=== PATIENT | female | born 1955 | race Caucasian/White ===

== ENCOUNTER 2023-06-11 12:08 | Inpatient (IN) | payer MEDICARE, OTHER, SELFPAY ==
[2023-05-16 10:59] VITALS: BMI 28.3
[2023-06-11] VITALS (18 sets, daily range): BP systolic 81–185; BP diastolic 50–98; PULSE 73–101; RESP 12–22; TEMP 35.6–36.8; O2SAT 5–100; BMI 28.3
[2023-06-11] MEDS: LACTATED RINGERS 1,000 ML 120 ML IV ×2 (13:57→16:02)
--- NOTE | 2023-06-11 13:59 | PM.PREOP ---
Pre-operative Note COVID-19 Criteria for continued procedure: Expected advancement of disease process, Possibility delay results in more complex future surgery or treatment, Increased loss of function, Continuing or worsening of significant or severe pain, Deterioration of the patient's condition or overall health and Delay expected to result in less-positive ultimate med/surg outcome Interval Note History & Physical reviewed/Exam performed by Physician: Yes Changes to H&P: No
[2023-06-11] MEDS: CEFAZOLIN 2 GM/100 ML PREMIX 100 ML IV ×2 (15:00→23:06)
--- NOTE | 2023-06-11 15:10 | SUR.OPER ---
Prone on spine table, head in foam head support, padded chest and pelvic supports, gel pad at knees, lower legs supported by pillows; nipples, genitalia and toes free of pressure, arms secured on foam padded arm boards at <90 degrees abduction. Tape over blanket at thigh secured to table.
[2023-06-11] MEDS: BUPIVACAINE LIPOSOME 266 MG/20 ML VIAL INJ (15:17)
[2023-06-11] MEDS: BUPIVACAINE 0.25% (PF) 30 ML, EPINEPHrine 0.15 MG INJ (15:17)
--- NOTE | 2023-06-11 17:00 | DI.RAD.S_ITS ---
PROCEDURE: XR LUMBAR SPINE 2-3V INDICATIONS: L3-4 TLIF TECHNIQUE: 2 spot fluoroscopic images of the lumbar spine were acquired. COMPARISON: None. FINDINGS: Spot fluoroscopic images demonstrate postsurgical changes from posterior fixation at L3-4 with bilateral pedicle screws, interbody rods, and a disc spacer. IMPRESSION: Status post posterior fusion at L3-4 with expected postoperative appearance. Approved by: Mathew Mann M.D. on 06/11/2023 at 17:08
--- NOTE | 2023-06-11 17:24 | P.OP_ITS ---
Operative Date/Time/Diagnoses Date of procedure: 06/11/23 Time of procedure: 17:25 Pre-op diagnosis: 1. L3-4 spinal stenosis with neurogenic claudication 2. Post laminectomy syndrome Post-op diagnosis: same Procedure & Clinicians Procedure: 1. L3-4 Postero-lateral and posterior interbody fusion 2. L3-4 interbody cage placement. 3. L3-4 decompressive laminectomy with bilateral facetecomies 4. L3-4 Posterior non-segmental instrumentation 5. [place] of bone marrow from iliac crest 6. Utilization of microsurgical technique and operating microscope Same procedure as scheduled: Yes Indications: Patient has been having chronic back pain and worsening lumbar radiculopathy and symptoms of neurogenic claudication. Patient failed multiple conservative management with worsening pain weakness and numbness in her lower extremity. Patient has been having difficulty performing activity of daily living. After discussing risks benefits of treatment options, patient elected proceed with surgery. Surgeon: Javed Vallecillo Entrepreneurial Finance Professor: Roseanne James Click Yes if Unassisted: No Anesthesia Type: General Operative Notes Closure Type: primary Specimen(s): none sent Prosthetic devices, grafts, tissues, transplants, or devices: Globus revolve screws, Rise cage Estimated Blood Loss (mL): 50 Blood products transfused: none Procedure in detail: Patient was seen in the preoperative area. Risks and benefits of the surgery was discussed with the patient. Informed consent was obtained from the patient and placed in the chart. Surgical site was marked. Patient was taken to the operative room. General anesthesia was administered. Prophylactic antibiotic was given to the patient less than 30 min before the incision was made. Patient was placed into a prone position on the Omar table. Patient's back was then prepped and draped in the sterile fashion. Time-out was performed at this time. Using AP and lateral C-arm imaging the interval between L3-4 was identified and marked on patient's back. A 2 inch incision 2 in from midline was made on the right side first. The fascia was incised in line with skin incision. Globus MARS retractors was placed inside the incision and docked onto the L3 lamina. Using microsurgical technique and operating microscope, a L3 laminectomy and L3- 4 facetectomy was performed using a Kerrison rongeur. The laminectomy and facetectomy was performed in order to decompress patient's cauda equina as well as the nerve roots exiting at the L3-4 level. The disc space at L3-4 was identified. And a total diskectomy was performed at L3-4 level. The endplates were decorticated using a rasp and shaver. The total diskectomy and decortication was performed at L3-4 level in order to to accomplish a L3-4 fusion. The local bone from the laminectomy and facetectomy was saved for local bone grafting. After the total diskectomy and decortication was completed, Globus DBM bone graft material was combined with local bone that was harvested earlier. At this time, a separate skin is incision was made over the iliac crest. A Jamshidi needle was inserted into the iliac crest through a separate skin incision. 5 cc of bone marrow aspiration was obtained through the separate skin incision using a Jamshidi needle from the iliac crest. The bone marrow aspiration was combined with local bone and DBM bone grafting material. The bone grafting material was placed into the L3-4 interbody space along with a expandable cage. The cage was expanded to its maximum height using the torque limiting screwdriver. At this time a mirror image incision was made on the left side. The fascia was incised in line with the skin incision. Globus MARS retractor was inserted and docked onto the L3-4 posterolateral gutter. Using the power drill, posterior- lateral decortication was performed at L3-4 level until bleeding cortical bone was identified. The remaining bone grafting material was placed into the L3-4 posterior lateral gutter he order to accomplish posterolateral fusion at the L3- 4 level. Using the double C-arm technique, pedicle screws were placed into the L3-4 pedicles bilaterally. This was done by placing the Jamshidi needle into the pedicles, then placing the guidewires over the Jamshidi needle, and finally placing the cannulated screws over the guidewires bilaterally. After the pedicle screws were placed, 2 titanium rods was locked into the heads of the pedicle screws using locking caps and torque limiting screwdriver. After all the hardware was placed, and confirmed with AP and lateral C-arm imaging, the wound was then irrigated with sterile normal saline and packed with Ray-Navya gauze for 3 min to accomplish hemostasis. After the gauze was removed the deep fascia was closed with #1 Vicryl suture. The subcutaneous layer was closed with 2-0 Vicryl. The skin was closed with skin alnana. Patient tolerated the procedure well. There were no complications. Complications: none Post-operative Condition: stable Disposition: PACU Plan for aftercare: Admit to inpatient hospital
[2023-06-11] MEDS: fentaNYL 100 MCG/2 ML INJ IV (17:40)
[2023-06-11] MEDS: hydrOXYzine 50 MG/ML INJ 25 MG IM (17:55)
[2023-06-11] MEDS: ALBUTEROL/IPRATROPIUM 3 ML AMPUL INH (18:20)
--- NOTE | 2023-06-11 19:05 | PC.NURSE ---
Assess- Patient is alert and oriented x2/3. Just up from pacu. Patient had a TLIF. Dressing is cdi to lower back. Patient was moving restlessly down in pacu and making jerking movements and sticking her tongue out. Given Vistaril and other pain medications down in PACU. She has a hx of smoking a pack a day and has a dx of copd. Patient is satting around 90%. Her blood pressure is wnl and her is at her bedside.
[2023-06-11] MEDS: LACTATED RINGERS 1,000 ML 125 ML IV (19:49)
[2023-06-11] MEDS: GABAPENTIN 400 MG CAPSULE 800 MG PO (20:58)
[2023-06-11] MEDS: ACETAMINOPHEN 325 MG TABLET 650 MG PO (20:58)
[2023-06-11] MEDS: SENNOSIDES 8.6 MG TABLET 17.2 MG PO (20:58)
[2023-06-11] MEDS: DOCUSATE 100 MG CAPSULE PO (20:58)
[2023-06-11] MEDS: HYDROMORPHONE 0.5 MG INJ IV (20:59)
[2023-06-12] VITALS (8 sets, daily range): BP systolic 142–153; BP diastolic 54–117; PULSE 79–92; RESP 16–20; TEMP 35.8–36.9; O2SAT 86–94
[2023-06-12] MEDS: OXYCODONE IR 10 MG TABLET PO ×4 (04:30→20:21)
[2023-06-12] MEDS: ACETAMINOPHEN 325 MG TABLET 650 MG PO ×3 (04:30→22:13)
[2023-06-12] MEDS: LACTATED RINGERS 1,000 ML 125 ML IV (04:30)
[2023-06-12] MEDS: CEFAZOLIN 2 GM/100 ML PREMIX 100 ML IV (06:22)
--- NOTE | 2023-06-12 07:50 | PM.PNPO.1 ---
Subjective Subjective Date Patient Seen: 06/12/23 Time Patient Seen: 07:50 Interval history: Patient's pain is [id number]. Denies fever or chills. No nausea or vomiting. Patient's is home to assist her. Exam Vital Signs (past 8 hours): - 06/12/23 06:24 Pulse Rate 79 Respiratory Rate 16 Pulse Oximetry 94 Oxygen Flow Rate 5 Oxygen Delivery Method Nasal Cannula Oxygen Flow Rate 5 Narrative Exam Narrative: Pleasant 68-year-old female resting comfortably in bed in no apparent distress. Motor functions intact bilateral lower extremities. Sensation grossly intact to light touch bilateral lower extremities. Const General: cooperative and comfortable Nutritional Appearance: average body habitus Orientation: alert Resp Effort & Inspection: normal respiratory effort and able to speak in complete sentences PFSH Medical History Brain aneurysm Chronic kidney disease COPD (chronic obstructive pulmonary disease) Duodenal ulcer perforation Erythrocytosis History of common carotid artery stent placement Hyperlipidemia Hypertension Primary hyperparathyroidism Smoker Surgical History History of appendectomy History of surgical procedure History of surgical procedure Hx of tonsillectomy Social History household members: spouse Smoking Status: Current every day smoker alcohol intake: current Assessment & Plan Post-op Postoperative Procedures: Procedures Operation Date: 06/11/23 14:45 Actual Procedure Side Surgeon p L3-4 BRENNA Vallecillo MD Postoperative day: 1 Postoperative status: doing well Postoperative plan: routine post-op care Postoperative plan narrative: Disposition today or tomorrow pending physical therapy Quality VTE Deep Vein Thrombosis/Pulmonary Embolism Present on Admission: No
[2023-06-12] MEDS: METOPROLOL ER 50 MG TABLET PO (08:57)
[2023-06-12] MEDS: PRAMIPEXOLE 0.25 MG TABLET PO ×2 (08:57→20:20)
[2023-06-12] MEDS: ATORVASTATIN 20 MG TABLET 80 MG PO (08:58)
[2023-06-12] MEDS: GABAPENTIN 400 MG CAPSULE 800 MG PO ×2 (08:58→20:21)
[2023-06-12] MEDS: AMLODIPINE 5 MG TABLET 10 MG PO (08:58)
[2023-06-12] MEDS: PANTOPRAZOLE DR 40 MG TABLET PO (08:58)
[2023-06-12] MEDS: DOCUSATE 100 MG CAPSULE PO ×2 (08:58→20:19)
[2023-06-12] MEDS: LOSARTAN 25 MG TABLET PO (08:58)
--- NOTE | 2023-06-12 10:44 | CM.DANOTE ---
Addendum entered by DARWIN Izaguirre 06/12/23 14:08: Daniella at [facility] reports they can accept patient pending 3 midnight stay. Transport arrangements to follow if needed. DM Program Planner Basilia faxed PT/OT notes to Daniella when available. SL Addendum entered by DARWIN Izaguirre 06/12/23 12:13: PT/OT rec SNF at this time. GROUT MACHINE OPERATOR spoke with patient and spouse at bedside. Patient adamantly does not want SNF and wants to go home,. Patient agreed to let this GROUT MACHINE OPERATOR put a ref to [facility] for now but reports not wanting it. GROUT MACHINE OPERATOR informed patient of 3 midnight requirement for SNF and patient wants to d/c home today. GROUT MACHINE OPERATOR encouraged patient to have that conversation with [facility]. Spouse agrees that he can assist with her d/c needs. GROUT MACHINE OPERATOR updated nursing staff. CM Program Planner Basilia faxed initial ref to [facility]. GROUT MACHINE OPERATOR spoke with Daniella at [facility]. Agreed to review case. Filling up on beds now and reports a few days would be ideal. Plan: patient likely to d/c home due to preference. Daniella at [facility] reviewing ref. CM team will continue to follow closely. Original Note: DCP Assessment Note: Patient is a 68yo f here following planned TLIF with Dr. Vallecillo on 06/11/23, additional PMH of restless leg syndrome? [facility] note reports d/c today or tomorrow pending how patient does with PT/OT. PCP Dr. Karri Powers [facility]. Per RN, able to get up with nursing but nurse had to brace her due to baseline muscle spasms causing difficulty with mobility. GROUT MACHINE OPERATOR entered room and introduced self and role. Patient resting in chair and accompanied by spouse Neo ([phone]) at bedside. Patient reports being indep at baseline but struggled with being active recently due to pain in back. Uses 02 at home. Has a cane/walker, no steps into house. Does not drive due to involuntary muscle spasms and drives her and can assist her at home. PT/OT eval pending at this time. Plan: pending PT/OT eval, likely home when medically stable. Transport with in POV. CM team will continue to follow as needed. DARWIN Izaguirre Discharge Planning/Care Management CM Discharge Assessment Start: 06/12/23 10:43 Freq: Status: Active Protocol: Document 06/12/23 10:43 SL (Rec: 06/12/23 10:44 SL [id number]) Discharge Planning Assessment Assigned Train Caller DARWIN Malloy DPOA/Assigned Designee Name Neo Esposito (spouse) Contact Information [phone] Advance Directives? No History Provided By Patient,Medical Record Prior Living Arrangements House Household Members spouse Type of transporation used prior to Relies on Others admit Comment has been driving her for two years Independent with ADL's Yes Is patient alert and oriented? Yes Needs Assistance With Home Chores / Shopping DME Already Rented / Owned FWW / Walker,Cane,Oxygen Discharge Plan Home Transportation Arrangement spouse in POV Whiteboard Updated in Patient Room with Yes name and ext. # of Train Caller Review Status In Process Next Review Type Continued Stay Review Pre-Anesthesia Assessment Start: 05/16/23 10:59 Freq: Status: Complete Protocol: Document 05/16/23 10:59 AK (Rec: 05/16/23 11:39 AK [id number]) Pre-Anesthesia Assessment Patient Information Reviewed Via Phone Assessment Assessment Completed With Patient Diagnostic Results BMP/CMP,CBC Primary Care Provider Karri Powers Medical Clearance Received Yes Specialist Seen Inspector Eyeglass,Orthopedist, Carpet Measurer Comment Cardiology and pulmonology clearance recevied. Preferred Language Comoran Height 157.48 cm Weight 70.307 kg Body Mass Index (BMI) 28.3 Hearing Ability Normal Visual Impairment Partially Limited Visual Assist Glasses Dentition Type Full- Upper Barriers to Learning None Hx Anesthesia Reactions No Hx Family Anesthesia Reaction No Hx Malignant Hyperthermia No Hx Blood Transfusions No Anesthesia Review Requested No Night Worker No alcohol intake current alcohol intake frequency holidays/special occasions only Smoking Status Current every day smoker Tobacco type cigarettes Smoking cigarettes per day 15 Substance Use Type does not use Pain Present Pain Reported Comment back, right leg pain Musculoskeletal Symptoms Back Pain,Difficulty Walking, Radiating Pain into Limb History of Falling (Recent or History of Yes ) Comment Last fall 6-8 mo ago Patient is completely paralyzed or No completely immobile Ambulatory Aid Crutches/cane/walker Prosthesis or Orthotic Device Cane,Front Wheel Walker Gait/Transferring Weak Mental Status Oriented to own ability Is patient on oxygen? Yes: Bedtime 2L Does patient have CERON/SOB No Hx Sleep Apnea No Currently Taking a Beta Brown Yes: Metoprolol Can You Climb a Flight of Stairs Without No SOB Hx Chest Pain No Hx SOB No Hx Syncope or Dizziness No Anti-Coagulant Therapy Yes: Plavix and aspirin Has a Inspector Eyeglass Yes Inspector Eyeglass name Dr Mcwilliams at [facility] Cardiology Cardiac Testing Yes: EKG at [facility] Hx Pacemaker/ICD No Pacemaker Rep Required? No Cardiac Clearance Received Yes Comment Patient to stay on Asirin 81mg preop per cardio but needs to clarify plavix Diet Type At Home Regular Dysphagia No Urinary Catheter Present No Hx Urinary Self Catheterization No Diabetes Yes HgbA1C 6.9 Date 53 Patient No Lactating No Hx Drug Resistant Organism No Presence of External or Internal Medical Yes: 9 coils in brain; cardiac Devices stent Marital Status Lives With spouse Current Living Arrangements House Number of Floors (Floors) One Floor Number of Stairs To Enter/Railing? none Support System Spouse Does the Patient Have Assistance After Yes Surgery Patient Discharge Plan Description Return Home Feels Safe in Current Environment Yes Been Physically Hurt or Threatened By a No Person in Current Environment Do you have thoughts of harming yourself None or others? Are you currently considering suicide? No Do you have a plan to hurt yourself or No Plan others? Do You Have Any Spiritual Beliefs That No May Affect Your HC Choices? Do You Have Any Cultural Practices That No May Affect Your HC Choices? Who Can We Speak to About Patient's Care Neo Esposito Identifying Code for Release of Patient Declined Information Health Care Proxy/Next of Kin Neo Esposito Health Care Proxy Emergency Contact Name Neo Esposito Emergency Contact Advance Directives? No PAC Instructions Assistance for 24 hours post- op,Diabetes instructions,Do not shave/clip surgical site, Durable medical equipment, Medications to take/avoid, Nasal antibiotic,No ETOH/ petroleum product on skin DOS, NPO,Post-op transportation,Pre -surgical wash,Sensory aids, Sturdy shoes/comfortable clothes,Do not bring valuables and remove jewelry
--- NOTE | 2023-06-12 10:48 | PT.IIE ---
Current Diagnoses Spinal stenosis, lumbar region with neurogenic claudication (06/11/23) Postlaminectomy syndrome, not elsewhere classified (06/11/23) Surgery Performed Operation Date: 06/11/23 14:45 Actual Procedures p L3-4 TLIF - Javed Vallecillo MD Surgical History (Last Reviewed 06/12/23 @ 11:50 by Favio Decker DO) History of appendectomy History of surgical procedure History of surgical procedure Hx of tonsillectomy Medical History Brain aneurysm Chronic kidney disease COPD (chronic obstructive pulmonary disease) Duodenal ulcer perforation Erythrocytosis History of common carotid artery stent placement Hyperlipidemia Hypertension Primary hyperparathyroidism Smoker Physical Therapy Inpatient Evaluation/Re-Eval M1 PT/OT-IP Prior Functional Status Start: 06/12/23 13:00 Freq: NEEDED Status: Active Protocol: Document 06/12/23 13:00 AB (Rec: 06/12/23 13:28 AB [id number]) Medical Review Prior Functional Status Medical History Reviewed Yes Communication Pt is able to express all needs. Mobility and Gait Pt reports she ambulates with 4WW or SPC in her home at baseline. Activities of Daily Living and IADL's IND with all ADLs, performs all IADLs Prior Functional Level (Other details) Pt reports she uses 2L of supplemental O2 at night. She also reports having difficulty with her balance and fine motor control. Social History Household Members spouse Living Arrangements House Number of Floors (Floors) One Floor Number of Stairs To Enter/Railing? No YEHUDA, only a threshold. Home Environment Standard Height Toilet,Walk in Shower,Built-In Shower Seat Home Equipment Four Wheel Walker,Straight Cane,Shower Seat without Backrest,Hand Held Shower,Grab Bars Near Toilet,Grab Bars In Shower Additional Social History Comment Pt lives with her who is able to assist her 16/04 if needed. M2 PT-IP Current Condition Start: 06/12/23 13:00 Freq: NEEDED Status: Active Protocol: Document 06/12/23 13:00 AB (Rec: 06/12/23 13:28 AB [id number]) Physical Therapy Current Condition Current Condition Evaluation Date 06/12/23 Treatment Diagnosis s/p lumbar TLIF L3-L4 Onset Date 06/11/23 M3 PT-IP Subjective Start: 06/12/23 13:00 Freq: NEEDED Status: Active Protocol: Document 06/12/23 13:00 AB (Rec: 06/12/23 13:28 AB [id number]) Subjective Physical Therapy Visit Type Type Initial Evaluation Visit Start Time 10:48 Visit Stop Time 11:24 Total Visit Minutes 32 Notes Pt presents in recliner with in the room. Physical Therapy Visit Comments Patient Comments Pt reports her current pain level is 1-2/10 and is agreeable to PT and OT eval this morning. Therapy Pain Assessment Pain When Pain Assessed At Rest Pain Present Pain Present Pain Reported Location Back Intensity 2 M4 PT-IP Mobility and Gait Start: 06/12/23 13:00 Freq: NEEDED Status: Active Protocol: Document 06/12/23 13:00 AB (Rec: 06/12/23 13:28 AB [id number]) PT-Bed Mobility Assessment Rolling Type of Rolling Log Rolling Level of Assist Standby Assistance Sit to Supine Sit to Supine Moderate Assistance,1 Person Assistance Scooting Scooting to Edge of Bed Standby Assistance Scooting Up and Down in Bed Standby Assistance PT-Transfer Assessment Sit to and From Stand Sit to and from Stand Moderate Assistance,2 Person Assistance,Use of Upper Extremities Equipment Transfer Assistive Device Gait Belt,Front Wheeled Walker Transfers Transfer Destination Bed,Chair,Bedside Commode Transfer Technique Stand Step Pivot Transfer Ability Level of Assist Moderate Assistance,Maximum Assistance,2 Person Assistance Comments Mobility Comments Pt required assistance from PT and OT to block/guard knees to avoid buckling due to incoordination and strength deficits. Gait Assessment Factors Limiting Gait Function Factors Limiting Gait Function Incoordination,Poor Balance Comments Gait Comments Unable to assess gait due to poor balance and incoordination noted when performing transfer. Stair Climbing Assessment Comments Stair Climbing Comments Unable to assess gait due to poor balance and incoordination noted when performing transfer. PT-Balance Assessment Sitting Balance and Reactions Static Sitting Balance Ability Good Dynamic Sitting Balance Ability Fair Standing Balance and Reactions Static Standing Balance Ability Poor Dynamic Standing Balance Ability Poor Device Used FWW M5 PT-IP Objective Assessments Start: 06/12/23 13:00 Freq: NEEDED Status: Active Protocol: Document 06/12/23 13:00 AB (Rec: 06/12/23 13:28 AB [id number]) Orientation Orientation/Cognition Level of Alertness Alert Orientation Name,Age,Birthday,Month,Date, Year,Day of Week,Place, Situation Language Function Ability No Deficits Noted Safety Awareness Understands Safety Issues Memory Description No Deficits Noted Gross Range of Motion Upper Extremity ROM Assessment Within Functional Limits Lower Extremity ROM Assessment Within Functional Limits Strength Upper Extremity Strength Assessment Within Functional Limits Lower Extremity Strength Assessment Bilaterally Impaired M6 PT-IP Treatment Start: 06/12/23 13:00 Freq: NEEDED Status: Active Protocol: Document 06/12/23 13:00 AB (Rec: 06/12/23 13:28 AB [id number]) Physical Therapy Treatment Education Education Provided Precautions,Post-Op Packet, Safety Brace Education Patient,Caregiver Other Treatments Other Treatment Performed At beginning of session, the pt's BP is at 154/66, and denied symptoms of dizziness or lightheadedness throughout the session. Pt required use of bedside commode in order to change her soiled brief. She required maxA to don and doff brief due to spinal precautions and imbalance when standing. However, she was able to perform pericare with cues to remind pt of spinal precautions. At end of session , the pt returned to bed with all needs met, call light within reach and at bedside. M7 PT-IP Assessment and Plan Start: 06/12/23 13:00 Freq: NEEDED Status: Active Protocol: Document 06/12/23 13:00 AB (Rec: 06/12/23 13:28 AB [id number]) PT Summary Assessment and Plan Potential Rehabilitation Potential Fair Status of Condition at Evaluation Stable Summary Impairments Pain,ROM,Strength,Balance, Coordination,Bed Mobility, Transfers,Gait,Activity Tolerance Assessment Summary Celi Esposito is a 68 year old female patient who is s/p lumbar TLIF L4-L5 performed on 06/11/23. PT and OT presented to conduct respective evaluations. At baseline, the pt reports balance deficits and difficulty with fine motor control tasks, and relied on 4WW or SPC for ambulation. Today's PT evaluation revealed significant functional mobility deficits. She currently requires SBA to Irish to perform bed mobility, modA x2 for STS, mod-maxA x2 for transfers due to imbalance, LE weakness and coordination deficits. She required assistance from both PT and OT to prevent knees from buckling. Ambulation and stairs were not attempted this session due to the pt's deficits. Based on her current level of function, PT recommends the pt discharge to SNF in order to improve her deficits to increase her level of function. FWW is also recommended at this time due to her deficits. Goals Bed Mobility Goal Independent Transfer Goal Standby Assistance,Front Wheeled Walker Gait Goal Standby Assistance,Front Wheel Walker Gait Distance 50 Other Goals Pt to recall 3/3 lumbar spine surgical precautions in order to improve her post operative outcomes and improve her safety. Days to Meet Goals 5 Frequency of Treatment Frequency Of Treatment Twice a Day Treatment Plan Physical Therapy Treatment Plan Bed Mobility Training,Transfer Training,Gait Training, Therapeutic Exercise,Balance Retraining,Post Op Education, Discharge Planning,Hot or Cold Pack,Neuromuscular Re-ed, Coordination Retraining,Manual Therapy Precautions Lumbar Precautions Log Roll,No Twisting,Limit Bending,Lifting Restriction of 10 lbs,Gait Belt above Incisional Area Other Precautions Fall risk Weight Bearing Status Weight Bearing Status Weight Bear as Tolerated Recommendations To Nursing Amount of Assist Needed PT/OT Assist Only Discharge Recommendations PT Discharge Recommendations SNF Rehab Equipment Needed for Home Before FWW Discharge Transportation Needs at Discharge Private Vehicle,Wheelchair/ Cabulance
--- NOTE | 2023-06-12 11:24 | OT.IP.EVAL ---
Current Diagnoses Spinal stenosis, lumbar region with neurogenic claudication (06/11/23) Postlaminectomy syndrome, not elsewhere classified (06/11/23) Surgery Performed Operation Date: 06/11/23 14:45 Actual Procedures p L3-4 TLIF - Javed Vallecillo MD Past Medical History Brain aneurysm Chronic kidney disease COPD (chronic obstructive pulmonary disease) Duodenal ulcer perforation Erythrocytosis History of common carotid artery stent placement Hyperlipidemia Hypertension Primary hyperparathyroidism Smoker Surgical History (Last Reviewed 06/12/23 @ 11:50 by Favio Decker DO) History of appendectomy History of surgical procedure History of surgical procedure Hx of tonsillectomy Occupational Therapy Inpatient Evaluation/Re-Eval M1 PT/OT-IP Prior Functional Status Start: 06/12/23 13:21 Freq: NEEDED Status: Active Protocol: Document 06/12/23 11:25 [facility] (Rec: 06/12/23 13:55 [facility] [id number]) Medical Review Prior Functional Status Medical History Reviewed Yes Communication Independent Mobility and Gait Pt states uses a 4ww at home at all times. Activities of Daily Living and IADL's Pt wears slip on shoes and has had pain for ADL and needs and her does the IADL needs. Prior Functional Level (Other details) Pt has Social History Household Members spouse Living Arrangements House Number of Floors (Floors) One Floor Number of Stairs To Enter/Railing? Pt just has a threshold to get through the front door and one inch step to get into the shower. Home Environment Standard Height Toilet,Walk in Shower Home Equipment Four Wheel Walker,Shower Seat without Backrest,Hand Held Shower,Grab Bars Near Toilet, Grab Bars In Shower Additional Social History Comment Pt has a suction cup grab bar for the shower. M2 OT-IP Current Condition Start: 06/12/23 13:21 Freq: Status: Active Protocol: Document 06/12/23 11:25 [facility] (Rec: 06/12/23 13:55 [facility] [id number]) Occupational Therapy Current Condition Current Condition Evaluation Date 06/12/23 Treatment Diagnosis S/P L3-4 TLIF Diagnosis Onset Date 06/11/23 Post Operative Precautions Lumbar Precautions Log Roll,No Twisting,Limit Bending,Lifting Restriction of 10 lbs,Gait Belt above Incisional Area M3 OT- IP Subjective and Pain Start: 06/12/23 13:21 Freq: Status: Active Protocol: Document 06/12/23 11:25 [facility] (Rec: 06/12/23 13:55 [facility] [id number]) OT- Subjective Occupational Therapy Visit Type Type Initial Evaluation Visit Start Time 10:47 Visit Stop Time 11:24 Total Visit Minutes 37 Occupational Therapy Visit Comments Patient Comments Pt already in the recliner and agreed to get up. Pt's in the room. Patient/Caregiver Goals Pt wanting to go home but willing to go to skilled rehab if needed. OT Pain Assessment Pain When Pain Assessed During Mobility Pain Present Pain Present Pain Reported Location Back Intensity 5 Scale Used Numeric (0 - 10) M4 OT- IP ADL's Start: 06/12/23 13:21 Freq: Status: Active Protocol: Document 06/12/23 11:25 [facility] (Rec: 06/12/23 13:55 [facility] [id number]) OT [id number] Comments OT Self-Feeding Comments Not at meal time. OT ADL-Grooming Comments OT Grooming Comments Not performed. OT ADL-Oral Care Comments Oral Care Comments Pt refused. Educated pt best to spit into a cup for oral care needs. OT ADL-Dressing General Eval Lower Body Dressing Ability Maximum Assistance Areas Needing Assistance Socks Comments OT Dressing Comments Able to talk about LB dressing equipment for pt for LB dressing needs. OT ADL-Toileting General Evaluation Toileting Ability Moderate Assistance Areas Needing Assistance Manage Clothing,Perform Perineal Hygiene Comments OT Toileting Comments Pt able to wipe appropriately from the front. Pt needing assist for brief management needs and completeness for hygiene while standing with the FWW. Suggested pt get a BSC as pt gets up2-3 times at night and her bathroom is 15ft away at home. OT ADL-Bathing Comments OT Bathing Comments Not performed. M5 OT- IP IADL's Start: 06/12/23 13:21 Freq: Status: Active Protocol: Document 06/12/23 11:25 [facility] (Rec: 06/12/23 13:55 [facility] [id number]) OT-Instrumental Activities of Daily Living Deficits IADL Deficits Identified Deficits Home Safety Awareness Awareness of Need for Assistance at Home Decreased Awareness Home Safety Comments Pt is forgetful that she just had back surgery and assuming that she is able to do it on her own or that he is capable to assist. At this time would be best for her to assist with her needs as she is forgetful. Meal Preparation Meal Preparation Caregiver Provides Assist Feather Stitcher Feather Stitcher Caregiver Provides Assist M6 OT- IP Functional Cognition Start: 06/12/23 13:21 Freq: Status: Active Protocol: Document 06/12/23 11:25 [facility] (Rec: 06/12/23 13:55 [facility] [id number]) Cognitive Factors Limiting Selfcare Function Cognitive Ability Level of Alertness Alert Patient Orientation Name,Place,Situation Attention Span Ability Capable of Focused Attention, Capable of Sustained Attention Ability to Follow Commands Able to Follow One Step Commands with Increased Time, Able to Follow One Step Commands with Repetition Memory Description Short Term Impaired Safety Awareness Decreased Recall of Precautions,Decreased Ability to Apply Precautions, Underestimates Need for Assistance Cognitive Comments Cognitive Assessment Comments Pt needing vc to follow the back precautions, vc for hand placement to push up from the armrests , vc to straighten her legs out while standing. OT- Vision and Hearing OT- Hearing Assessment OT- Hearing Assessment WFL OT- Vision Assessment Visual Acuity Glasses All The Time Visual Attentiveness WFL Occular Pursuits WFL M7 OT- IP Mobility and Balance Start: 06/12/23 13:21 Freq: Status: Active Protocol: Document 06/12/23 11:25 [facility] (Rec: 06/12/23 13:55 [facility] [id number]) OT- Bed Mobility Assessment Sit to Supine Sit to Supine Assist Moderate Assistance OT-Transfer Assessment Sit to and From Stand Sit to and from Stand Moderate Assistance,2 Person Assistance Transfers Transfer Ability Moderate Assistance,Maximum Assistance,2 Person Assistance Technique Transfer Destination Bed,Bedside Commode,Chair Transfer Technique Stand Step Pivot Devices Transfer Assistive Devices Gait Belt,Front Wheeled Walker Comments Mobility Comments Pt MOD x2 to stand as pt's legs tend to buckle and after able to get her upright needing MOD/MAX Ax2 to transfer to the [facility] with FWW, assist for balance , to help keep upright and to help guide the FWW. Pt needing heavy use of her hands on the FWW for mobility. OT- Gait Assessment Comments Gait Ability Comments Jut transfer at this time. OT- Balance Assessment Sitting Balance and Reactions Static Sitting Balance Ability Good Dynamic Sitting Balance Ability Fair Standing Balance and Reactions Static Standing Balance Ability Poor Dynamic Standing Balance Ability Poor M8 OT- IP Objective Assessments Start: 06/12/23 13:21 Freq: Status: Active Protocol: Document 06/12/23 11:25 [facility] (Rec: 06/12/23 13:55 [facility] [id number]) OT Gross Range of Motion Upper Extremity Range of Motion Assessment Within Functional Limits OT Strength Upper Extremity Strength Assessment Within Functional Limits M9 OT- IP Assessment and Plan Start: 06/12/23 13:21 Freq: Status: Active Protocol: Document 06/12/23 11:25 [facility] (Rec: 06/12/23 13:55 [facility] [id number]) OT Summary Assessment and Plan Potential Rehabilitation Potential Good Analytic Complexity at Evaluation Low Summary OT Impairments Pain,Strength,Balance, Sensation,Functional Mobility, Grooming,Dressing,Toileting, Bathing,Toilet Transfers, Shower Transfers,Activity Tolerance Progress Towards Goals Slow Progress due to Pain,Slow Progress due to Medical Issues,Slow Progress due to Activity Tolerance Assessment Summary Pt low complexity and main barriers are pain, ataxic movement for her BLE, decreased balance, BLE buckling, and now needing extensive two person assist for ADL and mobility needs. At this time pt's care is too great for her to assist and pt is open to going to skilled rehab. Suggested pt will benefit from BSC, FWW, and LB dressing equipment at home to use. Goals Self-Feeding Goal Independent Grooming Goal Independent Dressing Goal Independent Toileting Goal Independent Bathing Goal Independent Toilet Transfer Goal Independent Shower Transfer Goal Independent Patient/Caregiver Education Goal Demonstrate Post-Op Precautions,Caregiver Independent Assisting Patient Days to Meet Goals 15 Frequency of Treatment Frequency Of Treatment Once a Day Treatment Plan OT Treatment Plan ADL Training,Functional Cognition Training,Functional Mobility,Patient/Family Education,Discharge Planning Other Treatment Recommendations and Next Pt to practice use of LB Treatment Focus dressng equipment. Discharge Recommendations OT Discharge Recommendations SNF Rehab Other Discharge Recommendations Hopefully if pt improve possibly home with 16/04 assist . Home Equipment Needs BSC, FWW, LB dressing equipment Transportation Needs at Discharge Wheelchair/Cabulance
--- NOTE | 2023-06-12 11:48 | PM.CN ---
History of Present Illness Consult details Date Patient Seen: 06/12/23 Time Patient Seen: 11:48 Chief complaint: TLIF Reason for consult: worsened respiratory status after surgery Requesting provider: Javed Vallecillo Narrative: This is a 68 year old female with PMH of prior brain aneurysm, CKD, COPD with chronic respiratory failure on 2L O2 at home, type 2 DM, previous duodenal ulcer perforation, carotid stent placement, HTN, active smoker at 0.5 ppd who underwent posterior lumbar fusion with Dr. Vallecillo yesterday. She was on 4-5L of O2 after surgery. By this morning she has returned to her usual 2L and is currently at 91%. She denies recent cough, fever, chills. She states she started on oxygen after an RSV infection last year and has not been able to come off since. She has no shortness of breath today, abdominal pain, nausea, vomiting and feels her usual self. Meds Home Medications and Allergies Home Medications Medication Instructions Recorded Confirmed Type acetaminophen 500 mg tablet 1,500 mg PO Q3H PRN Pain (Scale 05/16/23 06/11/23 History Score 1-3) albuterol sulfate 90 mcg/actuation 2 puff inhalation Q4-6H PRN Dyspnea 05/16/23 06/11/23 History aerosol inhaler amlodipine 10 mg tablet 10 mg PO DAILY 05/16/23 06/11/23 History aspirin 81 mg capsule 81 mg PO DAILY 05/16/23 06/11/23 History atorvastatin 80 mg tablet 80 mg PO DAILY 05/16/23 06/11/23 History clopidogrel 75 mg tablet 75 mg PO DAILY 05/16/23 06/11/23 History glipizide 2.5 mg tablet, extended 2.5 mg PO DAILY 05/16/23 06/11/23 History release 24 hr losartan 25 mg tablet 25 mg PO DAILY 05/16/23 06/11/23 History metoprolol succinate 50 mg 50 mg PO DAILY 05/16/23 06/11/23 History tablet,extended release 24 hr pantoprazole 40 mg tablet,delayed 40 mg PO DAILY 05/16/23 06/11/23 History release pramipexole 0.25 mg tablet 0.25 mg PO DAILY 05/16/23 06/11/23 History gabapentin 400 mg capsule 800 mg PO BID 06/11/23 06/11/23 History Allergies Allergy/AdvReac Type Severity Reaction Status Date / Time lisinopril AdvReac Unknown Cough Verified 06/11/23 13:17 NSAIDS (Non-Steroidal AdvReac Unknown stomach Verified 06/11/23 13:17 Anti-Inflamma ulcer Review of Systems Review of Systems Narrative: All other systems reviewed with the patient and are negative unless otherwise stated. Exam Vital Signs (past 8 hours): - 06/12/23 06:24 06/12/23 07:00 06/12/23 08:52 Temperature 96.4 F L Pulse Rate 79 92 H Respiratory Rate 16 18 Blood Pressure 153/117 H 142/57 H Pulse Oximetry 94 93 Oxygen Delivery Method Oxygen Flow Rate 5 4 06/12/23 08:57 06/12/23 08:58 06/12/23 10:23 Temperature Pulse Rate Respiratory Rate Blood Pressure 142/57 H 142/57 H Pulse Oximetry 92 Oxygen Delivery Method Nasal Cannula Oxygen Flow Rate 4 Oxygen Delivery Method Nasal Cannula Oxygen Flow Rate 4 Narrative Exam Narrative: General:? Patient is well developed and well nourished, in no distress at this time. HEENT:? Normocephalic, atraumatic, extraocular muscles intact, oral pharynx is clear and mucous membranes are moist. Neck: supple and symmetric, trachea is midline, no cervical adenopathy. Negative for JVD Chest:? Normal AP diameter and contour without kyphoscoliosis, no tachypnea, equal chest rise bilaterally. Lungs:? CTA b/l no wheezing rhonchi or rales. Cardio:?RRR no m/r/g. Musculoskeletal:? Muscle strength and tone are equal within normal limits, no deformity. Extremities: No edema or joint effusions. No cyanosis or clubbing. Skin:? Pale,? Warm to touch,dry and intact without rashes, ulcerations or petechiae.? Neuro:? Alert and orientated x3,? sensation to touch intact in all extremities, no gross deficits noted of cranial nerves. Psych:? Patient has a well-kept appearance, appropriate affect, mental status attitude thought context and judgment are appropriate for age. PFSH Medical History Brain aneurysm Chronic kidney disease COPD (chronic obstructive pulmonary disease) Duodenal ulcer perforation Erythrocytosis History of common carotid artery stent placement Hyperlipidemia Hypertension Primary hyperparathyroidism Smoker Surgical History History of appendectomy History of surgical procedure History of surgical procedure Hx of tonsillectomy Social History household members: spouse Tobacco & Substance Use Smoking Status: Current every day smoker alcohol intake: current substance use type: does not use Assessment & Plan Assessment & Plan narrative: 1. Acute on chronic respiratory failure (secondary to chronic COPD without exacerbation) with hypoxia secondary to medication, resolved. - Given improvement this morning, along with lack of symptomatology including chest pain, shortness of breath, or cough no further evaluation needed at this time. - highly likely respiratory depression in the setting of opiate use and anesthesia, try to limit opiates as much as possible moving forward. - No changes to her usual home medications are recommended, continue albuterol neb as needed. 2. HTN - continue home medications of amlodipine, losartan and metoprolol without change 3. DM type 2 - okay to continue home glipizide. 4. PUD with prior perforation - continue home pantoprazole 40 mg - no NSAID use. 5. s/p lumbar fusion - - continue pain management per primary service - dvt ppx per primary service 6. hx of carotid stent - continue asa and statin therapy. Code: Full, surrogate is patient's spouse I have utilized all available immediate resources to obtain, update, or review the patient's current medications. Given improvement to baseline, at this time and no further evaluation necessary, hospitalist service will sign off at this time. Do not hesitate to reach out to contact lens blocker and cutter hospitalist with additional questions if needed or if new problems arise.
[2023-06-12] MEDS: hydrOXYzine pamoate 25 MG CAPSULE PO ×2 (15:12→22:13)
--- NOTE | 2023-06-12 15:40 | PT.IPTN ---
Current Diagnoses Spinal stenosis, lumbar region with neurogenic claudication (06/11/23) Postlaminectomy syndrome, not elsewhere classified (06/11/23) Surgery Performed Operation Date: 06/11/23 14:45 Actual Procedures p L3-4 TLIF - Javed Vallecillo MD Physical Therapy Treatment Note M2 PT-IP Current Condition Start: 06/12/23 13:00 Freq: NEEDED Status: Active Protocol: Document 06/12/23 13:00 AB (Rec: 06/12/23 13:28 AB [id number]) Physical Therapy Current Condition Current Condition Evaluation Date 06/12/23 Treatment Diagnosis s/p lumbar TLIF L3-L4 Onset Date 06/11/23 M3 PT-IP Subjective Start: 06/12/23 13:00 Freq: NEEDED Status: Active Protocol: Document 06/12/23 16:41 TS (Rec: 06/12/23 17:11 TS [id number]) Subjective Physical Therapy Visit Type Type Treatment Note Visit Start Time 15:40 Visit Stop Time 16:15 Total Visit Minutes 35 Notes Spouse present Number of SKID STRAPPER Visits 1 Physical Therapy Visit Comments Patient Comments Pt found resting in bed, reports pain is 7/10, is agreeable to PT. Therapy Pain Assessment Pain When Pain Assessed At Rest Pain Present Pain Present Pain Reported Location Back Intensity 7 Scale Used Numeric (0 - 10) Description With Movement Pain Behaviors Facial Grimacing,Moaning, Restlessness,Wincing Pain Management Techniques Apply Cold,Modification of Treatment,Re-positioning, Timing of Activity with Medications M4 PT-IP Mobility and Gait Start: 06/12/23 13:00 Freq: NEEDED Status: Active Protocol: Document 06/12/23 16:41 TS (Rec: 06/12/23 17:11 TS [id number]) PT-Bed Mobility Assessment Rolling Type of Rolling Log Rolling Level of Assist Minimal Assistance,1 Person Assistance Supine to Sit Supine to Sit Moderate Assistance,1 Person Assistance Sit to Supine Sit to Supine Moderate Assistance,1 Person Assistance Scooting Scooting to Edge of Bed Moderate Assistance PT-Transfer Assessment Sit to and From Stand Sit to and from Stand Moderate Assistance,Maximum Assistance,1 Person Assistance ,Use of Upper Extremities Equipment Transfer Assistive Device Gait Belt,Front Wheeled Walker Transfers Transfer Destination Bed,Chair,Bedside Commode Transfer Technique Stand Step Pivot Transfer Ability Level of Assist Maximum Assistance,2 Person Assistance Comments Mobility Comments Pt was found resting in bed on 3L of o2, Spo2 87%, pt denied any SOB. Pt recalled 1/3 spinal precautions prior to mobility(twisting). Logroll to L side Deysi with cueing for sequencing. Supine to sit ModA for sitting upright on bed, pt required cues for UE support pushing from bed. Pt attempted to scoot CGA to EOB, could not lift hips, required ModA with use of transfer pad . Sh sat EOB with poor balance , at times requiring ModA to stay upright. She performed sit to stand x1 ModA x1 with second therapist prepared to block knees. Pt's LEs buckling with static standing, balance improves for brief moments when cued for knees straight. She performed stand pivot to chair MaxA x2 w/FWW, pt's LEs continue to buckle. Pt sat in chair for changing of brief due to incontinence. Sit to stand from chair MaxA x1, cues provided for pushing from arms of chair and extending knees to push up into standing . Stand pivot back to bed MaxA x2 for buckling of knees and FWW management. Sit to supine ModA x1 for LEs into bed, cues for provided for sequencing. Pt performed bilateral rolling Deysi for changing of brief again. Pt was left in bed with call light nearby, spouse in room, all needs met. Gait Assessment Factors Limiting Gait Function Factors Limiting Gait Function Decreased Activity Tolerance, Decreased Strength, Incoordination,Poor Balance, Poor Safety Awareness, Respiratory Distress Comments Gait Comments Stand pivot transfers. Stair Climbing Assessment Comments Stair Climbing Comments Unable to assess gait due to poor balance and incoordination noted when performing transfer. PT-Balance Assessment Sitting Balance and Reactions Static Sitting Balance Ability Fair Dynamic Sitting Balance Ability Fair Standing Balance and Reactions Static Standing Balance Ability Poor Dynamic Standing Balance Ability Poor Device Used FWW M5 PT-IP Objective Assessments Start: 06/12/23 13:00 Freq: NEEDED Status: Active Protocol: Document 06/12/23 13:00 AB (Rec: 06/12/23 13:28 AB [id number]) Orientation Orientation/Cognition Level of Alertness Alert Orientation Name,Age,Birthday,Month,Date, Year,Day of Week,Place, Situation Language Function Ability No Deficits Noted Safety Awareness Understands Safety Issues Memory Description No Deficits Noted Gross Range of Motion Upper Extremity ROM Assessment Within Functional Limits Lower Extremity ROM Assessment Within Functional Limits Strength Upper Extremity Strength Assessment Within Functional Limits Lower Extremity Strength Assessment Bilaterally Impaired M6 PT-IP Treatment Start: 06/12/23 13:00 Freq: NEEDED Status: Active Protocol: Document 06/12/23 16:41 TS (Rec: 06/12/23 17:11 TS [id number]) Physical Therapy Treatment Education Education Provided Precautions,Safety M7 PT-IP Assessment and Plan Start: 06/12/23 13:00 Freq: NEEDED Status: Active Protocol: Document 06/12/23 16:41 TS (Rec: 06/12/23 17:11 TS [id number]) PT Summary Assessment and Plan Potential Rehabilitation Potential Fair Summary Impairments Pain,ROM,Strength,Balance, Coordination,Bed Mobility, Transfers,Gait,Activity Tolerance Progress Towards Goals Slow Progress due to Pain,Slow Progress due to Activity Tolerance Assessment Summary Celi is making slow progress with her mobility due to poor strength, pain and activity tolerance. She requires max cueing for all mobility and has some impulsive movements. She recalled 1/3 spinal precautions(no twisting) at start of session and required cueing for her precautions throughout. Her LEs continue to buckle with static standing and when performing transfers requiring MaxA x2 people, one therapist blocking knees if needed. Pt is not safe for ambulation beyond tranfers. She continues to be on 3L of o2, she denied SOB with mobility. PT is recommending SNF rehab at this time. Goals Bed Mobility Goal Independent Transfer Goal Standby Assistance,Front Wheeled Walker Gait Goal Standby Assistance,Front Wheel Walker Gait Distance 50 Other Goals Pt to recall 3/3 lumbar spine surgical precautions in order to improve her post operative outcomes and improve her safety. Days to Meet Goals 5 Frequency of Treatment Frequency Of Treatment Twice a Day Treatment Plan Physical Therapy Treatment Plan Bed Mobility Training,Transfer Training,Gait Training, Therapeutic Exercise,Balance Retraining,Post Op Education, Discharge Planning,Hot or Cold Pack,Neuromuscular Re-ed, Coordination Retraining,Manual Therapy Precautions Lumbar Precautions Log Roll,No Twisting,Limit Bending,Lifting Restriction of 10 lbs,Gait Belt above Incisional Area Other Precautions Fall risk Weight Bearing Status Weight Bearing Status Weight Bear as Tolerated Recommendations To Nursing Amount of Assist Needed PT/OT Assist Only Discharge Recommendations PT Discharge Recommendations SNF Rehab Equipment Needed for Home Before FWW Discharge Transportation Needs at Discharge Private Vehicle,Wheelchair/ Cabulance
[2023-06-12] MEDS: SENNOSIDES 8.6 MG TABLET 17.2 MG PO (20:21)
[2023-06-13] VITALS (7 sets, daily range): BP systolic 142–143; BP diastolic 62–72; PULSE 86–89; RESP 20; TEMP 36.3–36.4; O2SAT 84–90
[2023-06-13] MEDS: hydrOXYzine pamoate 25 MG CAPSULE PO ×2 (05:34→17:31)
--- NOTE | 2023-06-13 06:13 | PC.NURSE ---
Pt had multiple episodes of hyperventilation tonight, O2 has dropped down to low 80s. Unable to calm down despite relaxing techniques, repositioning, and receiving safe pain medications. Pt eventually would settle down and O2 back to 88-90%.
[2023-06-13] MEDS: OXYCODONE IR 10 MG TABLET PO (08:32)
[2023-06-13] MEDS: PANTOPRAZOLE DR 40 MG TABLET PO (08:34)
[2023-06-13] MEDS: GABAPENTIN 400 MG CAPSULE 800 MG PO ×2 (08:34→21:47)
[2023-06-13] MEDS: DOCUSATE 100 MG CAPSULE PO ×2 (08:34→21:47)
[2023-06-13] MEDS: ACETAMINOPHEN 325 MG TABLET 650 MG PO ×2 (08:34→17:31)
[2023-06-13] MEDS: AMLODIPINE 5 MG TABLET 10 MG PO (08:48)
[2023-06-13] MEDS: METOPROLOL ER 50 MG TABLET PO (08:48)
[2023-06-13] MEDS: LOSARTAN 25 MG TABLET PO (08:48)
--- NOTE | 2023-06-13 09:20 | PT.IPTN ---
Current Diagnoses Spinal stenosis, lumbar region with neurogenic claudication (06/11/23) Postlaminectomy syndrome, not elsewhere classified (06/11/23) Surgery Performed Operation Date: 06/11/23 14:45 Actual Procedures p L3-4 TLIF - Javed Vallecillo MD Physical Therapy Treatment Note M2 PT-IP Current Condition Start: 06/12/23 13:00 Freq: NEEDED Status: Active Protocol: Document 06/12/23 13:00 AB (Rec: 06/12/23 13:28 AB [id number]) Physical Therapy Current Condition Current Condition Evaluation Date 06/12/23 Treatment Diagnosis s/p lumbar TLIF L3-L4 Onset Date 06/11/23 M3 PT-IP Subjective Start: 06/12/23 13:00 Freq: NEEDED Status: Active Protocol: Document 06/13/23 09:40 TS (Rec: 06/13/23 09:57 TS [id number]) Subjective Physical Therapy Visit Type Type Treatment Note Visit Start Time 09:20 Visit Stop Time 09:40 Total Visit Minutes 20 Notes Spouse present 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 She was agreeable to PT. M4 PT-IP Mobility and Gait Start: 06/12/23 13:00 Freq: NEEDED Status: Active Protocol: Document 06/13/23 09:40 TS (Rec: 06/13/23 09:57 TS [id number]) PT-Bed Mobility Assessment Rolling Level of Assist Maximal Assistance,1 Person Assistance Supine to Sit Supine to Sit Maximum Assistance,1 Person Assistance Sit to Supine Sit to Supine Moderate Assistance,2 Person Assistance Scooting Scooting to Edge of Bed Maximum Assistance PT-Transfer Assessment Comments Mobility Comments Pt found resting in bed on 5L of o2 at 92%. She recalled 1/3 spinal precautions(no bending ) prior to mobility. Logroll MaxA with max cues, pt having some difficulty following cues for handrail assist. Supine to sit MaxA x1, cues were provided for pushing through bed to upright trunk. Pt sat EOB maxA, cues were provided to support self with UEs, pt retroleans when not provided support. Sit to supine back to bed ModA x2 with help from spouse, cues were given for logroll. Pt was left back in bed with spouse in room call light nearby and RN was notified. Gait Assessment Comments Gait Comments Not this session Stair Climbing Assessment Comments Stair Climbing Comments not this session. PT-Balance Assessment Sitting Balance and Reactions Static Sitting Balance Ability Poor Dynamic Sitting Balance Ability Poor M5 PT-IP Objective Assessments Start: 06/12/23 13:00 Freq: NEEDED Status: Active Protocol: Document 06/12/23 13:00 AB (Rec: 06/12/23 13:28 AB [id number]) Orientation Orientation/Cognition Level of Alertness Alert Orientation Name,Age,Birthday,Month,Date, Year,Day of Week,Place, Situation Language Function Ability No Deficits Noted Safety Awareness Understands Safety Issues Memory Description No Deficits Noted Gross Range of Motion Upper Extremity ROM Assessment Within Functional Limits Lower Extremity ROM Assessment Within Functional Limits Strength Upper Extremity Strength Assessment Within Functional Limits Lower Extremity Strength Assessment Bilaterally Impaired M6 PT-IP Treatment Start: 06/12/23 13:00 Freq: NEEDED Status: Active Protocol: Document 06/13/23 09:40 TS (Rec: 06/13/23 09:57 TS [id number]) Physical Therapy Treatment Education Education Provided Precautions,Safety M7 PT-IP Assessment and Plan Start: 06/12/23 13:00 Freq: NEEDED Status: Active Protocol: Document 06/13/23 09:40 TS (Rec: 06/13/23 09:57 TS [id number]) PT Summary Assessment and Plan Potential Rehabilitation Potential Fair Summary Impairments Pain,ROM,Strength,Balance, Coordination,Bed Mobility, Transfers,Gait,Activity Tolerance Progress Towards Goals Slow Progress due to Pain,Slow Progress due to Activity Tolerance Assessment Summary Celi continues to make slow progress with her mobility. She is lethargic this morning and has difficulty staying awake during PT session, perhaps due to pain medication . She did agree to try and sit up EOB. She required MaxA for logroll and for supine to sit . She required MaxA to sit up EOB and had difficulty following instructions for use of handrails to support her. She required max cues through out session. She continues to recall 1/3 spinal precautions( no bending). PT is recommending SNF rehab to progress bed mobility, transfers and gait. Per RN pt is refusing to go to SNF and spouse wants to take care of her. Goals Bed Mobility Goal Independent Transfer Goal Standby Assistance,Front Wheeled Walker Gait Goal Standby Assistance,Front Wheel Walker Gait Distance 50 Other Goals Pt to recall 3/3 lumbar spine surgical precautions in order to improve her post operative outcomes and improve her safety. Days to Meet Goals 5 Frequency of Treatment Frequency Of Treatment Twice a Day Treatment Plan Physical Therapy Treatment Plan Bed Mobility Training,Transfer Training,Gait Training, Therapeutic Exercise,Balance Retraining,Post Op Education, Discharge Planning,Hot or Cold Pack,Neuromuscular Re-ed, Coordination Retraining,Manual Therapy Precautions Lumbar Precautions Log Roll,No Twisting,Limit Bending,Lifting Restriction of 10 lbs,Gait Belt above Incisional Area Other Precautions Fall risk Weight Bearing Status Weight Bearing Status Weight Bear as Tolerated Recommendations To Nursing Amount of Assist Needed PT/OT Assist Only Discharge Recommendations PT Discharge Recommendations SNF Rehab Equipment Needed for Home Before FWW Discharge Transportation Needs at Discharge Wheelchair/Cabulance,Stretcher /Ambulance
--- NOTE | 2023-06-13 11:49 | CM.DPC ---
Addendum entered by Julia Paige R.N. 06/13/23 14:43: Was informed by O.T. via message that patient may need BLS transport, was having difficulty working with P.T. Initiated BLS form, but will need to verify tomorrow, and update patient and or spouse of potential expense, if this is the only mode appropriate for transport. Updated PAC, Roseanne James, earlier that [facility] has accepted, but she is unsure if patient will be ready tomorrow, is currently on 5 liters. Will continue to update Mikki, and hold BLS form for now. Original Note: DCP Cont: Patient is weak, did have some pain medication. Called over at [facility] and spoke with Carine. Asked her if she could accept tomorrow. Stated, she most likely can't take until Sunday, since they had to push back one of their discharges. Let her know that this [facility] will have to look for another facility, most likely will be ready for discharge tomorrow. Met with patient's spouse, Neo, for patient is sleeping, had some pain medication. Has not yet been able to work with P.T. He confirmed that she will need to go to a skilled facility, can't care for her on his own now. Spoke to Mikki at [facility] , she did get referral, can accept for tomorrow. Will complete PASSR, and will see how she does with P.T, to ensure that she can do wheel-chair transfer. Do not yet have a time set up as of yet. P: DCP to continue to follow. Plan is [facility] tomorrow. Confirmed with spouse, did not want [facility] or [facility]. [facility] was updated, since they could not accept until Sunday. Julia Paige, RN/Insurance Assistant
--- NOTE | 2023-06-13 13:49 | PM.PNPO.1 ---
Subjective Subjective Date Patient Seen: 06/13/23 Interval history: Patient is very sleepy, resting in bed this morning with specimen bedside. Once awake, patient states that she feels better today than yesterday. She states her pain is better with medication. She reports that physical therapy has not gone very well and the pain is a barrier. She denies shortness of breath despite being on 5 L of oxygen, O2 sat in the upper 80s. Denies chest pain, nausea, vomiting. Exam Vital Signs (past 8 hours): - 06/13/23 06:00 06/13/23 08:47 06/13/23 08:48 Temperature 97.4 F L Pulse Rate 89 89 Respiratory Rate 20 Blood Pressure 143/62 H 143/72 H Pulse Oximetry 90 L 90 L Oxygen Delivery Method Nasal Cannula Oxygen Flow Rate 3 5 06/13/23 08:48 06/13/23 08:46 Temperature Pulse Rate 89 Respiratory Rate Blood Pressure 143/72 H Pulse Oximetry 88 L Oxygen Delivery Method Nasal Cannula Oxygen Flow Rate 3 Oxygen Delivery Method Nasal Cannula Oxygen Flow Rate 5 Narrative Exam Narrative: 68-year-old female. Slightly increased respiratory effort, O2 saturation high 80s to low 90s on 5 L. Somnolent, not easily arousable, groggy once awake. Able to flex and extend bilateral distal extremities. Sensation intact to bilateral lower extremities. Bilateral calves soft, compressible, nontender with no palpable cords or masses. PFSH Medical History Brain aneurysm Chronic kidney disease COPD (chronic obstructive pulmonary disease) Duodenal ulcer perforation Erythrocytosis History of common carotid artery stent placement Hyperlipidemia Hypertension Primary hyperparathyroidism Smoker Surgical History History of appendectomy History of surgical procedure History of surgical procedure Hx of tonsillectomy Social History household members: spouse Smoking Status: Current every day smoker alcohol intake: current substance use type: does not use Assessment & Plan Post-op Postoperative Procedures: Procedures Operation Date: 06/11/23 14:45 Actual Procedure Side Surgeon p L3-4 TLIF Javed Vallecillo MD Postoperative day: 2 Postoperative status narrative: Patient is progressing slowly following 1 level TLIF, postop day 2. Pain medications likely causing increased drowsiness. Postoperative plan narrative: Plan to work with physical therapy today. I have added the option of oxycodone 5 mg instead of 10 mg hoping this will both control pain and decreased drowsiness. Patient has COPD, baseline 2 L of oxygen. We will see if decreasing narcotic medication use improves patient's respiratory status. Plan for discharge to long-term facility tomorrow to continue rehabilitation, pending respiratory status. Quality VTE Deep Vein Thrombosis/Pulmonary Embolism Present on Admission: No
--- NOTE | 2023-06-13 14:14 | OT.IP.EVAL ---
Addendum entered and electronically signed by Eva Wood OT 06/13/23 14:40: edit Original Note: Current Diagnoses Spinal stenosis, lumbar region with neurogenic claudication (06/11/23) Postlaminectomy syndrome, not elsewhere classified (06/11/23) Surgery Performed Operation Date: 06/11/23 14:45 Actual Procedures p L3-4 TLIF - Javed Vallecillo MD Past Medical History Brain aneurysm Chronic kidney disease COPD (chronic obstructive pulmonary disease) Duodenal ulcer perforation Erythrocytosis History of common carotid artery stent placement Hyperlipidemia Hypertension Primary hyperparathyroidism Smoker Surgical History (Last Reviewed 06/13/23 @ 13:53 by Roseanne James PA-C) History of appendectomy History of surgical procedure History of surgical procedure Hx of tonsillectomy Occupational Therapy Inpatient Evaluation/Re-Eval M1 PT/OT-IP Prior Functional Status Start: 06/12/23 13:21 Freq: NEEDED Status: Active Protocol: Document 06/12/23 11:25 [facility] (Rec: 06/12/23 13:55 [facility] [id number]) Medical Review Prior Functional Status Medical History Reviewed Yes Communication Independent Mobility and Gait Pt states uses a 4ww at home at all times. Activities of Daily Living and IADL's Pt wears slip on shoes and has had pain for ADL and needs and her does the IADL needs. Prior Functional Level (Other details) Pt has Social History Household Members spouse Living Arrangements House Number of Floors (Floors) One Floor Number of Stairs To Enter/Railing? Pt just has a threshold to get through the front door and one inch step to get into the shower. Home Environment Standard Height Toilet,Walk in Shower Home Equipment Four Wheel Walker,Shower Seat without Backrest,Hand Held Shower,Grab Bars Near Toilet, Grab Bars In Shower Additional Social History Comment Pt has a suction cup grab bar for the shower. M2 OT-IP Current Condition Start: 06/12/23 13:21 Freq: Status: Active Protocol: Document 06/12/23 11:25 [facility] (Rec: 06/12/23 13:55 [facility] [id number]) Occupational Therapy Current Condition Current Condition Evaluation Date 06/12/23 Treatment Diagnosis S/P L3-4 TLIF Diagnosis Onset Date 06/11/23 Post Operative Precautions Lumbar Precautions Log Roll,No Twisting,Limit Bending,Lifting Restriction of 10 lbs,Gait Belt above Incisional Area M3 OT- IP Subjective and Pain Start: 06/12/23 13:21 Freq: Status: Active Protocol: Document 06/13/23 14:10 [facility] (Rec: 06/13/23 14:38 [facility] [id number]) OT- Subjective Occupational Therapy Visit Type Type Treatment Note Visit Start Time 14:10 Visit Stop Time 14:24 Total Visit Minutes 14 Occupational Therapy Visit Comments Patient Comments Pt very tired and groggy. Patient/Caregiver Goals Pt's agreeing pt to go to skilled rehab. OT Pain Assessment Pain When Pain Assessed At Rest Pain Present Pain Present Pain Reported Location Back Intensity 8 Scale Used Numeric (0 - 10) M6 OT- IP Functional Cognition Start: 06/12/23 13:21 Freq: Status: Active Protocol: Document 06/13/23 14:10 [facility] (Rec: 06/13/23 14:38 [facility] [id number]) Cognitive Factors Limiting Selfcare Function Cognitive Ability Level of Alertness Drowsy Patient Orientation Name,Place,Situation Attention Span Ability Capable of Focused Attention, Unable to Sustain Attention Cognitive Comments Cognitive Assessment Comments Pt very drowsy and in lots of pain. Pt not able to recall all of her back precautions even after multiple educations , as pt falling asleep in addition her O2 % on 5L at 85 %. Able to work with pt on spirometer to try to increased O2 numbers, pt having difficulty to follow directions at this time as too sleepy and groggy. M7 OT- IP Mobility and Balance Start: 06/12/23 13:21 Freq: Status: Active Protocol: Document 06/13/23 14:10 [facility] (Rec: 06/13/23 14:38 [facility] [id number]) OT- Bed Mobility Assessment Rolling Level of Assistance Maximum Assistance OT-Transfer Assessment Comments Mobility Comments Pt needing MAX AX 1 and use of green pad to assist to roll at this time. M8 OT- IP Objective Assessments Start: 06/12/23 13:21 Freq: Status: Active Protocol: Document 06/12/23 11:25 [facility] (Rec: 06/12/23 13:55 [facility] [id number]) OT Gross Range of Motion Upper Extremity Range of Motion Assessment Within Functional Limits OT Strength Upper Extremity Strength Assessment Within Functional Limits M9 OT- IP Assessment and Plan Start: 06/12/23 13:21 Freq: Status: Active Protocol: Document 06/13/23 14:10 [facility] (Rec: 06/13/23 14:38 [facility] [id number]) OT Summary Assessment and Plan Potential Rehabilitation Potential Good Analytic Complexity at Evaluation Low Summary OT Impairments Pain,Strength,Balance, Sensation,Functional Mobility, Grooming,Dressing,Toileting, Bathing,Toilet Transfers, Shower Transfers,Activity Tolerance Progress Towards Goals Slow Progress due to Pain,Slow Progress due to Medical Issues,Slow Progress due to Activity Tolerance Assessment Summary Pt very groggy and having lots of pain and difficulty to stay awake at this time, therefore just able to work on going over spirometer with the pt and back precautions. At this time if pt to be discharge would be best to go by stretcher. Goals Self-Feeding Goal Independent Grooming Goal Independent Dressing Goal Independent Toileting Goal Independent Bathing Goal Independent Toilet Transfer Goal Independent Shower Transfer Goal Independent Patient/Caregiver Education Goal Demonstrate Post-Op Precautions,Caregiver Independent Assisting Patient Days to Meet Goals 25 Frequency of Treatment Frequency Of Treatment Once a Day Treatment Plan OT Treatment Plan ADL Training,Functional Cognition Training,Functional Mobility,Patient/Family Education,Discharge Planning Discharge Recommendations OT Discharge Recommendations SNF Rehab Transportation Needs at Discharge Stretcher/Ambulance
--- NOTE | 2023-06-13 14:28 | PT-IP ANOTE ---
Pt is not appropriate for PT at this time. She is having high amounts of pain currently and is very tired. Will check back in with pt tomorrow.
[2023-06-13] MEDS: ALBUTEROL 2.5 MG/3 ML NEB (ADULT) INH ×2 (14:46→23:40)
[2023-06-13] MEDS: OXYCODONE IR 5 MG TABLET PO (17:31)
[2023-06-13] MEDS: ATORVASTATIN 20 MG TABLET 80 MG PO (21:46)
[2023-06-13] MEDS: SENNOSIDES 8.6 MG TABLET 17.2 MG PO (21:47)
[2023-06-13] MEDS: PRAMIPEXOLE 0.25 MG TABLET PO (21:47)
[2023-06-14] VITALS (12 sets, daily range): BP systolic 129–142; BP diastolic 62–65; PULSE 88–91; RESP 17–20; TEMP 36.3–36.6; O2SAT 80–92
[2023-06-14] MEDS: hydrOXYzine pamoate 25 MG CAPSULE PO (00:40)
[2023-06-14] MEDS: OXYCODONE IR 5 MG TABLET PO ×2 (00:40→15:18)
[2023-06-14] MEDS: OXYCODONE IR 10 MG TABLET PO (06:20)
[2023-06-14] MEDS: ACETAMINOPHEN 325 MG TABLET 650 MG PO (06:20)
[2023-06-14] MEDS: ALBUTEROL 2.5 MG/3 ML NEB (ADULT) INH ×2 (07:03→17:15)
[2023-06-14] MEDS: GABAPENTIN 400 MG CAPSULE 800 MG PO ×2 (08:55→20:30)
[2023-06-14] MEDS: PANTOPRAZOLE DR 40 MG TABLET PO (08:55)
[2023-06-14] MEDS: METOPROLOL ER 50 MG TABLET PO (08:55)
[2023-06-14] MEDS: AMLODIPINE 5 MG TABLET 10 MG PO (08:55)
[2023-06-14] MEDS: DOCUSATE 100 MG CAPSULE PO ×2 (08:55→20:31)
[2023-06-14] MEDS: LOSARTAN 25 MG TABLET PO (08:56)
--- NOTE | 2023-06-14 09:01 | CM.DPC ---
Addendum entered by DARWIN Patel 06/14/23 11:53: ADD: Per Ortho PA, pt's sats not stable for d/c to SNF yet today as she was requiring 12LO2 during ambulation with PT and will adjust her pain meds and try Tramadol today to see if pt tolerates this better and can be more alert with stable oxygen levels. Plan is likely d/c to SNF tomorrow Sun. CC Basilia updated [facility] and they cancelled transport for today and scheduled for 1030 tomorrow 06/15. BF Original Note: DCP SNF Planning: Per Ortho PA, wanting to confirm pt's oxygen levels are stable and will have RT and RN monitor pt this morning and if stable will plan on discharge to SNF later today. ORA met bedside with pt and RN and discussed above and pt remains in agreement with d/c to [facility] when stable and discussed option of BLS vs cabulance w/c van and pt states she was up sitting in the chair earlier and feels she can manage a w/c van at discharge. Pt appears more alert today with the adjustments of the pain meds. Spouse will be bedside this morning. ORA updated Mikki at [facility] and requested reservation of cabulance later this afternoon but she checked cabulance and they only have 1200 available. Plan: ORA to follow closely for oxygen sats this morning to confirm stable for d/c to [facility] around lunchtime. DARWIN Patel
--- NOTE | 2023-06-14 09:10 | OT.IP.TRT ---
Current Diagnoses Spinal stenosis, lumbar region with neurogenic claudication (06/11/23) Postlaminectomy syndrome, not elsewhere classified (06/11/23) Surgery Performed Operation Date: 06/11/23 14:45 Actual Procedures p L3-4 TLIF - Javed Vallecillo MD Occupational Therapy Treatment Note M2 OT-IP Current Condition Start: 06/12/23 13:21 Freq: Status: Active Protocol: Document 06/12/23 11:25 [facility] (Rec: 06/12/23 13:55 [facility] [id number]) Occupational Therapy Current Condition Current Condition Evaluation Date 06/12/23 Treatment Diagnosis S/P L3-4 TLIF Diagnosis Onset Date 06/11/23 Post Operative Precautions Lumbar Precautions Log Roll,No Twisting,Limit Bending,Lifting Restriction of 10 lbs,Gait Belt above Incisional Area M3 OT- IP Subjective and Pain Start: 06/12/23 13:21 Freq: Status: Active Protocol: Document 06/14/23 09:00 [facility] (Rec: 06/14/23 11:13 [facility] [id number]) OT- Subjective Occupational Therapy Visit Type Visit Start Time 09:00 Visit Stop Time 09:39 Total Visit Minutes 10 Notes Co-Txtt with 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 Occupational Therapy Visit Comments Patient Comments Pt admit that she has fallen and that her RLE buckled on the 7th of this month and not sure if she mentioned it to the surgeon prior to her back surgery. Patient/Caregiver Goals TO get better. OT Pain Assessment Pain When Pain Assessed At Rest Pain Present Pain Present Pain Reported Location Back Intensity 8 Scale Used Numeric (0 - 10) M4 OT- IP ADL's Start: 06/12/23 13:21 Freq: Status: Active Protocol: Document 06/14/23 09:00 [facility] (Rec: 06/14/23 11:13 [facility] [id number]) OT ZER-Vnlg-Dhrndlr General Evaluation Self-Feeding Ability Standby Assistance OT ADL-Grooming General Evaluation Grooming Ability Minimal Assistance Areas Needing Assistance Combing/Brushing Hair Comments OT Grooming Comments NINI to help get on the tangles of her hair while seated. OT ADL-Oral Care General Eval Oral Care Ability Independent OT ADL-Dressing General Eval Lower Body Dressing Ability Total Assistance Comments OT Dressing Comments MAX AX 2 to stand to FWW and having to block her right knee from buckling while nursing aid able to clean and change out her brief. OT ADL-Toileting General Evaluation Toileting Ability Total Assistance Areas Needing Assistance Perform Perineal Hygiene M5 OT- IP IADL's Start: 06/12/23 13:21 Freq: Status: Active Protocol: Document 06/12/23 11:25 [facility] (Rec: 06/12/23 13:55 [facility] [id number]) OT-Instrumental Activities of Daily Living Deficits IADL Deficits Identified Deficits Home Safety Awareness Awareness of Need for Assistance at Home Decreased Awareness Home Safety Comments Pt is forgetful that she just had back surgery and assuming that she is able to do it on her own or that he is capable to assist. At this time would be best for her to assist with her needs as she is forgetful. Meal Preparation Meal Preparation Caregiver Provides Assist Dumbwaiter Operator Dumbwaiter Operator Caregiver Provides Assist M6 OT- IP Functional Cognition Start: 06/12/23 13:21 Freq: Status: Active Protocol: Document 06/14/23 09:00 [facility] (Rec: 06/14/23 11:13 [facility] [id number]) Cognitive Factors Limiting Selfcare Function Cognitive Ability Level of Alertness Alert,Drowsy Patient Orientation Name,Place,Situation Attention Span Ability Capable of Focused Attention, Capable of Sustained Attention Cognitive Comments Cognitive Assessment Comments Pt more alert and able to follow commands better for ADL and mobility needs. M7 OT- IP Mobility and Balance Start: 06/12/23 13:21 Freq: Status: Active Protocol: Document 06/14/23 09:00 [facility] (Rec: 06/14/23 11:13 [facility] [id number]) OT- Bed Mobility Assessment Supine to Sit Supine to Sit Assist Maximum Assistance,2 Person Assistance OT-Transfer Assessment Sit to and From Stand Sit to and from Stand Maximum Assistance,2 Person Assistance Transfers Transfer Ability Maximum Assistance,2 Person Assistance Technique Transfer Destination Bed,Chair Transfer Technique Stand Step Pivot Devices Transfer Assistive Devices Gait Belt,Front Wheeled Walker Comments Mobility Comments MAXA X 2 to stand , pt tends to hyperextend her RLE and also needing therapist to block her knee when trying to use the FWW to transfer to the recliner. Pt also needing assist to guide the FWW. OT- Balance Assessment Sitting Balance and Reactions Static Sitting Balance Ability Fair Dynamic Sitting Balance Ability Poor Standing Balance and Reactions Static Standing Balance Ability Poor Dynamic Standing Balance Ability Poor M8 OT- IP Objective Assessments Start: 06/12/23 13:21 Freq: Status: Active Protocol: Document 06/12/23 11:25 [facility] (Rec: 06/12/23 13:55 [facility] [id number]) OT Gross Range of Motion Upper Extremity Range of Motion Assessment Within Functional Limits OT Strength Upper Extremity Strength Assessment Within Functional Limits M9 OT- IP Assessment and Plan Start: 06/12/23 13:21 Freq: Status: Active Protocol: Document 06/14/23 09:00 [facility] (Rec: 06/14/23 11:13 [facility] [id number]) OT Summary Assessment and Plan Potential Rehabilitation Potential Good Analytic Complexity at Evaluation Low Summary OT Impairments Pain,Strength,Balance, Sensation,Functional Mobility, Grooming,Dressing,Toileting, Bathing,Toilet Transfers, Shower Transfers,Activity Tolerance Progress Towards Goals Progressing Toward Goals,Slow Progress due to Pain,Slow Progress due to Medical Issues Assessment Summary Pt able to tolerate getting up to the chair today as more alert. Pt still having difficulty with weakness RLE> LLE and her legs buckle and needing assist to block her knees from buckling. Pt looking to go to skilled rehab . Pt will need to ihsan to and from the for safety otherwise will have skilled therapists to be able to assist her with the transfer to the . . Otherwise recommend use of a stretcher. Goals Self-Feeding Goal Independent Grooming Goal Independent Dressing Goal Minimal Assistance Toileting Goal Standby Assistance Bathing Goal Minimal Assistance Toilet Transfer Goal Independent Shower Transfer Goal Minimal Assistance Days to Meet Goals 25 Frequency of Treatment Frequency Of Treatment Once a Day Treatment Plan OT Treatment Plan ADL Training,Functional Cognition Training,Functional Mobility,Patient/Family Education,Discharge Planning Discharge Recommendations OT Discharge Recommendations SNF Rehab Transportation Needs at Discharge Wheelchair/Cabulance
--- NOTE | 2023-06-14 09:10 | PT.IPTN ---
Current Diagnoses Spinal stenosis, lumbar region with neurogenic claudication (06/11/23) Postlaminectomy syndrome, not elsewhere classified (06/11/23) Surgery Performed Operation Date: 06/11/23 14:45 Actual Procedures p L3-4 TLIF - Javed Vallecillo MD Physical Therapy Treatment Note M2 PT-IP Current Condition Start: 06/12/23 13:00 Freq: NEEDED Status: Active Protocol: Document 06/12/23 13:00 AB (Rec: 06/12/23 13:28 AB [id number]) Physical Therapy Current Condition Current Condition Evaluation Date 06/12/23 Treatment Diagnosis s/p lumbar TLIF L3-L4 Onset Date 06/11/23 M3 PT-IP Subjective Start: 06/12/23 13:00 Freq: NEEDED Status: Active Protocol: Document 06/14/23 09:41 TS (Rec: 06/14/23 10:00 TS [id number]) Subjective Physical Therapy Visit Type Type Treatment Note Visit Start Time 09:10 Visit Stop Time 09:39 Total Visit Minutes 29 Notes Split treat with OT Number of SYSTEMS CHECKOUT MECHANIC Visits 3 Physical Therapy Visit Comments Patient Comments Pt found resting in bed, is more alert this morning than yesterday, would like to mobilize OOB. She reports having incontinence after the surgery and she was not having this issue prior to surgery. Pt was agreeable to PT. Therapy Pain Assessment Pain When Pain Assessed At Rest Pain Present Pain Present Pain Reported M4 PT-IP Mobility and Gait Start: 06/12/23 13:00 Freq: NEEDED Status: Active Protocol: Document 06/14/23 09:41 TS (Rec: 06/14/23 10:00 TS [id number]) PT-Bed Mobility Assessment Rolling Type of Rolling Log Rolling Level of Assist Moderate Assistance,1 Person Assistance Supine to Sit Supine to Sit Maximum Assistance,2 Person Assistance Scooting Scooting to Edge of Bed Moderate Assistance PT-Transfer Assessment Sit to and From Stand Sit to and from Stand Maximum Assistance,2 Person Assistance,Use of Upper Extremities Equipment Transfer Assistive Device Gait Belt,Front Wheeled Walker Comments Mobility Comments Pt found resting on 12L of o2, difficult to get accurate Spo2 reading, was between mid 70's to high 80's. She performed logroll ModA with cues for shoulders and hip moving at same time. Supine to sit MaxA x2, pt tends to stop in the middle of sitting up due to pain, requires cues for handplacement on bed for sitting up. BP taken in sitting, was unremarkable, pt sat for dressing change from RN. She performed sit to stand x3 from bed MaxA x2, pt's knees buckle and tends to hyper extend R side>L. Pt is incontinent when she stands up , reports this is new after the surgery. She performed stand pivot to chair MaxA x2, one therapist blocking buckling of knees as she transfers. Pt stood from chair for changing of brief MaxA x2 w/FWW, pt requires cues for weight forward and pushing from arms of the chair. Pt was left in chair with HOSPITALITY RECRUITER tending to needs. Gait Assessment Comments Gait Comments Stand pivot. See mobility comments PT-Balance Assessment Sitting Balance and Reactions Static Sitting Balance Ability Fair Dynamic Sitting Balance Ability Poor Standing Balance and Reactions Static Standing Balance Ability Poor Dynamic Standing Balance Ability Poor Device Used FWW M5 PT-IP Objective Assessments Start: 06/12/23 13:00 Freq: NEEDED Status: Active Protocol: Document 06/12/23 13:00 AB (Rec: 06/12/23 13:28 AB [id number]) Orientation Orientation/Cognition Level of Alertness Alert Orientation Name,Age,Birthday,Month,Date, Year,Day of Week,Place, Situation Language Function Ability No Deficits Noted Safety Awareness Understands Safety Issues Memory Description No Deficits Noted Gross Range of Motion Upper Extremity ROM Assessment Within Functional Limits Lower Extremity ROM Assessment Within Functional Limits Strength Upper Extremity Strength Assessment Within Functional Limits Lower Extremity Strength Assessment Bilaterally Impaired M6 PT-IP Treatment Start: 06/12/23 13:00 Freq: NEEDED Status: Active Protocol: Document 06/14/23 09:41 TS (Rec: 06/14/23 10:00 [id number]) Physical Therapy Treatment Education Education Provided Precautions,Safety M7 PT-IP Assessment and Plan Start: 06/12/23 13:00 Freq: NEEDED Status: Active Protocol: Document 06/14/23 09:41 TS (Rec: 06/14/23 10:00 TS [id number]) PT Summary Assessment and Plan Potential Rehabilitation Potential Fair Summary Impairments Pain,ROM,Strength,Balance, Coordination,Bed Mobility, Transfers,Gait,Activity Tolerance Progress Towards Goals Slow Progress due to Pain,Slow Progress due to Medical Issues,Slow Progress due to Activity Tolerance Assessment Summary Celi continues to make slow progress with her mobility. She is now on ~12L of o2, it is difficult to get accurate reading. Spo2 ranges from mid 70's to high 80's. She continues to deny any SOB with mobility. She requires max cues for all mobility and dmeonstrates poor carryover of bed mobility techniques. She is requiring MaxA x2 for sitting up to EOB, can support herself in sitting at times SBA but can require Deysi. She performed sit to stand x4 MaxA x2 and stand pivot transfer MaxA x2. Her LEs continue to buckle and she tends to hyper extend on R side at times. She is very unsteady and has poor FWW management. PT continues to recommend SNF rehab at this time to progress bed mobility , transfers and gait. Goals Bed Mobility Goal Independent Transfer Goal Standby Assistance,Front Wheeled Walker Gait Goal Standby Assistance,Front Wheel Walker Gait Distance 50 Other Goals Pt to recall 3/3 lumbar spine surgical precautions in order to improve her post operative outcomes and improve her safety. Days to Meet Goals 5 Frequency of Treatment Frequency Of Treatment Twice a Day Treatment Plan Physical Therapy Treatment Plan Bed Mobility Training,Transfer Training,Gait Training, Therapeutic Exercise,Balance Retraining,Post Op Education, Discharge Planning,Hot or Cold Pack,Neuromuscular Re-ed, Coordination Retraining,Manual Therapy Precautions Lumbar Precautions Log Roll,No Twisting,Limit Bending,Lifting Restriction of 10 lbs,Gait Belt above Incisional Area Other Precautions Fall risk Weight Bearing Status Weight Bearing Status Weight Bear as Tolerated Recommendations To Nursing Amount of Assist Needed PT/OT Assist Only Discharge Recommendations PT Discharge Recommendations SNF Rehab Equipment Needed for Home Before FWW Discharge Transportation Needs at Discharge Wheelchair/Cabulance,Stretcher /Ambulance
--- NOTE | 2023-06-14 10:59 | PM.PNPO.1 ---
Subjective Subjective Date Patient Seen: 06/14/23 Time Patient Seen: 07:45 Interval history: Pain has been moderate to severe at times. Denies fever or chills. No shortness of breath or chest pain. Exam Vital Signs (past 8 hours): - 06/14/23 07:03 06/14/23 07:00 06/14/23 08:55 Temperature 97.8 F Pulse Rate 89 88 Respiratory Rate 18 17 Blood Pressure 133/62 142/65 H Pulse Oximetry 80 L 88 L Oxygen Delivery Method Oximask Oxygen Flow Rate 7 10 06/14/23 08:56 Temperature Pulse Rate Respiratory Rate Blood Pressure 142/65 H Pulse Oximetry Oxygen Delivery Method Oxygen Flow Rate Oxygen Delivery Method Oximask Oxygen Flow Rate 7 Narrative Exam Narrative: 68-year-old female resting comfortably in bed in no apparent distress. Motor functions intact bilateral lower extremities. Sensation grossly intact to light touch bilateral lower extremities. Const General: cooperative and comfortable Nutritional Appearance: well nourished Orientation: alert Resp Effort & Inspection: normal respiratory effort and able to speak in complete sentences PFSH Medical History Brain aneurysm Chronic kidney disease COPD (chronic obstructive pulmonary disease) Duodenal ulcer perforation Erythrocytosis History of common carotid artery stent placement Hyperlipidemia Hypertension Primary hyperparathyroidism Smoker Surgical History History of appendectomy History of surgical procedure History of surgical procedure Hx of tonsillectomy Social History household members: spouse Smoking Status: Current every day smoker alcohol intake: current substance use type: does not use Assessment & Plan Post-op Postoperative Procedures: Procedures Operation Date: 06/11/23 14:45 Actual Procedure Side Surgeon p L3-4 TLIF Javed Vallecillo MD Postoperative day: 3 Postoperative status: doing well Postoperative status narrative: Stable, hospitalist consult June 12, 2023 for acute on chronic respiratory failure, secondary to chronic COPD without exacerbation, with hypoxia secondary to medication, resolved. Recommend try to limit opiates as much as possible. Postoperative plan narrative: Mobilize with physical therapy, limit bending, twisting, lifting Multimodal pain management. Discontinue oxycodone 10 mg and Vistaril. We will add tramadol as needed for breakthrough pain. Patient was given 10 mg of oxycodone early this morning O2 sat has dropped to 80% and has required O2 per nasal cannula. Disposition we will continue to reduce the amount of narcotics and monitor her O2 saturation. Hopefully she will be stable to discharge to senior care facility tomorrow. Quality VTE Deep Vein Thrombosis/Pulmonary Embolism Present on Admission: No
[2023-06-14] MEDS: TRAMADOL 50 MG TABLET PO ×2 (12:35→20:31)
--- NOTE | 2023-06-14 15:15 | PT.IPTN ---
Current Diagnoses Spinal stenosis, lumbar region with neurogenic claudication (06/11/23) Postlaminectomy syndrome, not elsewhere classified (06/11/23) Surgery Performed Operation Date: 06/11/23 14:45 Actual Procedures p L3-4 TLIF - Javed Vallecillo MD Physical Therapy Treatment Note M2 PT-IP Current Condition Start: 06/12/23 13:00 Freq: NEEDED Status: Active Protocol: Document 06/12/23 13:00 AB (Rec: 06/12/23 13:28 AB [id number]) Physical Therapy Current Condition Current Condition Evaluation Date 06/12/23 Treatment Diagnosis s/p lumbar TLIF L3-L4 Onset Date 06/11/23 M3 PT-IP Subjective Start: 06/12/23 13:00 Freq: NEEDED Status: Active Protocol: Document 06/14/23 15:37 TS (Rec: 06/14/23 15:45 TS [id number]) Subjective Physical Therapy Visit Type Type Treatment Note Visit Start Time 15:15 Visit Stop Time 15:37 Total Visit Minutes 22 Number of MAIL DELIVERY SUPERVISOR Visits 4 Physical Therapy Visit Comments Patient Comments Pt found resting in chair, agreeable to transfer to bed. Therapy Pain Assessment Pain When Pain Assessed At Rest Pain Present Pain Present Pain Reported Location Back Intensity 9 Scale Used Numeric (0 - 10) Description Aching,Acute,Tender,With Movement Pain Behaviors Calling Out,Facial Grimacing, Moaning,Restlessness,Wincing Pain Management Techniques Apply Cold,Modification of Treatment,Re-positioning, Timing of Activity with Medications M4 PT-IP Mobility and Gait Start: 06/12/23 13:00 Freq: NEEDED Status: Active Protocol: Document 06/14/23 15:37 TS (Rec: 06/14/23 15:45 TS [id number]) PT-Bed Mobility Assessment Rolling Type of Rolling Roll to Left Level of Assist Minimal Assistance,1 Person Assistance PT-Transfer Assessment Sit to and From Stand Sit to and from Stand Maximum Assistance,2 Person Assistance,Use of Upper Extremities Equipment Transfer Assistive Device Gait Belt,Front Wheeled Walker Comments Mobility Comments Pt found resting in chair, remains on o2 of 12L at 87%, difficult to get accurate Spo2 on pt. Pt scooted in chair ModA with use of transfer pad, pt has difficulty following cues for scooting forward. Attempted sit to stand x2 MaxA , pt could not get lift from chair. She was hoyered into bed x2pa with MANAGER CLINICAL INFORMATICS. Pt was left in bed with MANAGER CLINICAL INFORMATICS attending to needs. Gait Assessment Comments Gait Comments unable at this time PT-Balance Assessment Sitting Balance and Reactions Static Sitting Balance Ability Fair Dynamic Sitting Balance Ability Poor M5 PT-IP Objective Assessments Start: 06/12/23 13:00 Freq: NEEDED Status: Active Protocol: Document 06/12/23 13:00 AB (Rec: 06/12/23 13:28 AB [id number]) Orientation Orientation/Cognition Level of Alertness Alert Orientation Name,Age,Birthday,Month,Date, Year,Day of Week,Place, Situation Language Function Ability No Deficits Noted Safety Awareness Understands Safety Issues Memory Description No Deficits Noted Gross Range of Motion Upper Extremity ROM Assessment Within Functional Limits Lower Extremity ROM Assessment Within Functional Limits Strength Upper Extremity Strength Assessment Within Functional Limits Lower Extremity Strength Assessment Bilaterally Impaired M6 PT-IP Treatment Start: 06/12/23 13:00 Freq: NEEDED Status: Active Protocol: Document 06/14/23 15:37 TS (Rec: 06/14/23 15:45 TS [id number]) Physical Therapy Treatment Education Education Provided Precautions,Safety M7 PT-IP Assessment and Plan Start: 06/12/23 13:00 Freq: NEEDED Status: Active Protocol: Document 06/14/23 15:37 TS (Rec: 06/14/23 15:45 TS [id number]) PT Summary Assessment and Plan Potential Rehabilitation Potential Fair Summary Impairments Pain,ROM,Strength,Balance, Coordination,Bed Mobility, Transfers,Gait,Activity Tolerance Progress Towards Goals Slow Progress due to Pain,Slow Progress due to Medical Issues,Slow Progress due to Activity Tolerance Assessment Summary Celi is making slow progress with her mobility. She could not progress into standing from chair this session with MaxA x2. She has difficulty following instructions for scooting up in chair and sit to stand technique most likely due to pain levels. She had to be hoyered back into bed this afternoon. PT continues to recommend SNF to progress bed mobility, transfers and gait. Goals Bed Mobility Goal Independent Transfer Goal Standby Assistance,Front Wheeled Walker Gait Goal Standby Assistance,Front Wheel Walker Gait Distance 50 Other Goals Pt to recall 3/3 lumbar spine surgical precautions in order to improve her post operative outcomes and improve her safety. Days to Meet Goals 5 Frequency of Treatment Frequency Of Treatment Twice a Day Treatment Plan Physical Therapy Treatment Plan Bed Mobility Training,Transfer Training,Gait Training, Therapeutic Exercise,Balance Retraining,Post Op Education, Discharge Planning,Hot or Cold Pack,Neuromuscular Re-ed, Coordination Retraining,Manual Therapy Precautions Lumbar Precautions Log Roll,No Twisting,Limit Bending,Lifting Restriction of 10 lbs,Gait Belt above Incisional Area Other Precautions Fall risk Weight Bearing Status Weight Bearing Status Weight Bear as Tolerated Recommendations To Nursing Amount of Assist Needed PT/OT Assist Only Discharge Recommendations PT Discharge Recommendations SNF Rehab Equipment Needed for Home Before FWW Discharge Transportation Needs at Discharge Wheelchair/Cabulance,Stretcher /Ambulance
[2023-06-14] MEDS: polyethylene glycoL 3350 17 GM POWD.PACK PO (18:49)
[2023-06-14] MEDS: MAGNESIUM HYDROXIDE 30 ML UDC PO (18:49)
[2023-06-14] MEDS: PRAMIPEXOLE 0.25 MG TABLET PO (20:30)
[2023-06-14] MEDS: ATORVASTATIN 20 MG TABLET 80 MG PO (20:31)
[2023-06-14] MEDS: SENNOSIDES 8.6 MG TABLET 17.2 MG PO (20:31)
--- NOTE | 2023-06-14 23:40 | RT ---
Perla CUNNINGHAM called me to check patient that was sat 72% on 12L High Flow she bumped in up to 15L was only getting about 86% reading. I informed Ivonne charge nurse what was going on and decided to start the patient on HHFNC hoping the pressure would help maintain her oxygen between 88% to 92%. Patient is on 50L 55% sating between 88% t0 92% Patient is stable at this time.
[2023-06-15] VITALS (43 sets, daily range): BP systolic 122–158; BP diastolic 57–86; PULSE 77–97; RESP 16–40; TEMP 30–36.8; O2SAT 74–96
--- NOTE | 2023-06-15 00:03 | PC.NURSE ---
O2 in 70s on 15L high flow. Called RT. Pt placed on airvo 50L 55% sating at 91-93%. notified, no new orders at this time.
--- NOTE | 2023-06-15 00:47 | DI.RAD.S_ITS ---
PROCEDURE: XR CHEST 1V INDICATIONS: sob TECHNIQUE: One view of the chest was acquired. COMPARISON: None. FINDINGS: Surgical changes and devices: None. Lungs and pleura: There are small bilateral pleural effusions with associated bibasilar opacities consistent with compressive atelectasis or consolidation. Mediastinum: Mediastinal contours appear normal. Heart size is normal. Bones and chest wall: No suspicious bony lesions. Overlying soft tissues appear unremarkable. IMPRESSION: 1. Small bilateral pleural effusions with associated bibasilar compressive atelectasis or consolidation. Dictated by: Mark Dawn M.D. on 06/15/2023 at 1:55 Approved by: Mark Dawn M.D. on 06/15/2023 at 1:56
[2023-06-15 01:15] LABS: HCO3 ABG 34 mmol/L (23-27); PCO2 ABG 52.4 mmHg (35-45); PO2 ABG 50 mmHg (80-100)
[2023-06-15 01:16] LABS: TCO2 ABG 36 mmol/L (23-27)
[2023-06-15 01:18] LABS: Oxygen Saturation ABG 85 % (95-100)
[2023-06-15 01:19] LABS: Fractionated Inspired Oxygen 55
--- NOTE | 2023-06-15 01:54 | PC.NURSE ---
ABGs order by Dr. Carreon. Ordered CXR, lasix 20mg IV x1, and ABG. Based on ABG results patient to transfer to ICU on continuous bipap. Labs ordered. Hospitalist consult placed.
[2023-06-15] MEDS: FUROSEMIDE 20 MG/2 ML VIAL IV ×2 (01:56→09:46)
--- NOTE | 2023-06-15 02:17 | PM.EVENT ---
Event Note Event Note (Rapid Response, Code, or fall): I was contacted b/c of pt's hypoxia chart reviewed pt is a 68 y/o F with multiple med problems who had recent surgery had some hypoxia that resolved, etiology unclear probably narcotics and copd. Pt on home O2. improvement of the pt hospitalist team subsequently signed off. pt yesterday developed hypoxia again not responding to initial therapy. charge nurse contacted ortho and med consult was again requested. abgs showed PaO2 of 50 on O2. viral signs otherwise stable. nebs ordered. pt transfered to icu, labs and cxr ordered. I contacted Ed doctor who said she would intervene if pt needs intubation and provided me with number for eICU. discussed with eICU who will take over including decision regarding intubation/bipap
[2023-06-15 02:19] LABS: Hematocrit 38.6 % (36-46); Hemoglobin 13.2 g/dL (12.0-16.0); Mean Corpuscular HGB Conc 34.3 % (30-36); Mean Corpuscular Hemoglobin 38.8 PG (26-34); Mean Corpuscular Volume 113.3 fL (80-100); Platelet Count 134 X10^3/uL (150-400); Red Cell Distribution Width 12.5 % (11.6-14.8); White Blood Cell Count 5.3 X10^3/uL (4.5-11.0)
[2023-06-15 02:27] LABS: BUN Creatinine Ratio 31.8 (6-22); Blood Urea Nitrogen 28 mg/dL (7-17); Calcium 9.3 mg/dL (8.4-10.2); Carbon Dioxide 34 mmol/L (22-32); Chloride 98 mmol/L (98-107); Estimated Glomerular Filt Rate > 60 mL/min (>60); Glucose 159 mg/dL (80-110); HEMOLYSIS 15 (0-50); Potassium 4.3 mmol/L (3.4-5.1); Sodium 138 mmol/L (137-145)
[2023-06-15 02:36] LABS: NT-proBNP (BNP-Adult 18+) 1020 pg/mL (<125)
[2023-06-15 02:40] LABS: Troponin I < 0.012 ng/mL (0.01-0.034)
--- NOTE | 2023-06-15 02:46 | DI.CT.S_ITS ---
PROCEDURE: CT ANGIO CHEST PE PROTOCOL INDICATIONS: Acute dyspnea TECHNIQUE: After the administration of intravenous contrast, 2 mm thick sections acquired from the pulmonary apices to the posterior costophrenic angles. 3-dimensional maximum intensity projection (MIP) coronal and sagittal reformats were then acquired through the thorax. For radiation dose reduction, the following was used: automated exposure control, adjustment of mA and/or kV according to patient size. COMPARISON: None. FINDINGS: Image quality: Excellent. Pulmonary arteries: Pulmonary arteries are normal in size, and demonstrate no intraluminal filling defects to suggest central pulmonary embolism. Lungs and pleura: Layering debris within the dependent lower lobe airways, with associated atelectasis and patchy interval vein consolidation. Moderate centrilobular emphysema and bronchial thickening. Mediastinum: Heart size is enlarged, without pericardial effusion. No mediastinal or hilar adenopathy. Thoracic aorta is normal in caliber and enhancement. Esophagus is normal in caliber, without hiatal hernia. Moderate coronary artery calcifications for age. Bones and chest wall: No suspicious bony lesions. Ribs and thoracic spine appear intact throughout. Thyroid gland is unremarkable. No axillary or supraclavicular adenopathy. Abdomen: Visualized upper abdominal solid organs appear normal in the early arterial phase of enhancement. IMPRESSION: No pulmonary embolus. Dependent debris within the lower lobar bronchi, with associated moderate atelectasis with interspersed patchy consolidation. Findings are concerning for aspiration pneumonia. Recommend follow-up in 2-3 months with low-dose chest CT to ensure resolution following treatment. Agree with preliminary report. Dictated by: Brett Kim M.D. on 06/15/2023 at 8:43 Approved by: Brett Kim M.D. on 06/15/2023 at 8:56
--- NOTE | 2023-06-15 02:49 | P.TELICUCN_ITS ---
History of Present Illness Consult details IF CAMERA ACTIVATED, patient seen via real-time interactive audiovisual communication: Camera activated Date Patient Seen: 06/15/23 Chief complaint: TLIF Requesting provider: Zcakary Carreon Consent obtained for tele-director of professional services care: Yes Patient Location: ICU Provider location (State): [place] Other participants/roles: RT/RN Narrative: 68 y.o. female who had L3-4 surgery for spinal stenosis w/ neurogenic claudication on 06/11/23 who became hypoxic on floor. Called by Dr. Carreon (tele-streetcar repairer) and advised of ICU transfer. He ordered Lasix 40 mg IVP and pCXR. Patient reportedly had paO2 of 50 on 50% HFNC. However, patient w/ RR in low 20s and O2 saturation 92-94% upon initial camera evaluation on 25% Oxymask. Mental status normal. Mildly hypertensive w/ SBP in 140s. 00:53 pCXR w/ clear lungs. No fever on vital sign curve. Pt had been on mechanical VTE prophylaxis. PMHx notable for CKD, COPD/chronic hypoxic respiratory failure on 2L, T2DM, duodenal ulcer, HTN, 0.5 ppd tobacco habit. PFSH Medical History Brain aneurysm Chronic kidney disease COPD (chronic obstructive pulmonary disease) Duodenal ulcer perforation Erythrocytosis History of common carotid artery stent placement Hyperlipidemia Hypertension Primary hyperparathyroidism Smoker Surgical History History of appendectomy History of surgical procedure History of surgical procedure Hx of tonsillectomy Social History household members: spouse Smoking Status: Current every day smoker alcohol intake: current substance use type: does not use Current Medications Current Medications Medications: Home Medications acetaminophen 500 mg tablet 1,500 mg PO Q3H PRN Pain (Scale Score 1-3) 05/16/23 [History Confirmed 06/11/23] albuterol sulfate 90 mcg/actuation aerosol inhaler 2 puff inhalation Q4-6H PRN Dyspnea 05/16/23 [History Confirmed 06/11/23] amlodipine 10 mg tablet 10 mg PO DAILY 05/16/23 [History Confirmed 06/11/23] aspirin 81 mg capsule 81 mg PO DAILY 05/16/23 [History Confirmed 06/11/23] atorvastatin 80 mg tablet 80 mg PO DAILY 05/16/23 [History Confirmed 06/11/23] clopidogrel 75 mg tablet 75 mg PO DAILY 05/16/23 [History Confirmed 06/11/23] glipizide 2.5 mg tablet, extended release 24 hr 2.5 mg PO DAILY 05/16/23 [History Confirmed 06/11/23] losartan 25 mg tablet 25 mg PO DAILY 05/16/23 [History Confirmed 06/11/23] metoprolol succinate 50 mg tablet,extended release 24 hr 50 mg PO DAILY 05/16/23 [History Confirmed 06/11/23] pantoprazole 40 mg tablet,delayed release 40 mg PO DAILY 05/16/23 [History Confirmed 06/11/23] pramipexole 0.25 mg tablet 0.25 mg PO DAILY 05/16/23 [History Confirmed 06/11/23] gabapentin 400 mg capsule 800 mg PO BID 06/11/23 [History Confirmed 06/11/23] Visit Medications (administered) Generic Name Dose Route Start Last Admin Trade Name Freq PRN Reason Stop Dose Admin Acetaminophen 650 mg 06/11/23 18:50 06/14/23 06:20 Acetaminophen 325 Mg Tablet PO 650 mg Q6H PRN Administration Fever/Mild Pain (1-3) Amlodipine Besylate 10 mg 06/12/23 09:00 06/14/23 08:55 Amlodipine 5 Mg Tablet PO 10 mg DAILY ABA Administration Atorvastatin Calcium 80 mg 06/13/23 21:00 06/14/23 20:31 Atorvastatin 20 Mg Tablet PO 80 mg BEDTIME ABA Administration Docusate Sodium 100 mg 06/11/23 21:00 06/14/23 20:31 Docusate 100 Mg Capsule PO 100 mg BID ABA Administration Gabapentin 800 mg 06/11/23 21:00 06/14/23 20:30 Gabapentin 400 Mg Capsule PO 800 mg BID ABA Administration Hydromorphone HCl 0.5 mg 06/11/23 18:50 06/11/23 20:59 Hydromorphone 0.5 Mg Inj IV 0.5 mg Q2H PRN Administration Pain, Severe (7-10) Lactated Ringer's 1,000 mls @ 125 mls/hr 06/11/23 18:50 06/12/23 13:34 Lactated Ringers IV Infused CONT ABA Infusion Losartan Potassium 25 mg 06/12/23 09:00 06/14/23 08:56 Losartan 25 Mg Tablet PO 25 mg DAILY ABA Administration Magnesium Hydroxide 30 ml 06/11/23 18:50 06/14/23 18:49 Magnesium Hydroxide 30 Ml Udc PO 30 ml DAILY PRN Administration Constipation Metoprolol Succinate 50 mg 06/12/23 09:00 06/14/23 08:55 Metoprolol Er 50 Mg Tablet PO 50 mg DAILY ABA Administration Nf - Glipizide 2.5 2.5 mg 06/12/23 09:00 06/14/23 08:56 Mg Er Tablet PO Not Given DAILY ABA Oxycodone HCl 5 mg 06/13/23 13:21 06/14/23 15:18 Oxycodone Ir 5 Mg Tablet PO 5 mg Q3HR PRN Administration Pain, Moderate (4-6) Pantoprazole Sodium 40 mg 06/12/23 09:00 06/14/23 08:[address] 40 Mg Tablet PO 40 mg DAILY ABA Administration Polyethylene Glycol 17 gm 06/11/23 18:50 06/14/23 18:49 Polyethylene Glycol 3350 17 Gm Powd.Pack PO 17 gm DAILY PRN Administration Constipation Pramipexole Dihydrochloride 0.25 mg 06/12/23 21:00 06/14/23 20:30 Pramipexole 0.25 Mg Tablet PO 0.25 mg BEDTIME ABA Administration Sennosides 17.2 mg 06/11/23 21:00 06/14/23 20:31 Sennosides 8.6 Mg Tablet PO 17.2 mg BEDTIME ABA Administration Tramadol HCl 50 mg 06/14/23 11:05 06/14/23 20:31 Tramadol 50 Mg Tablet PO 50 mg TID PRN Administration Pain, Moderate (4-6) Exam Vital Signs (past 8 hours): - 06/14/23 19:00 06/14/23 19:00 06/14/23 22:17 Temperature 97.4 F L Pulse Rate 89 Respiratory Rate 20 Blood Pressure 129/62 Pulse Oximetry 90 L 86 L Oxygen Delivery Method Simple Mask Oxygen Flow Rate 12 14 Fraction of Inspired Oxygen 06/14/23 23:39 06/14/23 23:45 06/15/23 01:50 Temperature 97.3 F L Pulse Rate 82 Respiratory Rate 16 Blood Pressure 141/60 H Pulse Oximetry 92 93 Oxygen Delivery Method Heated High Flow Heated High Flow Oxygen Flow Rate 50 9 Fraction of Inspired Oxygen 55 06/15/23 01:48 06/15/23 02:00 06/15/23 02:00 Temperature Pulse Rate 82 84 Respiratory Rate 17 17 Blood Pressure 142/65 H Pulse Oximetry 93 91 Oxygen Delivery Method Oxygen Flow Rate 7 Fraction of Inspired Oxygen 06/15/23 01:45 06/15/23 02:00 Temperature Pulse Rate Respiratory Rate Blood Pressure 142/65 H Pulse Oximetry Oxygen Delivery Method BiPAP Oxygen Flow Rate Fraction of Inspired Oxygen 50 Fraction of Inspired Oxygen 50 SaO2/FiO2 Ratio 167 Oxygen Delivery Method BiPAP Oxygen Flow Rate 7 Resp Effort & Inspection: normal respiratory effort Cardio Rate: regular rate Rhythm: regular rhythm Neuro General: patient alert, patient awake, patient oriented x3 and moves all extremities Objective Labs 06/15/23 02:07 06/15/23 02:07 Labs: Laboratory Results - last 24 hr 06/15/23 06/15/23 06/15/23 00:54 02:07 02:07 WBC 5.3 RBC 3.40 L Hgb 13.2 Hct 38.6 MCV 113.3 H MCH 38.8 H MCHC 34.3 RDW 12.5 Plt Count 134 L ABG pH 7.41 ABG pCO2 52.4 H ABG pO2 50 L ABG HCO3 34 H ABG Total CO2 36 H ABG O2 Saturation 85 L* ABG Base Excess 9.0 H FiO2 55 Sodium 138 Potassium 4.3 Chloride 98 Carbon Dioxide 34 H BUN 28 H Creatinine 0.88 Estimated GFR > 60 BUN/Creatinine Ratio 31.8 H Glucose 159 H Calcium 9.3 Troponin I NT-Pro-B Natriuret Pep 06/15/23 06/15/23 02:07 02:07 WBC RBC Hgb Hct MCV MCH MCHC RDW Plt Count ABG pH ABG pCO2 ABG pO2 ABG HCO3 ABG Total CO2 ABG O2 Saturation ABG Base Excess FiO2 Sodium Potassium Chloride Carbon Dioxide BUN Creatinine Estimated GFR BUN/Creatinine Ratio Glucose Calcium Troponin I < 0.012 NT-Pro-B Natriuret Pep 1020 H Assessment & Plan Assessment and plan (1) Acute and chronic respiratory failure with hypoxia: Problem details: Unclear etiology. Does not appear to be infectious. Elevated BNP raises CHF etiology. Post-op status also raises DVT/PE concern Status: Acute Plan: -Wean O2 source as tolerate -Pul CTA -Start Duonebs q4H WA -Changed albuterol neds to q2H PRN -Diurese empirically given elevated BNP (2) Duodenal ulcer perforation: Problem details: Chronic issue (history of) Status: Chronic Plan: -Continue PPI (3) COPD (chronic obstructive pulmonary disease): Status: Acute Plan: -See problem #1 (4) Elevated brain natriuretic peptide (BNP) level: Status: Acute Plan: -See problem #1 (5) Type 2 diabetes mellitus: Problem details: Has history of PVD Qualifiers: Diabetes mellitus halfway insulin use: unspecified terminologist insulin use status Diabetes mellitus complication status: with circulatory complication Status: Acute Plan: -Continue SUBQ insulin protocol I spent a total of 35 minutes of noncontinuous critical care time today on this patient's care; this time excludes all procedural time.
[2023-06-15] MEDS: ACETAMINOPHEN 325 MG TABLET 650 MG PO (05:34)
[2023-06-15] MEDS: OXYCODONE IR 5 MG TABLET PO ×2 (05:34→12:19)
--- NOTE | 2023-06-15 05:55 | PC.NURSE ---
Night Note- Patient brought to ICU room 227 from at 0145 to be placed on Bi-pap and close observation. She is oriented x3, forgetful to date, can make needs known. Bi-pap settings 50%, 14/6, rate 16, SpO2 88-92%, denies pain or dyspnea, LS coarse exp rh/wh. ABG, CXR, and labs drawn. 20mg IV Lasix given x1, patient has diuresed 2700ml for shift. SR, BP stable, afebrile, see vital trends. Tolerated going to CT fairly well, medicated with oxycodone and Tylenol.
[2023-06-15 06:27] LABS: Troponin I < 0.012 ng/mL (0.01-0.034)
--- NOTE | 2023-06-15 07:00 | DI.ECHO.S_ITS ---
[facility]---------+ [facility] +---------+ : : [address] [place] : : : : [id number] : : : : Phone: [phone]---------+ Echocardiogram Report + + :Name: BONNIE MARTINEZ Study Date: 06/15/2023 Height: 62 in : :[facility] ReadingLocation: Weight: 155 lb : : Gender: Female BSA: 1.7 m2 : :: 1955 Age: 68 yrs BP: 137/65 mmHg: :Reason For Study: Dyspnea : :Ordering Physician: Pasquale, : :Stephon Performed By: Michelle Smith : :Referring: Stephon Giordano : + + Interpretation Summary The study quality was technically difficult. The ejection fraction is estimated to be 50-55%. There are no obvious focal wall motion abnormalities noted but poor endocardial definition reduces the sensitivity for the detection of such. There is no significant valvular heart disease. Procedure: A two-dimensional transthoracic echocardiogram with color flow and Doppler was performed. The study quality was technically difficult. There is no prior echocardiogram noted for this patient. The patient was in normal sinus rhythm during the exam. Left Ventricle: The left ventricle is normal in size. The ejection fraction is estimated to be 50-55%. There are no obvious focal wall motion abnormalities noted but poor endocardial definition reduces the sensitivity for the detection of such. Diastolic parameters suggest a relaxation abnormality of the left ventricle, consistent with probable normal filling pressures. Right Ventricle: The right ventricle is normal size. Right ventricular systolic function is borderline reduced. Atria: The left atrial size is normal. Right atrial size is normal. There is no Doppler evidence for an interatrial shunt. Mitral Valve: The mitral valve is normal. There is no mitral valve stenosis. There is trace mitral regurgitation. Aortic Valve: The aortic valve is not well visualized. There is no aortic valve stenosis. There is trace aortic regurgitation. Tricuspid Valve: The tricuspid valve is normal. There is no tricuspid stenosis. There is trace tricuspid regurgitation. Pulmonic Valve: The pulmonic valve is not well visualized. There is no pulmonic valvular stenosis. There is trace pulmonic regurgitation. Great Vessels: The aortic root is normal size. The ascending aorta is normal in size. The pulmonary artery is normal size. The inferior vena cava was not well visualized. Pericardium/ Pleura There is a trivial to small pericardial effusion noted. There is a moderate left-sided pleural effusion. MMode/2D Measurements & Calculations EPSS: 0.80 cm LVOT diam: 1.8 cm Ao root diam: 2.7 cm asc Aorta Diam: 2.9 cm LA A2 area: 16.0 cm2 RA long axis: 4.3 cm LA A4 area: 14.1 cm2 RA area: 12.3 cm2 LA length (vol): 5.4 cm RA vol: 29.7 ml LA vol: 35.7 ml RA : 17.3 ml/m2 LA vol index: 20.8 ml/m2 RVD1 (basal): 3.5 cm TAPSE_phl: 1.8 cm Doppler Measurements & Calculations Ao V2 max: 139.0 cm/sec LVOT Max Shaan: 97.5 cm/sec Ao V2 mean: 93.0 cm/sec LV V1 max P.8 mmHg Ao max P.0 mmHg LV V1 VTI: 15.6 cm Ao mean P.0 mmHg YOLANDE(I,D): 1.6 cm2 Ao V2 VTI: 24.3 cm YOLANDE(V,D): 1.8 cm2 sev ratio: 0.64 YOLANDE indexed to BSA (cm^2/m^2): 0.95 MV E max shaan: 72.9 cm/sec PA V2 max: 81.4 cm/sec MV A max shaan: 82.9 cm/sec PA V2 mean: 53.8 cm/sec MV E/A: 0.88 PA mean P.0 mmHg Med Peak E' Shaan: 5.7 cm/sec PA pr(Accel): 56.5 mmHg E/E' med: 12.8 Lat Peak E' Shaan: 6.8 cm/sec E/E' lat: 10.8 E/e' average: 11.8 MV dec time: 0.23 sec SV(LVOT): 39.7 ml AV VR_phl: 0.70 YOLANDE(VTI)/BSA_phl: 0.95 Reading Physician:01:12 PM
[2023-06-15 07:01] LABS: MRSA (Nasal) PCR Not Detected (Not Detect)
[2023-06-15 07:38] LABS: Folate 17.5 ng/mL (2.76-20.0); Vitamin B12 639 pg/mL (239-931)
[2023-06-15] MEDS: ALBUTEROL/IPRATROPIUM 3 ML AMPUL INH ×4 (08:41→17:58)
--- NOTE | 2023-06-15 09:23 | OT.IPNOTE ---
Per pt's nurse, pt on BiPAP, hold therapy this morning and to check on the pt this PM if appropriate.
--- NOTE | 2023-06-15 09:24 | PT-IP ANOTE ---
Per nursing pt is not appropriate for PT at this time due to ongoing respiratory issues and needing BIPAP.
[2023-06-15] MEDS: AMLODIPINE 5 MG TABLET 10 MG PO (09:44)
[2023-06-15] MEDS: DOCUSATE 100 MG CAPSULE PO ×2 (09:44→21:00)
[2023-06-15] MEDS: GABAPENTIN 400 MG CAPSULE 800 MG PO ×2 (09:45→21:00)
[2023-06-15] MEDS: METOPROLOL ER 50 MG TABLET PO (09:45)
[2023-06-15] MEDS: PANTOPRAZOLE DR 40 MG TABLET PO (09:46)
[2023-06-15] MEDS: SODIUM CHLORIDE 0.9% FLUSH 10 ML IV ×2 (09:47→21:00)
--- NOTE | 2023-06-15 10:07 | P.TELICUPN_ITS ---
Subjective Subjective IF CAMERA ACTIVATED, patient seen via real-time interactive audiovisual communication: Camera activated Consent obtained for tele-radiographic technologist care: Yes Patient Location: ICU Provider location (State): [place] Other participants/roles: hospitalist, RN, RT Interval history: Patient Summary: 68 y.o. female with PMH of CKD, T2DM, PUD, HTN, and COPD had L3-4 surgery for spinal stenosis w/ neurogenic claudication on 06/11/23. On 06/14/23 Pt was transferred to ICU on for acute hypercapnic and hypoxic respiratory failure and placed on BIPAP 16/8 40%. Recent events: Pt. also given Lasix and patient Diuresed out 2.7 L net neg. She was tried off BPAP at 8 am this morning but after 20 min patient had to go back on BIPAP because of work of breathing. Chest CT neg for PE but does show some findings suggestive of possible aspiration PNA. Current Medications Current Medications Medications: Home Medications acetaminophen 500 mg tablet 1,500 mg PO Q3H PRN Pain (Scale Score 1-3) 05/16/23 [History Confirmed 06/11/23] albuterol sulfate 90 mcg/actuation aerosol inhaler 2 puff inhalation Q4-6H PRN Dyspnea 05/16/23 [History Confirmed 06/11/23] amlodipine 10 mg tablet 10 mg PO DAILY 05/16/23 [History Confirmed 06/11/23] aspirin 81 mg capsule 81 mg PO DAILY 05/16/23 [History Confirmed 06/11/23] atorvastatin 80 mg tablet 80 mg PO DAILY 05/16/23 [History Confirmed 06/11/23] clopidogrel 75 mg tablet 75 mg PO DAILY 05/16/23 [History Confirmed 06/11/23] glipizide 2.5 mg tablet, extended release 24 hr 2.5 mg PO DAILY 05/16/23 [History Confirmed 06/11/23] losartan 25 mg tablet 25 mg PO DAILY 05/16/23 [History Confirmed 06/11/23] metoprolol succinate 50 mg tablet,extended release 24 hr 50 mg PO DAILY 05/16/23 [History Confirmed 06/11/23] pantoprazole 40 mg tablet,delayed release 40 mg PO DAILY 05/16/23 [History Confirmed 06/11/23] pramipexole 0.25 mg tablet 0.25 mg PO DAILY 05/16/23 [History Confirmed 06/11/23] gabapentin 400 mg capsule 800 mg PO BID 06/11/23 [History Confirmed 06/11/23] Visit Medications (administered) Generic Name Dose Route Start Last Admin Trade Name Syl PRN Reason Stop Dose Admin Acetaminophen 650 mg 06/11/23 18:50 06/15/23 05:34 Acetaminophen 325 Mg Tablet PO 650 mg Q6H PRN Administration Fever/Mild Pain (1-3) Albuterol/Ipratropium 3 ml 06/15/23 07:00 06/15/23 08:41 Albuterol/Ipratropium 3 Ml Ampul INH 3 ml [id number] ABA Administration Amlodipine Besylate 10 mg 06/12/23 09:00 06/15/23 09:44 Amlodipine 5 Mg Tablet PO 10 mg DAILY ABA Administration Atorvastatin Calcium 80 mg 06/13/23 21:00 06/14/23 20:31 Atorvastatin 20 Mg Tablet PO 80 mg BEDTIME ABA Administration Docusate Sodium 100 mg 06/11/23 21:00 06/15/23 09:44 Docusate 100 Mg Capsule PO 100 mg BID ABA Administration Furosemide 20 mg 06/15/23 09:00 06/15/23 09:46 Furosemide 20 Mg/2 Ml Vial IV 20 mg BID ABA Administration Gabapentin 800 mg 06/11/23 21:00 06/15/23 09:45 Gabapentin 400 Mg Capsule PO 800 mg BID ABA Administration Hydromorphone HCl 0.5 mg 06/11/23 18:50 06/11/23 20:59 Hydromorphone 0.5 Mg Inj IV 0.5 mg Q2H PRN Administration Pain, Severe (7-10) Magnesium Hydroxide 30 ml 06/11/23 18:50 06/14/23 18:49 Magnesium Hydroxide 30 Ml Udc PO 30 ml DAILY PRN Administration Constipation Metoprolol Succinate 50 mg 06/12/23 09:00 06/15/23 09:45 Metoprolol Er 50 Mg Tablet PO 50 mg DAILY ABA Administration Nf - Glipizide 2.5 2.5 mg 06/12/23 09:00 06/15/23 09:47 Mg Er Tablet PO Not Given DAILY ABA Oxycodone HCl 5 mg 06/13/23 13:21 06/15/23 05:34 Oxycodone Ir 5 Mg Tablet PO 5 mg Q3HR PRN Administration Pain, Moderate (4-6) Pantoprazole Sodium 40 mg 06/12/23 09:00 06/15/23 09:[address] 40 Mg Tablet PO 40 mg DAILY ABA Administration Polyethylene Glycol 17 gm 06/11/23 18:50 06/14/23 18:49 Polyethylene Glycol 3350 17 Gm Powd.Pack PO 17 gm DAILY PRN Administration Constipation Pramipexole Dihydrochloride 0.25 mg 06/12/23 21:00 06/14/23 20:30 Pramipexole 0.25 Mg Tablet PO 0.25 mg BEDTIME ABA Administration Sennosides 17.2 mg 06/11/23 21:00 06/14/23 20:31 Sennosides 8.6 Mg Tablet PO 17.2 mg BEDTIME ABA Administration Sodium Chloride 10 ml 06/15/23 09:00 06/15/23 09:47 Sodium Chloride 0.9% Flush IV 10 ml BID ABA Administration Tramadol HCl 50 mg 06/14/23 11:05 06/14/23 20:31 Tramadol 50 Mg Tablet PO 50 mg TID PRN Administration Pain, Moderate (4-6) Objective Ventilator Parameters: Ventilator Settings FiO2 55 Labs 06/15/23 02:07 06/15/23 05:53 Labs: Laboratory Results - last 24 hr 06/15/23 06/15/23 06/15/23 00:54 01:52 02:07 WBC 5.3 RBC 3.40 L Hgb 13.2 Hct 38.6 MCV 113.3 H MCH 38.8 H MCHC 34.3 RDW 12.5 Plt Count 134 L ABG pH 7.41 ABG pCO2 52.4 H ABG pO2 50 L ABG HCO3 34 H ABG Total CO2 36 H ABG O2 Saturation 85 L* ABG Base Excess 9.0 H FiO2 55 Sodium Potassium Chloride Carbon Dioxide BUN Creatinine Estimated GFR BUN/Creatinine Ratio Glucose Calcium Troponin I NT-Pro-B Natriuret Pep Vitamin B12 Folate TSH Nasal Screen MRSA (PCR) Not detected 06/15/23 06/15/23 06/15/23 02:07 02:07 02:07 WBC RBC Hgb Hct MCV MCH MCHC RDW Plt Count ABG pH ABG pCO2 ABG pO2 ABG HCO3 ABG Total CO2 ABG O2 Saturation ABG Base Excess FiO2 Sodium 138 Potassium 4.3 Chloride 98 Carbon Dioxide 34 H BUN 28 H Creatinine 0.88 Estimated GFR > 60 BUN/Creatinine Ratio 31.8 H Glucose 159 H Calcium 9.3 Troponin I < 0.012 NT-Pro-B Natriuret Pep 1020 H Vitamin B12 Folate TSH Nasal Screen MRSA (PCR) 06/15/23 06/15/23 06/15/23 05:53 05:53 05:53 WBC RBC Hgb Hct MCV MCH MCHC RDW Plt Count ABG pH ABG pCO2 ABG pO2 ABG HCO3 ABG Total CO2 ABG O2 Saturation ABG Base Excess FiO2 Sodium Potassium Chloride Carbon Dioxide BUN Creatinine Estimated GFR BUN/Creatinine Ratio Glucose Calcium Troponin I < 0.012 NT-Pro-B Natriuret Pep Vitamin B12 639 Folate 17.5 TSH 1.50 Nasal Screen MRSA (PCR) Exam Vital Signs (past 8 hours): - 06/15/23 03:00 06/15/23 03:00 06/15/23 04:27 Temperature 97.6 F Pulse Rate 84 Respiratory Rate 16 Blood Pressure 134/63 Pulse Oximetry 94 Oxygen Delivery Method Oxygen Flow Rate 7 Fraction of Inspired Oxygen 06/15/23 04:00 06/15/23 04:00 06/15/23 05:00 Temperature Pulse Rate 83 87 Respiratory Rate 18 20 Blood Pressure 127/59 L Pulse Oximetry 89 L 89 L Oxygen Delivery Method Oxygen Flow Rate 7 Fraction of Inspired Oxygen 06/15/23 06:00 06/15/23 06:00 06/15/23 06:30 Temperature Pulse Rate 88 Respiratory Rate 17 Blood Pressure 123/59 L Pulse Oximetry 90 L Oxygen Delivery Method BiPAP Oxygen Flow Rate 7 Fraction of Inspired Oxygen 06/15/23 07:00 06/15/23 07:00 06/15/23 08:00 Temperature 96.6 F L Pulse Rate 79 Respiratory Rate 16 Blood Pressure 140/63 139/63 Pulse Oximetry 92 Oxygen Delivery Method Oxygen Flow Rate Fraction of Inspired Oxygen 06/15/23 08:00 06/15/23 09:00 06/15/23 08:41 Temperature Pulse Rate 77 88 Respiratory Rate 16 28 H Blood Pressure Pulse Oximetry 93 74 L 90 L Oxygen Delivery Method T-Piece Oximask Oxygen Flow Rate 11 Fraction of Inspired Oxygen 06/15/23 09:13 06/15/23 09:45 Temperature Pulse Rate 86 Respiratory Rate Blood Pressure 158/65 H Pulse Oximetry Oxygen Delivery Method Oxygen Flow Rate Fraction of Inspired Oxygen 40 Fraction of Inspired Oxygen 40 SaO2/FiO2 Ratio 167 Oxygen Delivery Method T-Piece,Oximask Oxygen Flow Rate 11 Narrative Exam Narrative: Patient seen over two way audio visual system. Pt. 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 CV: currently hemodynamically stable Pulm: will try to wean down BIPAP settings as tolerated and once patient is down to 10/5 will transition patient to HFNC -will start solumedrol 60 mg QD -will continue diuresis as tolerated, aim for 1-2 L net neg a day, consider diamox instead of lasix if HCO3 continues to climb -duonebs ID: check blood and sputum culture -start Zosyn to cover for HCAP/aspiration PNA GI: NPO for now FEN/Renal: check Chem 7 and replace electrolytes as needed Endo: monitor BG q6H PPS: PPI, consider starting SQ heparin for DVT prophylaxis when ok per Neurosurgeon Code status: FULL CODE CCT spent : 60 min
[2023-06-15 10:08] LABS: BUN Creatinine Ratio 30.9 (6-22); Blood Urea Nitrogen 29 mg/dL (7-17); Calcium 9.6 mg/dL (8.4-10.2); Carbon Dioxide 35 mmol/L (22-32); Chloride 94 mmol/L (98-107); Estimated Glomerular Filt Rate > 60 mL/min (>60); Glucose 152 mg/dL (80-110); HEMOLYSIS 18 (0-50); Magnesium 1.8 mg/dL (1.6-2.3); Potassium 3.9 mmol/L (3.4-5.1); Sodium 135 mmol/L (137-145)
[2023-06-15 10:10] LABS: HCO3 ABG 38 mmol/L (23-27); Oxygen Saturation ABG 83 % (95-100); PCO2 ABG 61.3 mmHg (35-45); PO2 ABG 50 mmHg (80-100); TCO2 ABG 39 mmol/L (23-27)
[2023-06-15 10:11] LABS: Fractionated Inspired Oxygen 40
[2023-06-15 10:46] LABS: Procalcitonin 0.12 ng/mL (<0.5)
[2023-06-15] MEDS: ASPIRIN EC 81 MG TABLET PO (11:35)
[2023-06-15] MEDS: PIPERACILLIN/TAZO 3.375 GM in SODIUM CHLORIDE 0.9% 100 ML IV ×2 (11:35→17:59)
[2023-06-15] MEDS: methylPREDNISolone 125 MG/2 ML VIAL 60 MG IV (11:36)
[2023-06-15] MEDS: POTASSIUM CHLORIDE IN WATER 10 MEQ/100 ML PIGGYBACK 100 MEQ IV ×2 (11:39→12:52)
[2023-06-15] MEDS: MAGNESIUM SULFATE 2 GM/50 ML PIGGYBACK IV (11:39)
[2023-06-15] MEDS: INSULIN LISPRO 100 UNIT/ML 3ML VIAL SUBCUT ×2 (11:41→17:57)
[2023-06-15] MEDS: CLOPIDOGREL 75 MG TABLET PO (12:53)
--- NOTE | 2023-06-15 12:57 | OT.IPNOTE ---
Per nurse when asked in pm, pt not medically stable and to hold therapy today. To check on pt tomorrow.
--- NOTE | 2023-06-15 13:18 | CM.DPC ---
DCP Cont: Per Ortho PA, pt had respiratory difficulty last night with hypoxia and was moved to ICU for higher oxygen needs and has been on bipap/oximask today and not stable for discharge at this time. ORIANA Cui kindly updated [facility] admissions and they cancelled the scheduled cabulance for today and faxed updated clinicals and pt likely will not be ready for d/c through the weekend pending her progress. Plan: SW to follow closely for plan of d/c to [facility] when oxygen levels stable before safe return home with spouse. Suzy Huynh, INSPECTOR AIDE
[2023-06-15 13:42] LABS: pH ABG 7.42 (7.35-7.45)
--- NOTE | 2023-06-15 14:19 | PT-IP ANOTE ---
Pt continues to not be medically stable for PT at this time per nursing. PT will check back in tomorrow.
--- NOTE | 2023-06-15 15:03 | P.PN_ITS ---
Subjective Subjective Date Patient Seen: 06/15/23 Time Patient Seen: 15:03 Interval history: Patient transferred to ICU early this morning due to becoming hypoxic. She is quite sedated this morning and re rounded this afternoon. Patient is more awake. Denies pain. Exam Vital Signs (past 8 hours): - 06/15/23 08:00 06/15/23 08:00 06/15/23 09:00 Temperature 96.6 F L Pulse Rate 77 88 Respiratory Rate 16 28 H Blood Pressure 139/63 Pulse Oximetry 93 74 L Oxygen Delivery Method Oxygen Flow Rate Fraction of Inspired Oxygen 06/15/23 08:41 06/15/23 09:13 06/15/23 09:45 Temperature Pulse Rate 86 Respiratory Rate Blood Pressure 158/65 H Pulse Oximetry 90 L Oxygen Delivery Method T-Piece Oximask Oxygen Flow Rate 11 Fraction of Inspired Oxygen 40 06/15/23 10:11 06/15/23 09:44 06/15/23 09:44 Temperature Pulse Rate 87 Respiratory Rate 16 Blood Pressure 158/65 H Pulse Oximetry 91 Oxygen Delivery Method Oxygen Flow Rate Fraction of Inspired Oxygen 50 06/15/23 10:00 06/15/23 10:29 06/15/23 10:15 Temperature Pulse Rate 93 H 85 Respiratory Rate 25 H Blood Pressure 134/65 Pulse Oximetry 86 L Oxygen Delivery Method Oxygen Flow Rate Fraction of Inspired Oxygen 50 06/15/23 11:57 06/15/23 10:02 06/15/23 10:02 Temperature Pulse Rate 90 Respiratory Rate 21 Blood Pressure 134/65 137/65 Pulse Oximetry 89 L Oxygen Delivery Method Oxygen Flow Rate Fraction of Inspired Oxygen 60 06/15/23 11:00 06/15/23 11:00 06/15/23 12:00 Temperature Pulse Rate 83 89 Respiratory Rate 17 23 Blood Pressure 134/65 Pulse Oximetry 93 90 L Oxygen Delivery Method Oxygen Flow Rate Fraction of Inspired Oxygen 06/15/23 12:01 06/15/23 12:01 06/15/23 13:00 Temperature 96.7 F L Pulse Rate 88 89 Respiratory Rate 19 18 Blood Pressure 156/67 H Pulse Oximetry 90 L 87 L Oxygen Delivery Method Oxygen Flow Rate Fraction of Inspired Oxygen 06/15/23 13:01 06/15/23 13:01 06/15/23 14:00 Temperature Pulse Rate 89 Respiratory Rate 18 Blood Pressure 147/67 H 129/61 Pulse Oximetry 88 L Oxygen Delivery Method Oxygen Flow Rate Fraction of Inspired Oxygen 06/15/23 14:00 Temperature Pulse Rate 82 Respiratory Rate 17 Blood Pressure Pulse Oximetry 90 L Oxygen Delivery Method Oxygen Flow Rate Fraction of Inspired Oxygen Fraction of Inspired Oxygen 60 SaO2/FiO2 Ratio 167 Oxygen Delivery Method T-Piece,Oximask Oxygen Flow Rate 11 Narrative Exam Narrative: 68-year-old female resting comfortably in bed in no apparent distress requiring high-flow oxygen via mask. Motor functions intact bilateral lower extremities. Sensation grossly intact light touch bilateral lower extremities. Const General: comfortable Orientation: alert Objective Labs 06/15/23 02:07 06/15/23 05:53 Labs: Laboratory Results - last 24 hr 06/15/23 06/15/23 06/15/23 00:54 01:52 02:07 WBC 5.3 RBC 3.40 L Hgb 13.2 Hct 38.6 MCV 113.3 H MCH 38.8 H MCHC 34.3 RDW 12.5 Plt Count 134 L ABG pH 7.42 ABG pCO2 52.4 H ABG pO2 50 L ABG HCO3 34 H ABG Total CO2 36 H ABG O2 Saturation 85 L* ABG Base Excess 9.0 H FiO2 55 Sodium Potassium Chloride Carbon Dioxide BUN Creatinine Estimated GFR BUN/Creatinine Ratio Glucose Calcium Magnesium Troponin I NT-Pro-B Natriuret Pep Vitamin B12 Folate Procalcitonin TSH Nasal Screen MRSA (PCR) Not detected 06/15/23 06/15/23 06/15/23 02:07 02:07 02:07 WBC RBC Hgb Hct MCV MCH MCHC RDW Plt Count ABG pH ABG pCO2 ABG pO2 ABG HCO3 ABG Total CO2 ABG O2 Saturation ABG Base Excess FiO2 Sodium 138 Potassium 4.3 Chloride 98 Carbon Dioxide 34 H BUN 28 H Creatinine 0.88 Estimated GFR > 60 BUN/Creatinine Ratio 31.8 H Glucose 159 H Calcium 9.3 Magnesium Troponin I < 0.012 NT-Pro-B Natriuret Pep 1020 H Vitamin B12 Folate Procalcitonin TSH Nasal Screen MRSA (PCR) 06/15/23 06/15/23 06/15/23 05:53 05:53 05:53 WBC RBC Hgb Hct MCV MCH MCHC RDW Plt Count ABG pH ABG pCO2 ABG pO2 ABG HCO3 ABG Total CO2 ABG O2 Saturation ABG Base Excess FiO2 Sodium Potassium Chloride Carbon Dioxide BUN Creatinine Estimated GFR BUN/Creatinine Ratio Glucose Calcium Magnesium Troponin I < 0.012 NT-Pro-B Natriuret Pep Vitamin B12 639 Folate 17.5 Procalcitonin TSH 1.50 Nasal Screen MRSA (PCR) 06/15/23 06/15/23 06/15/23 05:53 05:53 09:57 WBC RBC Hgb Hct MCV MCH MCHC RDW Plt Count ABG pH 7.40 ABG pCO2 61.3 H* ABG pO2 50 L ABG HCO3 38 H ABG Total CO2 39 H ABG O2 Saturation 83 L* ABG Base Excess 13.0 H FiO2 40 Sodium 135 L Potassium 3.9 Chloride 94 L Carbon Dioxide 35 H BUN 29 H Creatinine 0.94 Estimated GFR > 60 BUN/Creatinine Ratio 30.9 H Glucose 152 H Calcium 9.6 Magnesium 1.8 Troponin I NT-Pro-B Natriuret Pep Vitamin B12 Folate Procalcitonin 0.12 TSH Nasal Screen MRSA (PCR) 06/15/23 10:13 WBC RBC Hgb Hct MCV MCH MCHC RDW Plt Count ABG pH ABG pCO2 ABG pO2 ABG HCO3 ABG Total CO2 ABG O2 Saturation ABG Base Excess FiO2 Sodium Potassium Chloride Carbon Dioxide BUN Creatinine Estimated GFR BUN/Creatinine Ratio Glucose Calcium Magnesium 2.0 Troponin I NT-Pro-B Natriuret Pep Vitamin B12 Folate Procalcitonin TSH Nasal Screen MRSA (PCR) PFSH Medical History Brain aneurysm Chronic kidney disease COPD (chronic obstructive pulmonary disease) Duodenal ulcer perforation Erythrocytosis History of common carotid artery stent placement Hyperlipidemia Hypertension Primary hyperparathyroidism Smoker Surgical History History of appendectomy History of surgical procedure History of surgical procedure Hx of tonsillectomy Social History household members: spouse Smoking Status: Current every day smoker alcohol intake: current substance use type: does not use Assessment & Plan Post-op Postoperative Procedures: Procedures Operation Date: 06/11/23 14:45 Actual Procedure Side Surgeon p L3-4 TLIF Javed Vallecillo MD Postoperative day: 4 Postoperative status narrative: Status post L3-L4 fusion by Dr. Vallecillo June 11, 2023 Consultation for worsening respiratory status provide by hospitalist on June 12, 2023. Patient had hypoxic episode earlier this morning requiring telemedicine consult and transferred to ICU. 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
--- NOTE | 2023-06-15 16:12 | DI.RAD.S_ITS ---
PROCEDURE: XR CHEST 1V INDICATIONS: check placement of picc TECHNIQUE: One view of the chest was acquired. COMPARISON: [facility], CT, CT ANGIO CHEST PE PROTOCOL, 06/15/2023, 5:07. [facility], CR, XR CHEST 1V, 06/15/2023, 0:53. FINDINGS: Surgical changes and devices: None. Lungs and pleura: Suspect small bilateral pleural effusions and bibasilar consolidation or atelectasis. No pleural effusions or pneumothorax. Mediastinum: Mediastinal contours appear normal. Heart size is normal. Bones and chest wall: No suspicious bony lesions. Overlying soft tissues appear unremarkable. IMPRESSION: Suspect small bilateral pleural effusions with bibasilar consolidations or atelectasis. Dictated by: Regulo Harman M.D. on 06/15/2023 at 17:11 Approved by: Regulo Harman M.D. on 06/15/2023 at 17:12
--- NOTE | 2023-06-15 20:22 | PM.PN.1 ---
Subjective Subjective Date Patient Seen: 06/15/23 Time Patient Seen: 08:00 Interval history: This morning when seeing her she is on BIPAP and says she feels well. She earlier this AM had been trialed on nasal cannula, oxymask, and heated high flow and for the first two did not maintain her O2 sats and for high flow said that the flow was not tolerable. Exam Vital Signs (past 8 hours): - 06/15/23 13:00 06/15/23 13:01 06/15/23 13:01 Temperature Pulse Rate 89 89 Respiratory Rate 18 18 Blood Pressure 147/67 H Pulse Oximetry 87 L 88 L Oxygen Delivery Method Fraction of Inspired Oxygen 06/15/23 14:00 06/15/23 14:00 06/15/23 14:00 Temperature Pulse Rate 82 Respiratory Rate 17 Blood Pressure 129/61 Pulse Oximetry 90 L Oxygen Delivery Method BiPAP Fraction of Inspired Oxygen 06/15/23 15:06 06/15/23 15:00 06/15/23 16:00 Temperature 96.6 F L Pulse Rate 86 Respiratory Rate 31 H Blood Pressure 135/86 Pulse Oximetry 90 L Oxygen Delivery Method Fraction of Inspired Oxygen 60 06/15/23 16:00 06/15/23 17:00 06/15/23 17:04 Temperature Pulse Rate 87 92 H 90 Respiratory Rate 21 30 H 20 Blood Pressure Pulse Oximetry 88 L 88 L 89 L Oxygen Delivery Method Fraction of Inspired Oxygen 06/15/23 17:04 06/15/23 17:58 06/15/23 18:00 Temperature Pulse Rate Respiratory Rate Blood Pressure 140/63 140/63 Pulse Oximetry Oxygen Delivery Method BiPAP Fraction of Inspired Oxygen 60 Fraction of Inspired Oxygen 60 SaO2/FiO2 Ratio 167 Oxygen Delivery Method BiPAP Oxygen Flow Rate 11 Narrative Exam Narrative: General:?no acute distress Lungs:? poor air movement bilaterally Cardio:regular rate and rhythm, no murmurs Extremities: No edema or joint effusions. No cyanosis or clubbing. Objective Labs 06/15/23 02:07 06/15/23 05:53 Labs: Laboratory Results - last 24 hr 06/15/23 06/15/23 06/15/23 00:54 01:52 02:07 WBC 5.3 RBC 3.40 L Hgb 13.2 Hct 38.6 MCV 113.3 H MCH 38.8 H MCHC 34.3 RDW 12.5 Plt Count 134 L ABG pH 7.42 ABG pCO2 52.4 H ABG pO2 50 L ABG HCO3 34 H ABG Total CO2 36 H ABG O2 Saturation 85 L* ABG Base Excess 9.0 H FiO2 55 Sodium Potassium Chloride Carbon Dioxide BUN Creatinine Estimated GFR BUN/Creatinine Ratio Glucose Calcium Magnesium Troponin I NT-Pro-B Natriuret Pep Vitamin B12 Folate Procalcitonin TSH Nasal Screen MRSA (PCR) Not detected 06/15/23 06/15/23 06/15/23 02:07 02:07 02:07 WBC RBC Hgb Hct MCV MCH MCHC RDW Plt Count ABG pH ABG pCO2 ABG pO2 ABG HCO3 ABG Total CO2 ABG O2 Saturation ABG Base Excess FiO2 Sodium 138 Potassium 4.3 Chloride 98 Carbon Dioxide 34 H BUN 28 H Creatinine 0.88 Estimated GFR > 60 BUN/Creatinine Ratio 31.8 H Glucose 159 H Calcium 9.3 Magnesium Troponin I < 0.012 NT-Pro-B Natriuret Pep 1020 H Vitamin B12 Folate Procalcitonin TSH Nasal Screen MRSA (PCR) 06/15/23 06/15/23 06/15/23 05:53 05:53 05:53 WBC RBC Hgb Hct MCV MCH MCHC RDW Plt Count ABG pH ABG pCO2 ABG pO2 ABG HCO3 ABG Total CO2 ABG O2 Saturation ABG Base Excess FiO2 Sodium Potassium Chloride Carbon Dioxide BUN Creatinine Estimated GFR BUN/Creatinine Ratio Glucose Calcium Magnesium Troponin I < 0.012 NT-Pro-B Natriuret Pep Vitamin B12 639 Folate 17.5 Procalcitonin TSH 1.50 Nasal Screen MRSA (PCR) 06/15/23 06/15/23 06/15/23 05:53 05:53 09:57 WBC RBC Hgb Hct MCV MCH MCHC RDW Plt Count ABG pH 7.40 ABG pCO2 61.3 H* ABG pO2 50 L ABG HCO3 38 H ABG Total CO2 39 H ABG O2 Saturation 83 L* ABG Base Excess 13.0 H FiO2 40 Sodium 135 L Potassium 3.9 Chloride 94 L Carbon Dioxide 35 H BUN 29 H Creatinine 0.94 Estimated GFR > 60 BUN/Creatinine Ratio 30.9 H Glucose 152 H Calcium 9.6 Magnesium 1.8 Troponin I NT-Pro-B Natriuret Pep Vitamin B12 Folate Procalcitonin 0.12 TSH Nasal Screen MRSA (PCR) 06/15/23 10:13 WBC RBC Hgb Hct MCV MCH MCHC RDW Plt Count ABG pH ABG pCO2 ABG pO2 ABG HCO3 ABG Total CO2 ABG O2 Saturation ABG Base Excess FiO2 Sodium Potassium Chloride Carbon Dioxide BUN Creatinine Estimated GFR BUN/Creatinine Ratio Glucose Calcium Magnesium 2.0 Troponin I NT-Pro-B Natriuret Pep Vitamin B12 Folate Procalcitonin TSH Nasal Screen MRSA (PCR) PFSH Medical History Brain aneurysm Chronic kidney disease COPD (chronic obstructive pulmonary disease) Duodenal ulcer perforation Erythrocytosis History of common carotid artery stent placement Hyperlipidemia Hypertension Primary hyperparathyroidism Smoker Surgical History History of appendectomy History of surgical procedure History of surgical procedure Hx of tonsillectomy Social History household members: spouse Smoking Status: Current every day smoker alcohol intake: current substance use type: does not use Assessment & Plan Assessment & Plan narrative: 1. Acute on chronic hypoxemic respiratory failure -workup shows possible multiple etiologies -she has known copd and poor air movement consistent with acute COPD flare -chest imaging shows pleural effusions -chest imaging also concerning for possible pneumonia -for now treat copd flare with steroids, nebs -for pleural effusions continue lasix -echo was ordered and showed preserved EF -for now pneumonia on antibiotics with zosyn -wean bipap as able, goal o2 >88% 2. HTN ?- continue home medications of amlodipine, losartan and metoprolol without change 3. DM type 2 -hold glipizide -insulin sliding scale ordered -possibility to have high blood sugars due to steroids -monitor glucose closely 4. PUD with prior perforation ?- continue home pantoprazole 40 mg ?- no NSAID use. 5. s/p lumbar fusion - ?- continue pain management per primary service ?- dvt ppx per primary service 6. hx of carotid stent ?- continue asa and plavix ok per surgery -continue statin Quality VTE Deep Vein Thrombosis/Pulmonary Embolism Present on Admission: No
--- NOTE | 2023-06-15 20:51 | PM.ICURNDS ---
- :: This patient was seen via real time interactive two-way audiovisual telecommunication. Note: Comfortable on BiPAP 16 rate/ 14/7/ 60%, no distress.
[2023-06-15] MEDS: ATORVASTATIN 20 MG TABLET 80 MG PO (21:00)
[2023-06-15] MEDS: PRAMIPEXOLE 0.25 MG TABLET PO (21:00)
[2023-06-15] MEDS: SENNOSIDES 8.6 MG TABLET 17.2 MG PO (21:00)
[2023-06-16] VITALS (50 sets, daily range): BP systolic 111–168; BP diastolic 54–93; PULSE 68–90; RESP 15–55; TEMP 31–37.2; O2SAT 77–97
[2023-06-16] MEDS: PIPERACILLIN/TAZO 3.375 GM in SODIUM CHLORIDE 0.9% 100 ML IV ×3 (02:09→17:37)
[2023-06-16] MEDS: HYDROMORPHONE 0.5 MG INJ IV (04:55)
[2023-06-16] MEDS: SODIUM CHLORIDE 0.9% FLUSH 10 ML IV ×3 (04:55→21:02)
[2023-06-16 05:10] LABS: Hematocrit 36.7 % (36-46); Hemoglobin 12.5 g/dL (12.0-16.0); Mean Corpuscular HGB Conc 34.2 % (30-36); Mean Corpuscular Hemoglobin 38.2 PG (26-34); Mean Corpuscular Volume 111.7 fL (80-100); Platelet Count 140 X10^3/uL (150-400); Red Blood Cell Count 3.29 X10^6/uL (4.0-5.2); Red Cell Distribution Width 12.6 % (11.6-14.8); White Blood Cell Count 4.9 X10^3/uL (4.5-11.0)
[2023-06-16] MEDS: INSULIN LISPRO 100 UNIT/ML 3ML VIAL SUBCUT ×3 (06:06→16:50)
[2023-06-16] MEDS: ALBUTEROL/IPRATROPIUM 3 ML AMPUL INH ×5 (07:24→23:55)
--- NOTE | 2023-06-16 08:31 | P.PN_ITS ---
Subjective Subjective Interval history: Patient required Bipap overnight. Able to intermittently wean to HFNC but then went back on Bipap. CXR shows bibasilar opacities. Exam Vital Signs (past 8 hours): - 06/16/23 01:00 06/16/23 01:00 06/16/23 02:00 Temperature Pulse Rate 80 79 Respiratory Rate 16 17 Blood Pressure 155/70 H Pulse Oximetry 95 95 Oxygen Delivery Method Fraction of Inspired Oxygen 06/16/23 02:00 06/16/23 02:05 06/16/23 02:00 Temperature Pulse Rate 77 Respiratory Rate 17 Blood Pressure 156/68 H Pulse Oximetry 96 Oxygen Delivery Method Fraction of Inspired Oxygen 60 06/16/23 03:00 06/16/23 03:00 06/16/23 03:03 Temperature Pulse Rate 80 79 Respiratory Rate 20 19 Blood Pressure 149/67 H Pulse Oximetry 96 96 Oxygen Delivery Method Fraction of Inspired Oxygen 06/16/23 03:56 06/16/23 04:00 06/16/23 04:00 Temperature 97.0 F L Pulse Rate 81 Respiratory Rate 17 Blood Pressure 168/78 H Pulse Oximetry 96 Oxygen Delivery Method BiPAP Fraction of Inspired Oxygen 06/16/23 04:23 06/16/23 04:23 06/16/23 04:26 Temperature Pulse Rate 77 75 Respiratory Rate 16 16 Blood Pressure 161/73 H Pulse Oximetry 96 97 Oxygen Delivery Method Fraction of Inspired Oxygen 06/16/23 05:44 06/16/23 05:07 06/16/23 05:07 Temperature Pulse Rate 79 Respiratory Rate 26 H Blood Pressure 132/62 Pulse Oximetry 94 Oxygen Delivery Method Fraction of Inspired Oxygen 60 06/16/23 06:04 06/16/23 06:04 06/16/23 06:07 Temperature Pulse Rate 78 75 Respiratory Rate 36 H 23 Blood Pressure 158/70 H Pulse Oximetry 95 94 Oxygen Delivery Method Fraction of Inspired Oxygen 06/16/23 07:24 06/16/23 07:26 06/16/23 07:31 Temperature Pulse Rate 78 79 Respiratory Rate 20 20 Blood Pressure 148/68 H 148/68 H Pulse Oximetry 92 91 Oxygen Delivery Method BiPAP Fraction of Inspired Oxygen 65 65 Fraction of Inspired Oxygen 65 SaO2/FiO2 Ratio 141 Oxygen Delivery Method BiPAP Oxygen Flow Rate 11 Narrative Exam Narrative: General:?no acute distress, on Bipap Lungs:? poor air movement bilaterally Cardio:regular rate and rhythm, no murmurs Extremities: No edema or joint effusions. No cyanosis or clubbing. Objective Labs 06/16/23 04:45 06/16/23 08:25 Labs: Laboratory Results - last 24 hr 06/15/23 06/15/23 06/15/23 00:54 05:53 05:53 WBC RBC Hgb Hct MCV MCH MCHC RDW Plt Count ABG pH 7.42 ABG pCO2 52.4 H ABG pO2 50 L ABG HCO3 34 H ABG Total CO2 36 H ABG O2 Saturation 85 L* ABG Base Excess 9.0 H FiO2 55 Sodium 135 L Potassium 3.9 Chloride 94 L Carbon Dioxide 35 H BUN 29 H Creatinine 0.94 Estimated GFR > 60 BUN/Creatinine Ratio 30.9 H Glucose 152 H Calcium 9.6 Magnesium 1.8 Procalcitonin 0.12 06/15/23 06/15/23 06/16/23 09:57 10:13 04:45 WBC 4.9 RBC 3.29 L Hgb 12.5 Hct 36.7 MCV 111.7 H MCH 38.2 H MCHC 34.2 RDW 12.6 Plt Count 140 L ABG pH 7.40 ABG pCO2 61.3 H* ABG pO2 50 L ABG HCO3 38 H ABG Total CO2 39 H ABG O2 Saturation 83 L* ABG Base Excess 13.0 H FiO2 40 Sodium Potassium Chloride Carbon Dioxide BUN Creatinine Estimated GFR BUN/Creatinine Ratio Glucose Calcium Magnesium 2.0 Procalcitonin PFSH Medical History Brain aneurysm Chronic kidney disease COPD (chronic obstructive pulmonary disease) Duodenal ulcer perforation Erythrocytosis History of common carotid artery stent placement Hyperlipidemia Hypertension Primary hyperparathyroidism Smoker Surgical History History of appendectomy History of surgical procedure History of surgical procedure Hx of tonsillectomy Social History household members: spouse Smoking Status: Current every day smoker alcohol intake: current substance use type: does not use Assessment & Plan Assessment & Plan narrative: 1. Acute on chronic hypoxemic respiratory failure -workup shows possible multiple etiologies -she has known copd and poor air movement consistent with acute COPD flare -chest imaging shows pleural effusions -chest imaging also concerning for possible pneumonia -for now treat copd flare with steroids, nebs -for pleural effusions continue lasix -echo was ordered and showed preserved EF -for now pneumonia on antibiotics with zosyn -wean bipap as able, goal O2 >88% -weaned to HFNC, but then after getting up patient desatted and had to go back on Bipap -teleICU started diamox BID 2. HTN ?- continue home medications of amlodipine, losartan and metoprolol without lyons ge 3. DM type 2 -hold glipizide -insulin sliding scale ordered -possibility to have high blood sugars due to steroids -monitor glucose closely 4. PUD with prior perforation ?- continue home pantoprazole 40 mg ?- no NSAID use. 5. s/p lumbar fusion - ?- continue pain management per primary service ?- dvt ppx per primary service 6. hx of carotid stent ?- continue asa and plavix ok per surgery - continue statin I spent a total of 35 minutes of critical care time on this patient's care today; this time is exclusive of procedural time. Dispo: ICU Quality VTE Deep Vein Thrombosis/Pulmonary Embolism Present on Admission: No
[2023-06-16] MEDS: AMLODIPINE 5 MG TABLET 10 MG PO (08:33)
[2023-06-16] MEDS: METOPROLOL ER 50 MG TABLET PO (08:33)
[2023-06-16] MEDS: GABAPENTIN 400 MG CAPSULE 800 MG PO ×2 (08:35→21:04)
[2023-06-16] MEDS: PANTOPRAZOLE DR 40 MG TABLET PO (08:35)
[2023-06-16] MEDS: methylPREDNISolone 125 MG/2 ML VIAL 60 MG IV (08:35)
[2023-06-16] MEDS: CLOPIDOGREL 75 MG TABLET PO (08:35)
[2023-06-16] MEDS: ASPIRIN EC 81 MG TABLET PO (08:35)
[2023-06-16] MEDS: DOCUSATE 100 MG CAPSULE PO ×2 (08:35→21:02)
[2023-06-16 09:22] LABS: BUN Creatinine Ratio 39.1 (6-22); Blood Urea Nitrogen 36 mg/dL (7-17); Calcium 9.4 mg/dL (8.4-10.2); Carbon Dioxide 39 mmol/L (22-32); Chloride 96 mmol/L (98-107); Estimated Glomerular Filt Rate > 60 mL/min (>60); Glucose 128 mg/dL (80-110); HEMOLYSIS 20 (0-50); Potassium 4.6 mmol/L (3.4-5.1); Sodium 137 mmol/L (137-145)
[2023-06-16] MEDS: OXYCODONE IR 5 MG TABLET PO ×3 (09:24→20:01)
[2023-06-16] MEDS: ENOXAPARIN 40 MG/0.4 ML SYRINGE SUBCUT (09:25)
[2023-06-16] MEDS: ACETAMINOPHEN 325 MG TABLET 650 MG PO ×2 (09:25→21:03)
[2023-06-16] MEDS: MAGNESIUM HYDROXIDE 30 ML UDC PO (09:25)
--- NOTE | 2023-06-16 09:40 | PT.IPTN ---
Current Diagnoses Type 2 diabetes mellitus without complications (06/11/23) Chronic obstructive pulmonary disease, unspecified (06/11/23) Acute and chronic respiratory failure with hypoxia (06/11/23) Chronic or unspecified duodenal ulcer with perforation (06/11/23) Spinal stenosis, lumbar region with neurogenic claudication (06/11/23) Postlaminectomy syndrome, not elsewhere classified (06/11/23) Other specified abnormal findings of blood chemistry (06/11/23) Surgery Performed Operation Date: 06/11/23 14:45 Actual Procedures p L3-4 TLIF - Javed Vallecillo MD Physical Therapy Treatment Note M2 PT-IP Current Condition Start: 06/12/23 13:00 Freq: NEEDED Status: Active Protocol: Document 06/12/23 13:00 AB (Rec: 06/12/23 13:28 AB [id number]) Physical Therapy Current Condition Current Condition Evaluation Date 06/12/23 Treatment Diagnosis s/p lumbar TLIF L3-L4 Onset Date 06/11/23 M3 PT-IP Subjective Start: 06/12/23 13:00 Freq: NEEDED Status: Active Protocol: Document 06/16/23 10:09 TS (Rec: 06/16/23 10:26 TS [id number]) Subjective Physical Therapy Visit Type Type Treatment Note Visit Start Time 09:40 Visit Stop Time 09:59 Total Visit Minutes 19 Number of POPULATION HEALTH COACH Visits 5 Physical Therapy Visit Comments Patient Comments Pt found in be resting on Hi- flow o2 40L/min 61% slo2, Spo2 86%. Pt was agreeable to PT. Therapy Pain Assessment Pain When Pain Assessed At Rest Pain Present Pain Present Pain Reported M4 PT-IP Mobility and Gait Start: 06/12/23 13:00 Freq: NEEDED Status: Active Protocol: Document 06/16/23 10:09 TS (Rec: 06/16/23 10:26 TS [id number]) PT-Bed Mobility Assessment Rolling Type of Rolling Log Rolling Level of Assist Minimal Assistance,1 Person Assistance Supine to Sit Supine to Sit Maximum Assistance,1 Person Assistance Scooting Scooting to Edge of Bed Moderate Assistance PT-Transfer Assessment Sit to and From Stand Sit to and from Stand Moderate Assistance,2 Person Assistance,Use of Upper Extremities Transfers Transfer Destination Chair Transfer Technique Stand Step Pivot Transfer Ability Level of Assist Moderate Assistance,2 Person Assistance,Use of Upper Extremities Comments Mobility Comments Pt recalled 1/3 spinal precautions prior to mobility( no bending). She performed logroll Deysi for LEs over EOB and for fully on R side. Supine to sit MaxA x1 for uprighting trunk, provided cues for BUE support pushing from bed, pt had some difficulty following directions, becomes distracted by lines. She scooted EOB with ModA x1, she had x1LOB in sitting, cued for BUE support on bed to maintain sitting balance. Stand step pivot transfer to chair w/FWW ModA x2 for balance and maintaining upright, had some buckling on R side. Pt was left in chair with nursing tending to needs. Gait Assessment Comments Gait Comments Stand step pivot transfer to chair. PT-Balance Assessment Sitting Balance and Reactions Static Sitting Balance Ability Fair Dynamic Sitting Balance Ability Poor Standing Balance and Reactions Static Standing Balance Ability Poor Dynamic Standing Balance Ability Poor Device Used FWW M5 PT-IP Objective Assessments Start: 06/12/23 13:00 Freq: NEEDED Status: Active Protocol: Document 06/12/23 13:00 AB (Rec: 06/12/23 13:28 AB [id number]) Orientation Orientation/Cognition Level of Alertness Alert Orientation Name,Age,Birthday,Month,Date, Year,Day of Week,Place, Situation Language Function Ability No Deficits Noted Safety Awareness Understands Safety Issues Memory Description No Deficits Noted Gross Range of Motion Upper Extremity ROM Assessment Within Functional Limits Lower Extremity ROM Assessment Within Functional Limits Strength Upper Extremity Strength Assessment Within Functional Limits Lower Extremity Strength Assessment Bilaterally Impaired M6 PT-IP Treatment Start: 06/12/23 13:00 Freq: NEEDED Status: Active Protocol: Document 06/16/23 10:09 TS (Rec: 06/16/23 10:26 TS [id number]) Physical Therapy Treatment Education Education Provided Precautions,Safety M7 PT-IP Assessment and Plan Start: 06/12/23 13:00 Freq: NEEDED Status: Active Protocol: Document 06/16/23 10:09 TS (Rec: 06/16/23 10:26 TS [id number]) PT Summary Assessment and Plan Potential Rehabilitation Potential Fair Summary Impairments Pain,ROM,Strength,Balance, Coordination,Bed Mobility, Transfers,Gait,Activity Tolerance Progress Towards Goals Slow Progress due to Pain,Slow Progress due to Medical Issues,Slow Progress due to Activity Tolerance Assessment Summary Celi continues to make slow progress with her mobility. She needs cues to recall spinal precautions, she recalled 1/3(no bending). She continues to require cues for logroll sequencing with Deysi. Sit to stands and step transfer to chair w/FWW she requires ModA x2 pa. Her balance is slightly improved with static standing and transfers this session. She continues to have some buckling but is less so than previous sessions. PT continues to recommend SNF when medically stable. Goals Bed Mobility Goal Independent Transfer Goal Standby Assistance,Front Wheeled Walker Gait Goal Standby Assistance,Front Wheel Walker Gait Distance 50 Other Goals Pt to recall 3/3 lumbar spine surgical precautions in order to improve her post operative outcomes and improve her safety. Days to Meet Goals 5 Frequency of Treatment Frequency Of Treatment Twice a Day Treatment Plan Physical Therapy Treatment Plan Bed Mobility Training,Transfer Training,Gait Training, Therapeutic Exercise,Balance Retraining,Post Op Education, Discharge Planning,Hot or Cold Pack,Neuromuscular Re-ed, Coordination Retraining,Manual Therapy Precautions Lumbar Precautions Log Roll,No Twisting,Limit Bending,Lifting Restriction of 10 lbs,Gait Belt above Incisional Area Other Precautions Fall risk Weight Bearing Status Weight Bearing Status Weight Bear as Tolerated Recommendations To Nursing Amount of Assist Needed PT/OT Assist Only Discharge Recommendations PT Discharge Recommendations SNF Rehab Equipment Needed for Home Before FWW Discharge Transportation Needs at Discharge Wheelchair/Cabulance,Stretcher /Ambulance
--- NOTE | 2023-06-16 09:42 | PM.PN.EICU ---
Subjective Subjective IF CAMERA ACTIVATED, patient seen via real-time interactive audiovisual communication: Camera activated Consent obtained for tele-clinical law professor care: Yes Patient Location: ICU Provider location (State): [place] Other participants/roles: hospitalist, RN Interval history: Patient Summary: 68 y.o. female with PMH of CKD, T2DM, PUD, HTN, and COPD? had L3-4 surgery for spinal stenosis w/ neurogenic claudication on 06/11/23. On 06/14/23 Pt? was transferred to ICU on for acute hypercapnic and hypoxic respiratory failure and placed on BIPAP 09/05 40%. 06/16: Pt. also given Lasix and patient Diuresed out 2.7 L net neg. She was tried off BPAP at 8 am but after 20 min patient had to go back on BIPAP because of work of breathing. Chest CT neg for PE but does show some findings suggestive of possible aspiration PNA. BIPAP FIO2 requirement increased from 40 to 60%. Zosyn started. Steroids also started. Recent events: Patient improved. She came off BIPAP to HFNC 40L 60% and is currently breathing comfortably on it with Pox of low 90 at rest but she easily gets winded and pox goes to high 80's with any exertion. Pt. is 1.3 L net neg in last 24 hours and HCO3 is 39 today. Current Medications Current Medications Medications: Home Medications acetaminophen 500 mg tablet 1,500 mg PO Q3H PRN Pain (Scale Score 1-3) 05/16/23 [History Confirmed 06/11/23] albuterol sulfate 90 mcg/actuation aerosol inhaler 2 puff inhalation Q4-6H PRN Dyspnea 05/16/23 [History Confirmed 06/11/23] amlodipine 10 mg tablet 10 mg PO DAILY 05/16/23 [History Confirmed 06/11/23] aspirin 81 mg capsule 81 mg PO DAILY 05/16/23 [History Confirmed 06/11/23] atorvastatin 80 mg tablet 80 mg PO DAILY 05/16/23 [History Confirmed 06/11/23] clopidogrel 75 mg tablet 75 mg PO DAILY 05/16/23 [History Confirmed 06/11/23] glipizide 2.5 mg tablet, extended release 24 hr 2.5 mg PO DAILY 05/16/23 [History Confirmed 06/11/23] losartan 25 mg tablet 25 mg PO DAILY 05/16/23 [History Confirmed 06/11/23] metoprolol succinate 50 mg tablet,extended release 24 hr 50 mg PO DAILY 05/16/23 [History Confirmed 06/11/23] pantoprazole 40 mg tablet,delayed release 40 mg PO DAILY 05/16/23 [History Confirmed 06/11/23] pramipexole 0.25 mg tablet 0.25 mg PO DAILY 05/16/23 [History Confirmed 06/11/23] gabapentin 400 mg capsule 800 mg PO BID 06/11/23 [History Confirmed 06/11/23] Visit Medications (administered) Generic Name Dose Route Start Last Admin Trade Name Freq PRN Reason Stop Dose Admin Acetaminophen 650 mg 06/11/23 18:50 06/16/23 09:25 Acetaminophen 325 Mg Tablet PO 650 mg Q6H PRN Administration Fever/Mild Pain (1-3) Albuterol/Ipratropium 3 ml 06/15/23 07:00 06/16/23 07:24 Albuterol/Ipratropium 3 Ml Ampul INH 3 ml [id number] ABA Administration Amlodipine Besylate 10 mg 06/12/23 09:00 06/16/23 08:33 Amlodipine 5 Mg Tablet PO 10 mg DAILY ABA Administration Aspirin 81 mg 06/15/23 09:45 06/16/23 08:35 Aspirin Ec 81 Mg Tablet PO 81 mg DAILY ABA Administration Atorvastatin Calcium 80 mg 06/13/23 21:00 06/15/23 21:00 Atorvastatin 20 Mg Tablet PO 80 mg BEDTIME ABA Administration Clopidogrel Bisulfate 75 mg 06/15/23 13:00 06/16/23 08:35 Clopidogrel 75 Mg Tablet PO 75 mg DAILY ABA Administration Docusate Sodium 100 mg 06/11/23 21:00 06/16/23 08:35 Docusate 100 Mg Capsule PO 100 mg BID ABA Administration Enoxaparin Sodium 40 mg 06/16/23 09:00 06/16/23 09:25 Enoxaparin 40 Mg/0.4 Ml Syringe SUBCUT 40 mg DAILY ABA Administration Gabapentin 800 mg 06/11/23 21:00 06/16/23 08:35 Gabapentin 400 Mg Capsule PO 800 mg BID ABA Administration Heparin Sodium (Porcine) 50 unit 06/15/23 21:00 06/16/23 08:40 Heparin Flush (Cl/Picc/Mid-Line) 50 Unit/5 Ml Syringe IV 50 unit BID ABA Administration Hydromorphone HCl 0.5 mg 06/11/23 18:50 06/16/23 04:55 Hydromorphone 0.5 Mg Inj IV 0.5 mg Q2H PRN Administration Pain, Severe (7-10) Piperacillin Sod/Tazobactam 100 mls @ 25 mls/hr 06/15/23 10:30 06/16/23 06:09 Sod 3.375 gm/ Sodium Chloride IV Infused Q8H ABA Infusion Insulin Human Lispro 0 unit 06/15/23 18:00 06/16/23 06:06 Insulin Lispro 100 Unit/Ml 3ml Vial SUBCUT 1 unit Q6HR ABA Administration Protocol Magnesium Hydroxide 30 ml 06/11/23 18:50 06/16/23 09:25 Magnesium Hydroxide 30 Ml Udc PO 30 ml DAILY PRN Administration Constipation Methylprednisolone 60 mg 06/15/23 10:40 06/16/23 08:35 Methylprednisolone 125 Mg/2 Ml Vial IV 60 mg DAILY ABA Administration Metoprolol Succinate 50 mg 06/12/23 09:00 06/16/23 08:33 Metoprolol Er 50 Mg Tablet PO 50 mg DAILY ABA Administration Oxycodone HCl 5 mg 06/13/23 13:21 06/16/23 09:24 Oxycodone Ir 5 Mg Tablet PO 5 mg Q3HR PRN Administration Pain, Moderate (4-6) Pantoprazole Sodium 40 mg 06/12/23 09:00 06/16/23 08:[address] 40 Mg Tablet PO 40 mg DAILY ABA Administration Polyethylene Glycol 17 gm 06/11/23 18:50 06/14/23 18:49 Polyethylene Glycol 3350 17 Gm Powd.Pack PO 17 gm DAILY PRN Administration Constipation Pramipexole Dihydrochloride 0.25 mg 06/12/23 21:00 06/15/23 21:00 Pramipexole 0.25 Mg Tablet PO 0.25 mg BEDTIME ABA Administration Sennosides 17.2 mg 06/11/23 21:00 06/15/23 21:00 Sennosides 8.6 Mg Tablet PO 17.2 mg BEDTIME ABA Administration Sodium Chloride 10 ml 06/15/23 02:59 06/16/23 04:55 Sodium Chloride 0.9% Flush IV 10 ml PRN PRN Administration Flush Sodium Chloride 10 ml 06/15/23 09:00 06/15/23 21:00 Sodium Chloride 0.9% Flush IV 10 ml BID ABA Administration Tramadol HCl 50 mg 06/14/23 11:05 06/14/23 20:31 Tramadol 50 Mg Tablet PO 50 mg TID PRN Administration Pain, Moderate (4-6) Objective Ventilator Parameters: Ventilator Settings FiO2 0.60 Labs 06/16/23 04:45 06/16/23 08:25 Labs: Laboratory Results - last 24 hr 06/15/23 06/15/23 06/15/23 00:54 05:53 05:53 WBC RBC Hgb Hct MCV MCH MCHC RDW Plt Count ABG pH 7.42 ABG pCO2 52.4 H ABG pO2 50 L ABG HCO3 34 H ABG Total CO2 36 H ABG O2 Saturation 85 L* ABG Base Excess 9.0 H FiO2 55 Sodium 135 L Potassium 3.9 Chloride 94 L Carbon Dioxide 35 H BUN 29 H Creatinine 0.94 Estimated GFR > 60 BUN/Creatinine Ratio 30.9 H Glucose 152 H Calcium 9.6 Magnesium 1.8 Procalcitonin 0.12 06/15/23 06/15/23 06/16/23 09:57 10:13 04:45 WBC 4.9 RBC 3.29 L Hgb 12.5 Hct 36.7 MCV 111.7 H MCH 38.2 H MCHC 34.2 RDW 12.6 Plt Count 140 L ABG pH 7.40 ABG pCO2 61.3 H* ABG pO2 50 L ABG HCO3 38 H ABG Total CO2 39 H ABG O2 Saturation 83 L* ABG Base Excess 13.0 H FiO2 40 Sodium Potassium Chloride Carbon Dioxide BUN Creatinine Estimated GFR BUN/Creatinine Ratio Glucose Calcium Magnesium 2.0 Procalcitonin 06/16/23 08:25 WBC RBC Hgb Hct MCV MCH MCHC RDW Plt Count ABG pH ABG pCO2 ABG pO2 ABG HCO3 ABG Total CO2 ABG O2 Saturation ABG Base Excess FiO2 Sodium 137 Potassium 4.6 Chloride 96 L Carbon Dioxide 39 H BUN 36 H Creatinine 0.92 Estimated GFR > 60 BUN/Creatinine Ratio 39.1 H Glucose 128 H Calcium 9.4 Magnesium Procalcitonin Exam Vital Signs (past 8 hours): - 06/16/23 02:00 06/16/23 02:00 06/16/23 02:05 Temperature Pulse Rate 79 77 Respiratory Rate 17 17 Blood Pressure 156/68 H Pulse Oximetry 95 96 Oxygen Delivery Method Fraction of Inspired Oxygen 06/16/23 02:00 06/16/23 03:00 06/16/23 03:00 Temperature Pulse Rate 80 Respiratory Rate 20 Blood Pressure 149/67 H Pulse Oximetry 96 Oxygen Delivery Method Fraction of Inspired Oxygen 60 06/16/23 03:03 06/16/23 03:56 06/16/23 04:00 Temperature Pulse Rate 79 81 Respiratory Rate 19 17 Blood Pressure Pulse Oximetry 96 96 Oxygen Delivery Method BiPAP Fraction of Inspired Oxygen 06/16/23 04:00 06/16/23 04:23 06/16/23 04:23 Temperature 97.0 F L Pulse Rate 77 Respiratory Rate 16 Blood Pressure 168/78 H 161/73 H Pulse Oximetry 96 Oxygen Delivery Method Fraction of Inspired Oxygen 06/16/23 04:26 06/16/23 05:44 06/16/23 05:07 Temperature Pulse Rate 75 79 Respiratory Rate 16 26 H Blood Pressure Pulse Oximetry 97 94 Oxygen Delivery Method Fraction of Inspired Oxygen 60 06/16/23 05:07 06/16/23 06:04 06/16/23 06:04 Temperature Pulse Rate 78 Respiratory Rate 36 H Blood Pressure 132/62 158/70 H Pulse Oximetry 95 Oxygen Delivery Method Fraction of Inspired Oxygen 06/16/23 06:07 06/16/23 07:24 06/16/23 07:26 Temperature Pulse Rate 75 78 Respiratory Rate 23 20 Blood Pressure 148/68 H Pulse Oximetry 94 92 Oxygen Delivery Method BiPAP Fraction of Inspired Oxygen 65 65 06/16/23 07:31 06/16/23 08:33 Temperature Pulse Rate 79 84 Respiratory Rate 20 Blood Pressure 148/68 H 132/61 Pulse Oximetry 91 Oxygen Delivery Method Fraction of Inspired Oxygen Fraction of Inspired Oxygen 65 SaO2/FiO2 Ratio 141 Oxygen Delivery Method BiPAP Oxygen Flow Rate 11 Narrative Exam Narrative: Patient seen over two way audio visual system. Pt. is awake, sitting up in bed, and breathing comfortably on [facility] Quality TeleICU VTE Deep Vein Thrombosis/Pulmonary Embolism Present on Admission: No Assessment & Plan Assessment & Plan narrative: Assessment: acute on chronic respiratory failure (hypercapnia and hypoxia) COPD exacerbation Aspiration PNA Pulm congestion T2DM Recent Spine surgery L3-L4 06/11/23 Plan [employer] CALL [employer] AGENT: currently not acute issues CV: currently hemodynamically stable Pulm: wean down HFNC as tolerated, BIPAP prn SOB - solumedrol 60 mg QD for a total of 4 days (plan to stop or wean after that depending on patient's COPD status) -kathy ID:f/u blood and sputum culture - Zosyn to cover for HCAP/aspiration PNA GI: advance diet as tolerated now that patient is improved and off BIPAP FEN/Renal: check Chem 7 and replace electrolytes as needed -will give dimox 250 mg PO BID x 2 given HC03 of 39 Endo: monitor BG q6H PPS: PPI, lovenox Code status: FULL CODE CCT spent 50 min
--- NOTE | 2023-06-16 10:25 | DI.RAD.S_ITS ---
PROCEDURE: XR CHEST 1V INDICATIONS: hypoxia TECHNIQUE: One view of the chest was acquired. COMPARISON: [facility], CR, XR CHEST 1V, 06/15/2023, 16:22. [facility], CR, XR CHEST 1V, 06/15/2023, 0:53. FINDINGS: Surgical changes and devices: None. Lungs and pleura: There are bibasilar opacities and small pleural effusions. Mediastinum: Heart size is normal. Bones and chest wall: Degenerative changes. IMPRESSION: Bibasilar opacities and small pleural effusions. Consider future imaging surveillance to assess for resolution. Dictated by: Jai Galloway M.D. on 06/16/2023 at 11:18 Approved by: Jai Galloway M.D. on 06/16/2023 at 11:19
--- NOTE | 2023-06-16 10:31 | CM.DPNOTE ---
CM team rcieved call from Mikki at [facility] [place]. They are following for post DC plan SNF. Patient remains on HFNC weaning BiPap, not ready for DC plan yet. CM team will reach out to [facility] SNF when medically ready for DC.
[2023-06-16] MEDS: acetaZOLAMIDE 250 MG TABLET PO ×2 (10:48→21:03)
--- NOTE | 2023-06-16 10:56 | PM.PNPO.1 ---
Subjective Subjective Date Patient Seen: 06/16/23 Time Patient Seen: 10:56 Interval history: status post L3-L4 fusion by Dr. Vallecillo June 11, 2023 Seen in the ICU today. Family at bedside. Sitting up was eating breakfast. Speaks in complete sentences. Was weaned down on and off on BiPAP this morning. States she is feeling somewhat better. Exam Vital Signs (past 8 hours): - 06/16/23 03:00 06/16/23 03:00 06/16/23 03:03 Temperature Pulse Rate 80 79 Respiratory Rate 20 19 Blood Pressure 149/67 H Pulse Oximetry 96 96 Oxygen Delivery Method Fraction of Inspired Oxygen 06/16/23 03:56 06/16/23 04:00 06/16/23 04:00 Temperature 97.0 F L Pulse Rate 81 Respiratory Rate 17 Blood Pressure 168/78 H Pulse Oximetry 96 Oxygen Delivery Method BiPAP Fraction of Inspired Oxygen 06/16/23 04:23 06/16/23 04:23 06/16/23 04:26 Temperature Pulse Rate 77 75 Respiratory Rate 16 16 Blood Pressure 161/73 H Pulse Oximetry 96 97 Oxygen Delivery Method Fraction of Inspired Oxygen 06/16/23 05:44 06/16/23 05:07 06/16/23 05:07 Temperature Pulse Rate 79 Respiratory Rate 26 H Blood Pressure 132/62 Pulse Oximetry 94 Oxygen Delivery Method Fraction of Inspired Oxygen 60 06/16/23 06:04 06/16/23 06:04 06/16/23 06:07 Temperature Pulse Rate 78 75 Respiratory Rate 36 H 23 Blood Pressure 158/70 H Pulse Oximetry 95 94 Oxygen Delivery Method Fraction of Inspired Oxygen 06/16/23 07:24 06/16/23 07:26 06/16/23 07:31 Temperature Pulse Rate 78 79 Respiratory Rate 20 20 Blood Pressure 148/68 H 148/68 H Pulse Oximetry 92 91 Oxygen Delivery Method BiPAP Fraction of Inspired Oxygen 65 65 06/16/23 08:33 06/16/23 10:36 06/16/23 10:44 Temperature Pulse Rate 84 79 Respiratory Rate 21 Blood Pressure 132/61 Pulse Oximetry 92 Oxygen Delivery Method BiPAP Fraction of Inspired Oxygen 100 100 06/16/23 09:30 Temperature Pulse Rate 87 Respiratory Rate Blood Pressure 120/78 Pulse Oximetry Oxygen Delivery Method Fraction of Inspired Oxygen Fraction of Inspired Oxygen 100 SaO2/FiO2 Ratio 92 Oxygen Delivery Method BiPAP Oxygen Flow Rate 11 Alert and oriented. No acute distress Heart regular rate and rhythm Breathing on BiPAP Speaking complete sentences Lumbar examination demonstrates dressing intact clean and dry.\ Ramos in place yellow urine Demonstrates dorsiflexion plantar flexion bilateral lower extremities. Sensation grossly intact Objective Labs 06/16/23 04:45 06/16/23 08:25 Labs: Laboratory Results - last 24 hr 06/15/23 06/15/23 06/16/23 00:54 10:13 04:45 WBC 4.9 RBC 3.29 L Hgb 12.5 Hct 36.7 MCV 111.7 H MCH 38.2 H MCHC 34.2 RDW 12.6 Plt Count 140 L ABG pH 7.42 ABG pCO2 52.4 H ABG pO2 50 L ABG HCO3 34 H ABG Total CO2 36 H ABG O2 Saturation 85 L* ABG Base Excess 9.0 H FiO2 55 Sodium Potassium Chloride Carbon Dioxide BUN Creatinine Estimated GFR BUN/Creatinine Ratio Glucose Calcium Magnesium 2.0 06/16/23 08:25 WBC RBC Hgb Hct MCV MCH MCHC RDW Plt Count ABG pH ABG pCO2 ABG pO2 ABG HCO3 ABG Total CO2 ABG O2 Saturation ABG Base Excess FiO2 Sodium 137 Potassium 4.6 Chloride 96 L Carbon Dioxide 39 H BUN 36 H Creatinine 0.92 Estimated GFR > 60 BUN/Creatinine Ratio 39.1 H Glucose 128 H Calcium 9.4 Magnesium PFSH Medical History Brain aneurysm Chronic kidney disease COPD (chronic obstructive pulmonary disease) Duodenal ulcer perforation Erythrocytosis History of common carotid artery stent placement Hyperlipidemia Hypertension Primary hyperparathyroidism Smoker Surgical History History of appendectomy History of surgical procedure History of surgical procedure Hx of tonsillectomy Social History household members: spouse Smoking Status: Current every day smoker alcohol intake: current substance use type: does not use Assessment & Plan Post-op Postoperative Procedures: Procedures Operation Date: 06/11/23 14:45 Actual Procedure Side Surgeon p L3-4 TLIF Javed Vallecillo MD Postoperative day: 5 Postoperative status narrative: Doing okay. Better today. Was transferred to ICU for respiratory failure. Weaning down on the BiPAP. Appreciate tele ICU and hospitalist management. Was started on steroids and antibiotics possible pneumonia Lumbar dressing is clean dry and intact. Postoperative plan narrative: Routine lumbar fusion postop with limited twisting and bending. Keep dressing clean dry and intact. Mobilize when able. Once mobilizing and fluid status appropriate for hospitalist until the ICU then can work on discontinuing the catheter. Chemical DVT prophylaxis started. Appreciate tele ICU and hospitalist assistance on this medically complex patient. Time Spent With Patient Time with patient: less than 15 minutes Quality VTE Deep Vein Thrombosis/Pulmonary Embolism Present on Admission: No
--- NOTE | 2023-06-16 12:15 | PT.IPTN ---
Current Diagnoses Type 2 diabetes mellitus without complications (06/11/23) Chronic obstructive pulmonary disease, unspecified (06/11/23) Acute and chronic respiratory failure with hypoxia (06/11/23) Chronic or unspecified duodenal ulcer with perforation (06/11/23) Spinal stenosis, lumbar region with neurogenic claudication (06/11/23) Postlaminectomy syndrome, not elsewhere classified (06/11/23) Other specified abnormal findings of blood chemistry (06/11/23) Surgery Performed Operation Date: 06/11/23 14:45 Actual Procedures p L3-4 TLIF - Javed Vallecillo MD Physical Therapy Treatment Note M2 PT-IP Current Condition Start: 06/12/23 13:00 Freq: NEEDED Status: Active Protocol: Document 06/12/23 13:00 AB (Rec: 06/12/23 13:28 AB [id number]) Physical Therapy Current Condition Current Condition Evaluation Date 06/12/23 Treatment Diagnosis s/p lumbar TLIF L3-L4 Onset Date 06/11/23 M3 PT-IP Subjective Start: 06/12/23 13:00 Freq: NEEDED Status: Active Protocol: Document 06/16/23 12:58 TS (Rec: 06/16/23 13:22 TS [id number]) Subjective Physical Therapy Visit Type Type Treatment Note Visit Start Time 12:15 Visit Stop Time 12:34 Total Visit Minutes 19 Number of TRANSFORMER MOLDER Visits 6 Physical Therapy Visit Comments Patient Comments Pt found up in chair, with BIPAP, pt reports pain in 5/10 , is agreeable to PT. Therapy Pain Assessment Pain When Pain Assessed At Rest Pain Present Pain Present Pain Reported Location Back Intensity 5 Scale Used Numeric (0 - 10) Description Acute,Shooting Pain Behaviors Wincing Pain Management Techniques Apply Cold,Modification of Treatment,Re-positioning, Timing of Activity with Medications M4 PT-IP Mobility and Gait Start: 06/12/23 13:00 Freq: NEEDED Status: Active Protocol: Document 06/16/23 12:58 TS (Rec: 06/16/23 13:22 TS [id number]) PT-Transfer Assessment Sit to and From Stand Sit to and from Stand Moderate Assistance,Maximum Assistance,1 Person Assistance ,Use of Upper Extremities Equipment Transfer Assistive Device Gait Belt,Front Wheeled Walker Comments Mobility Comments Sit to stand from chair x2 ModA, x1 MaxA, she requires cues for handplacment for pushing from arms. Pt had x1LOB standing up from chair, required ModA for balance correction. Pt ambulated 4x6' CGA/Deysi w/FWW, had x1LOB when stepping backwards to chair, required Deysi for correction. She recalled 2/3 spinal precautions(no lifting) at end of session. Gait Assessment Gait Gait Assistance Required: Contact Guard Assist,Minimum Assistance,1 Person Assist Distance (Feet) 24 Assistive Devices Assistive Device Front Wheeled Walker Orthotic/Prosthetic Devices or Brace: No Gait Deviations General Gait Pattern Antalgic,Decreased Stride Length,Decreased Feet Clearance,Step-to Gait,Wide Based Gait Factors Limiting Gait Function Factors Limiting Gait Function Decreased Activity Tolerance, Decreased Strength,Difficulty Following Directions,Limited Range of Motion,Poor Balance, Poor Safety Awareness, Respiratory Distress Comments Gait Comments See mobility comments PT-Balance Assessment Sitting Balance and Reactions Static Sitting Balance Ability Fair Dynamic Sitting Balance Ability Fair Standing Balance and Reactions Static Standing Balance Ability Fair Dynamic Standing Balance Ability Fair Device Used FWW M5 PT-IP Objective Assessments Start: 06/12/23 13:00 Freq: NEEDED Status: Active Protocol: Document 06/12/23 13:00 AB (Rec: 06/12/23 13:28 AB [id number]) Orientation Orientation/Cognition Level of Alertness Alert Orientation Name,Age,Birthday,Month,Date, Year,Day of Week,Place, Situation Language Function Ability No Deficits Noted Safety Awareness Understands Safety Issues Memory Description No Deficits Noted Gross Range of Motion Upper Extremity ROM Assessment Within Functional Limits Lower Extremity ROM Assessment Within Functional Limits Strength Upper Extremity Strength Assessment Within Functional Limits Lower Extremity Strength Assessment Bilaterally Impaired M6 PT-IP Treatment Start: 06/12/23 13:00 Freq: NEEDED Status: Active Protocol: Document 06/16/23 12:58 TS (Rec: 06/16/23 13:22 TS [id number]) Physical Therapy Treatment Education Education Provided Precautions,Safety M7 PT-IP Assessment and Plan Start: 06/12/23 13:00 Freq: NEEDED Status: Active Protocol: Document 06/16/23 12:58 TS (Rec: 06/16/23 13:22 TS [id number]) PT Summary Assessment and Plan Potential Rehabilitation Potential Fair Summary Impairments Pain,ROM,Strength,Balance, Coordination,Bed Mobility, Transfers,Gait,Activity Tolerance Progress Towards Goals Slow Progress due to Pain,Slow Progress due to Medical Issues,Slow Progress due to Activity Tolerance Assessment Summary Celi continues to make slow progress with her mobility. She performed sit to stand x3 from chair, x2ModA and x1MaxA w/FWW, she had x1LOB sitting up from chair requiring ModA for stability. She demonstrated some carryover of sit to stand technique with use of hands pushing from arms of chair on 3rd attempt. She progressed her gait to 4x6' CGA/Deysi, had x1 LOB stepping backwards to chair, required Deysi for balance. She recalled 2/3 spinal precautions this session, could not recall no lifting. She is making improvements with her strength and balance with decreased buckling of LEs. PT continues to recommend SNF to progress bed mobility, transfers and gait. Goals Bed Mobility Goal Independent Transfer Goal Standby Assistance,Front Wheeled Walker Gait Goal Standby Assistance,Front Wheel Walker Gait Distance 50 Other Goals Pt to recall 3/3 lumbar spine surgical precautions in order to improve her post operative outcomes and improve her safety. Days to Meet Goals 5 Frequency of Treatment Frequency Of Treatment Twice a Day Treatment Plan Physical Therapy Treatment Plan Bed Mobility Training,Transfer Training,Gait Training, Therapeutic Exercise,Balance Retraining,Post Op Education, Discharge Planning,Hot or Cold Pack,Neuromuscular Re-ed, Coordination Retraining,Manual Therapy Precautions Lumbar Precautions Log Roll,No Twisting,Limit Bending,Lifting Restriction of 10 lbs,Gait Belt above Incisional Area Other Precautions Fall risk Weight Bearing Status Weight Bearing Status Weight Bear as Tolerated Recommendations To Nursing Amount of Assist Needed 2 Person Assist Discharge Recommendations PT Discharge Recommendations SNF Rehab Equipment Needed for Home Before FWW Discharge Transportation Needs at Discharge Wheelchair/Cabulance
[2023-06-16 16:17] LABS: Fractionated Inspired Oxygen 100; HCO3 ABG 37 mmol/L (23-27); Oxygen Saturation ABG 90 % (95-100); PCO2 ABG 57.3 mmHg (35-45); PO2 ABG 60 mmHg (80-100); TCO2 ABG 39 mmol/L (23-27); pH ABG 7.42 (7.35-7.45)
--- NOTE | 2023-06-16 20:39 | P.ICUMDRN_ITS ---
- Date Patient Seen: 06/16/23 :: This patient was seen via real time interactive two-way audiovisual telecommunic ation. Note: Patient was transitioned to HFNC FiO2 75%. Diuresed and negative 2 liters. Cont titrating down FiO2. Enourage IS and seek early mobility as tolerated. D/w bedside RN.
[2023-06-16] MEDS: PRAMIPEXOLE 0.25 MG TABLET PO (21:02)
[2023-06-16] MEDS: SENNOSIDES 8.6 MG TABLET 17.2 MG PO (21:02)
[2023-06-16] MEDS: ATORVASTATIN 20 MG TABLET 80 MG PO (21:03)
[2023-06-17] VITALS (48 sets, daily range): BP systolic 108–162; BP diastolic 49–85; PULSE 55–89; RESP 12–48; TEMP 36.3–37; O2SAT 75–97
[2023-06-17] MEDS: HYDROMORPHONE 0.5 MG INJ IV (00:44)
[2023-06-17] MEDS: PIPERACILLIN/TAZO 3.375 GM in SODIUM CHLORIDE 0.9% 100 ML IV ×3 (02:30→17:54)
[2023-06-17] MEDS: OXYCODONE IR 5 MG TABLET PO ×4 (03:40→21:13)
[2023-06-17] MEDS: ACETAMINOPHEN 325 MG TABLET 650 MG PO ×3 (03:40→21:08)
[2023-06-17] MEDS: ALBUTEROL/IPRATROPIUM 3 ML AMPUL INH ×5 (07:43→22:10)
[2023-06-17] MEDS: polyethylene glycoL 3350 17 GM POWD.PACK PO (08:05)
[2023-06-17] MEDS: ASPIRIN EC 81 MG TABLET PO (08:05)
[2023-06-17] MEDS: ENOXAPARIN 40 MG/0.4 ML SYRINGE SUBCUT (08:05)
[2023-06-17] MEDS: TRAMADOL 50 MG TABLET PO ×2 (08:06→21:08)
[2023-06-17] MEDS: GABAPENTIN 400 MG CAPSULE 800 MG PO ×2 (08:06→21:07)
[2023-06-17] MEDS: AMLODIPINE 5 MG TABLET 10 MG PO (08:06)
[2023-06-17] MEDS: PANTOPRAZOLE DR 40 MG TABLET PO (08:07)
[2023-06-17] MEDS: DOCUSATE 100 MG CAPSULE PO (08:07)
[2023-06-17] MEDS: METOPROLOL ER 50 MG TABLET PO (08:07)
[2023-06-17] MEDS: CLOPIDOGREL 75 MG TABLET PO (08:07)
[2023-06-17] MEDS: methylPREDNISolone 125 MG/2 ML VIAL 60 MG IV (08:08)
--- NOTE | 2023-06-17 08:18 | PM.PN.1 ---
Subjective Subjective Interval history: Patient now on HFNC at 50% and 45L. Cr uptrended some. Patient has no complaints other than wanting to go home. Exam Vital Signs (past 8 hours): - 06/17/23 01:00 06/17/23 01:00 06/17/23 01:31 Pulse Rate 64 63 Respiratory Rate 13 13 Blood Pressure 108/55 L Pulse Oximetry 90 L 89 L Oxygen Delivery Method Oxygen Flow Rate 45 45 45 Fraction of Inspired Oxygen 06/17/23 02:00 06/17/23 02:00 06/17/23 03:00 Pulse Rate 61 60 Respiratory Rate 13 12 Blood Pressure 110/56 L Pulse Oximetry 88 L 93 Oxygen Delivery Method Oxygen Flow Rate 45 45 45 Fraction of Inspired Oxygen 06/17/23 03:00 06/17/23 03:17 06/17/23 04:00 Pulse Rate 60 60 Respiratory Rate 13 27 H Blood Pressure 116/55 L Pulse Oximetry 90 L 91 Oxygen Delivery Method Oxygen Flow Rate 45 45 45 Fraction of Inspired Oxygen 06/17/23 04:00 06/17/23 04:58 06/17/23 03:40 Pulse Rate 59 L 83 Respiratory Rate 22 20 Blood Pressure 116/55 L Pulse Oximetry 88 L 89 L Oxygen Delivery Method Oxygen Flow Rate 45 45 Fraction of Inspired Oxygen 06/17/23 03:45 06/17/23 05:00 06/17/23 05:00 Pulse Rate 58 L Respiratory Rate 17 Blood Pressure 129/61 Pulse Oximetry 88 L Oxygen Delivery Method Heated High Flow Oxygen Flow Rate 45 45 Fraction of Inspired Oxygen 06/17/23 06:00 06/17/23 06:00 06/17/23 06:30 Pulse Rate 57 L 57 L Respiratory Rate 17 13 Blood Pressure 128/62 Pulse Oximetry 91 95 Oxygen Delivery Method Oxygen Flow Rate 45 45 45 Fraction of Inspired Oxygen 06/17/23 07:43 06/17/23 07:49 06/17/23 08:07 Pulse Rate 80 80 63 Respiratory Rate 20 20 Blood Pressure 120/64 Pulse Oximetry 91 91 Oxygen Delivery Method Heated High Flow Oxygen Flow Rate 45 Fraction of Inspired Oxygen 60 Fraction of Inspired Oxygen 60 SaO2/FiO2 Ratio 151 Oxygen Delivery Method Heated High Flow Oxygen Flow Rate 45 Narrative Exam Narrative: General:?no acute distress, on HFNC Lungs:? poor air movement bilaterally Cardio:regular rate and rhythm, no murmurs Extremities: No edema or joint effusions. No cyanosis or clubbing. Objective Labs 06/17/23 08:43 06/17/23 08:43 Labs: Laboratory Results - last 24 hr 06/16/23 06/16/23 08:25 10:34 ABG pH 7.42 ABG pCO2 57.3 H ABG pO2 60 L ABG HCO3 37 H ABG Total CO2 39 H ABG O2 Saturation 90 L ABG Base Excess 12.0 H FiO2 100 Sodium 137 Potassium 4.6 Chloride 96 L Carbon Dioxide 39 H BUN 36 H Creatinine 0.92 Estimated GFR > 60 BUN/Creatinine Ratio 39.1 H Glucose 128 H Calcium 9.4 PFSH Medical History Brain aneurysm Chronic kidney disease COPD (chronic obstructive pulmonary disease) Duodenal ulcer perforation Erythrocytosis History of common carotid artery stent placement Hyperlipidemia Hypertension Primary hyperparathyroidism Smoker Surgical History History of appendectomy History of surgical procedure History of surgical procedure Hx of tonsillectomy Social History household members: spouse Smoking Status: Current every day smoker alcohol intake: current substance use type: does not use Assessment & Plan Assessment & Plan narrative: 1. Acute on chronic hypoxemic respiratory failure -workup shows possible multiple etiologies -she has known copd and poor air movement consistent with acute COPD flare -chest imaging shows pleural effusions -chest imaging also concerning for possible pneumonia -for now treat copd flare with steroids, nebs -for pleural effusions continue lasix -echo was ordered and showed preserved EF -for now pneumonia on antibiotics with zosyn -wean bipap as able, goal O2 >88% -weaned to HFNC -teleICU started diamox BID -start lasix IV due to effusions on CXR 2. HTN ?- continue home medications of amlodipine, losartan and metoprolol without change 3. DM type 2 -hold glipizide -insulin sliding scale ordered -possibility to have high blood sugars due to steroids -monitor glucose closely 4. PUD with prior perforation ?- continue home pantoprazole 40 mg ?- no NSAID use. 5. s/p lumbar fusion with Dr. Vallecillo ?- continue pain management per primary service ?- dvt ppx per primary service 6. hx of carotid stent ?- continue asa and plavix ok per surgery - continue statin I spent a total of 35 minutes of critical care time on this patient's care today; this time is exclusive of procedural time. Dispo: ICU Quality VTE Deep Vein Thrombosis/Pulmonary Embolism Present on Admission: No
--- NOTE | 2023-06-17 08:34 | PM.PN.EICU ---
Subjective Subjective IF CAMERA ACTIVATED, patient seen via real-time interactive audiovisual communication: Camera activated Consent obtained for tele-profile saw setup operator care: Yes Patient Location: ICU Provider location (State): [place] Other participants/roles: hospitalist, RN, RT Interval history: Patient Summary: Patient Summary: 68 y.o. female with PMH of CKD, T2DM, PUD, HTN, and COPD? had L3-4 surgery for spinal stenosis w/ neurogenic claudication on 06/11/23. On 06/14/23 Pt? was transferred to ICU on for acute hypercapnic and hypoxic respiratory failure and placed on BIPAP 09/05 40%. 06/15: Pt. also given Lasix and patient Diuresed out 2.7 L net neg. She was tried off BPAP at 8 am but after 20 min patient had to go back on BIPAP because of work of breathing. Chest CT neg for PE but does show some findings suggestive of possible aspiration PNA. BIPAP FIO2 requirement increased from 40 to 60%. Zosyn started.? Steroids also started.? 06/16: Patient improved. She came off BIPAP to HFNC 40L 60% for for a couple of hours but then decompensated when she was moved from bed ot chair and had to go back on BIPAP. Later that afternoon she tolerated going back to HFNC. Recent events: Patient remained off BIPAP and on HFNC even overnight. She is currently on HFNC 40L 60% with Pox of 96% after Poximeter was adjusted. Pt. is 1.1 L net neg in last 24 hours. Cr increased from 0.9 to 1.27. Current Medications Current Medications Medications: Home Medications acetaminophen 500 mg tablet 1,500 mg PO Q3H PRN Pain (Scale Score 1-3) 05/16/23 [History Confirmed 06/11/23] albuterol sulfate 90 mcg/actuation aerosol inhaler 2 puff inhalation Q4-6H PRN Dyspnea 05/16/23 [History Confirmed 06/11/23] amlodipine 10 mg tablet 10 mg PO DAILY 05/16/23 [History Confirmed 06/11/23] aspirin 81 mg capsule 81 mg PO DAILY 05/16/23 [History Confirmed 06/11/23] atorvastatin 80 mg tablet 80 mg PO DAILY 05/16/23 [History Confirmed 06/11/23] clopidogrel 75 mg tablet 75 mg PO DAILY 05/16/23 [History Confirmed 06/11/23] glipizide 2.5 mg tablet, extended release 24 hr 2.5 mg PO DAILY 05/16/23 [History Confirmed 06/11/23] losartan 25 mg tablet 25 mg PO DAILY 05/16/23 [History Confirmed 06/11/23] metoprolol succinate 50 mg tablet,extended release 24 hr 50 mg PO DAILY 05/16/23 [History Confirmed 06/11/23] pantoprazole 40 mg tablet,delayed release 40 mg PO DAILY 05/16/23 [History Confirmed 06/11/23] pramipexole 0.25 mg tablet 0.25 mg PO DAILY 05/16/23 [History Confirmed 06/11/23] gabapentin 400 mg capsule 800 mg PO BID 06/11/23 [History Confirmed 06/11/23] Visit Medications (administered) Generic Name Dose Route Start Last Admin Trade Name Freq PRN Reason Stop Dose Admin Acetaminophen 650 mg 06/11/23 18:50 06/17/23 03:40 Acetaminophen 325 Mg Tablet PO 650 mg Q6H PRN Administration Fever/Mild Pain (1-3) Albuterol/Ipratropium 3 ml 06/15/23 07:00 06/17/23 07:43 Albuterol/Ipratropium 3 Ml Ampul INH 3 ml [id number] ABA Administration Amlodipine Besylate 10 mg 06/12/23 09:00 06/17/23 08:06 Amlodipine 5 Mg Tablet PO 10 mg DAILY ABA Administration Aspirin 81 mg 06/15/23 09:45 06/17/23 08:05 Aspirin Ec 81 Mg Tablet PO 81 mg DAILY ABA Administration Atorvastatin Calcium 80 mg 06/13/23 21:00 06/16/23 21:03 Atorvastatin 20 Mg Tablet PO 80 mg BEDTIME ABA Administration Clopidogrel Bisulfate 75 mg 06/15/23 13:00 06/17/23 08:07 Clopidogrel 75 Mg Tablet PO 75 mg DAILY ABA Administration Docusate Sodium 100 mg 06/11/23 21:00 06/17/23 08:07 Docusate 100 Mg Capsule PO 100 mg BID ABA Administration Enoxaparin Sodium 40 mg 06/16/23 09:00 06/17/23 08:05 Enoxaparin 40 Mg/0.4 Ml Syringe SUBCUT 40 mg DAILY ABA Administration Gabapentin 800 mg 06/11/23 21:00 06/17/23 08:06 Gabapentin 400 Mg Capsule PO 800 mg BID ABA Administration Heparin Sodium (Porcine) 50 unit 06/15/23 21:00 06/16/23 21:02 Heparin Flush (Cl/Picc/Mid-Line) 50 Unit/5 Ml Syringe IV 50 unit BID ABA Administration Hydromorphone HCl 0.5 mg 06/11/23 18:50 06/17/23 00:44 Hydromorphone 0.5 Mg Inj IV 0.5 mg Q2H PRN Administration Pain, Severe (7-10) Piperacillin Sod/Tazobactam 100 mls @ 25 mls/hr 06/15/23 10:30 06/17/23 02:30 Sod 3.375 gm/ Sodium Chloride IV 25 mls/hr Q8H ABA Administration Insulin Human Lispro 0 unit 06/16/23 16:45 06/17/23 07:52 Insulin Lispro 100 Unit/Ml 3ml Vial SUBCUT Not Given ACHS [facility] Protocol Magnesium Hydroxide 30 ml 06/11/23 18:50 06/16/23 09:25 Magnesium Hydroxide 30 Ml Udc PO 30 ml DAILY PRN Administration Constipation Methylprednisolone 60 mg 06/15/23 10:40 06/17/23 08:08 Methylprednisolone 125 Mg/2 Ml Vial IV 06/18/23 09:01 60 mg DAILY ABA Administration Metoprolol Succinate 50 mg 06/12/23 09:00 06/17/23 08:07 Metoprolol Er 50 Mg Tablet PO 50 mg DAILY ABA Administration Oxycodone HCl 5 mg 06/13/23 13:21 06/17/23 03:40 Oxycodone Ir 5 Mg Tablet PO 5 mg Q3HR PRN Administration Pain, Moderate (4-6) Pantoprazole Sodium 40 mg 06/12/23 09:00 06/17/23 08:[address] 40 Mg Tablet PO 40 mg DAILY ABA Administration Polyethylene Glycol 17 gm 06/11/23 18:50 06/17/23 08:05 Polyethylene Glycol 3350 17 Gm Powd.Pack PO 17 gm DAILY PRN Administration Constipation Pramipexole Dihydrochloride 0.25 mg 06/12/23 21:00 06/16/23 21:02 Pramipexole 0.25 Mg Tablet PO 0.25 mg BEDTIME ABA Administration Sennosides 17.2 mg 06/11/23 21:00 06/16/23 21:02 Sennosides 8.6 Mg Tablet PO 17.2 mg BEDTIME ABA Administration Sodium Chloride 10 ml 06/15/23 02:59 06/16/23 04:55 Sodium Chloride 0.9% Flush IV 10 ml PRN PRN Administration Flush Sodium Chloride 10 ml 06/15/23 09:00 06/16/23 21:02 Sodium Chloride 0.9% Flush IV 10 ml BID ABA Administration Tramadol HCl 50 mg 06/14/23 11:05 06/17/23 08:06 Tramadol 50 Mg Tablet PO 50 mg TID PRN Administration Pain, Moderate (4-6) Objective Ventilator Parameters: Ventilator Settings FiO2 0.62 Labs 06/17/23 08:43 06/17/23 08:43 Labs: Laboratory Results - last 24 hr 06/16/23 06/16/23 08:25 10:34 ABG pH 7.42 ABG pCO2 57.3 H ABG pO2 60 L ABG HCO3 37 H ABG Total CO2 39 H ABG O2 Saturation 90 L ABG Base Excess 12.0 H FiO2 100 Sodium 137 Potassium 4.6 Chloride 96 L Carbon Dioxide 39 H BUN 36 H Creatinine 0.92 Estimated GFR > 60 BUN/Creatinine Ratio 39.1 H Glucose 128 H Calcium 9.4 Exam Vital Signs (past 8 hours): - 06/17/23 01:00 06/17/23 01:00 06/17/23 01:31 Pulse Rate 64 63 Respiratory Rate 13 13 Blood Pressure 108/55 L Pulse Oximetry 90 L 89 L Oxygen Delivery Method Oxygen Flow Rate 45 45 45 Fraction of Inspired Oxygen 06/17/23 02:00 06/17/23 02:00 06/17/23 03:00 Pulse Rate 61 60 Respiratory Rate 13 12 Blood Pressure 110/56 L Pulse Oximetry 88 L 93 Oxygen Delivery Method Oxygen Flow Rate 45 45 45 Fraction of Inspired Oxygen 06/17/23 03:00 06/17/23 03:17 06/17/23 04:00 Pulse Rate 60 60 Respiratory Rate 13 27 H Blood Pressure 116/55 L Pulse Oximetry 90 L 91 Oxygen Delivery Method Oxygen Flow Rate 45 45 45 Fraction of Inspired Oxygen 06/17/23 04:00 06/17/23 04:58 06/17/23 03:40 Pulse Rate 59 L 83 Respiratory Rate 22 20 Blood Pressure 116/55 L Pulse Oximetry 88 L 89 L Oxygen Delivery Method Oxygen Flow Rate 45 45 Fraction of Inspired Oxygen 06/17/23 03:45 06/17/23 05:00 06/17/23 05:00 Pulse Rate 58 L Respiratory Rate 17 Blood Pressure 129/61 Pulse Oximetry 88 L Oxygen Delivery Method Heated High Flow Oxygen Flow Rate 45 45 Fraction of Inspired Oxygen 06/17/23 06:00 06/17/23 06:00 06/17/23 06:30 Pulse Rate 57 L 57 L Respiratory Rate 17 13 Blood Pressure 128/62 Pulse Oximetry 91 95 Oxygen Delivery Method Oxygen Flow Rate 45 45 45 Fraction of Inspired Oxygen 06/17/23 07:43 06/17/23 07:49 06/17/23 08:07 Pulse Rate 80 80 63 Respiratory Rate 20 20 Blood Pressure 120/64 Pulse Oximetry 91 91 Oxygen Delivery Method Heated High Flow Oxygen Flow Rate 45 Fraction of Inspired Oxygen 60 Fraction of Inspired Oxygen 60 SaO2/FiO2 Ratio 151 Oxygen Delivery Method Heated High Flow Oxygen Flow Rate 45 Narrative Exam Narrative: Patient seen over two way audio visual system. 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
--- NOTE | 2023-06-17 08:39 | PM.PNPO.1 ---
Subjective Subjective Date Patient Seen: 06/17/23 Time Patient Seen: 08:39 Interval history: status post L3-L4 TLIF Doing better today. Per the ICU nurse the plan is to continue breathing trials today. States she spent most of the day up and around. Plan to discontinue catheter Having some spasms Exam Vital Signs (past 8 hours): - 06/17/23 01:00 06/17/23 01:00 06/17/23 01:31 Pulse Rate 64 63 Respiratory Rate 13 13 Blood Pressure 108/55 L Pulse Oximetry 90 L 89 L Oxygen Delivery Method Oxygen Flow Rate 45 45 45 Fraction of Inspired Oxygen 06/17/23 02:00 06/17/23 02:00 06/17/23 03:00 Pulse Rate 61 60 Respiratory Rate 13 12 Blood Pressure 110/56 L Pulse Oximetry 88 L 93 Oxygen Delivery Method Oxygen Flow Rate 45 45 45 Fraction of Inspired Oxygen 06/17/23 03:00 06/17/23 03:17 06/17/23 04:00 Pulse Rate 60 60 Respiratory Rate 13 27 H Blood Pressure 116/55 L Pulse Oximetry 90 L 91 Oxygen Delivery Method Oxygen Flow Rate 45 45 45 Fraction of Inspired Oxygen 06/17/23 04:00 06/17/23 04:58 06/17/23 03:40 Pulse Rate 59 L 83 Respiratory Rate 22 20 Blood Pressure 116/55 L Pulse Oximetry 88 L 89 L Oxygen Delivery Method Oxygen Flow Rate 45 45 Fraction of Inspired Oxygen 06/17/23 03:45 06/17/23 05:00 06/17/23 05:00 Pulse Rate 58 L Respiratory Rate 17 Blood Pressure 129/61 Pulse Oximetry 88 L Oxygen Delivery Method Heated High Flow Oxygen Flow Rate 45 45 Fraction of Inspired Oxygen 06/17/23 06:00 06/17/23 06:00 06/17/23 06:30 Pulse Rate 57 L 57 L Respiratory Rate 17 13 Blood Pressure 128/62 Pulse Oximetry 91 95 Oxygen Delivery Method Oxygen Flow Rate 45 45 45 Fraction of Inspired Oxygen 06/17/23 07:43 06/17/23 07:49 06/17/23 08:07 Pulse Rate 80 80 63 Respiratory Rate 20 20 Blood Pressure 120/64 Pulse Oximetry 91 91 Oxygen Delivery Method Heated High Flow Oxygen Flow Rate 45 Fraction of Inspired Oxygen 60 06/17/23 08:37 Pulse Rate 67 Respiratory Rate 20 Blood Pressure 121/61 Pulse Oximetry 94 Oxygen Delivery Method Oxygen Flow Rate Fraction of Inspired Oxygen Fraction of Inspired Oxygen 60 SaO2/FiO2 Ratio 151 Oxygen Delivery Method Heated High Flow Oxygen Flow Rate 45 Narrative Exam Narrative: Alert oriented no acute distress Nathaniel Is able to roll and turn herself in bed 5/5 dorsiflexion plantar flexion sensation intact bilateral lower extremity Lumbar dressing is clean dry and intact Objective Labs 06/16/23 04:45 06/16/23 08:25 Labs: Laboratory Results - last 24 hr 06/16/23 06/16/23 08:25 10:34 ABG pH 7.42 ABG pCO2 57.3 H ABG pO2 60 L ABG HCO3 37 H ABG Total CO2 39 H ABG O2 Saturation 90 L ABG Base Excess 12.0 H FiO2 100 Sodium 137 Potassium 4.6 Chloride 96 L Carbon Dioxide 39 H BUN 36 H Creatinine 0.92 Estimated GFR > 60 BUN/Creatinine Ratio 39.1 H Glucose 128 H Calcium 9.4 PFSH Medical History Brain aneurysm Chronic kidney disease COPD (chronic obstructive pulmonary disease) Duodenal ulcer perforation Erythrocytosis History of common carotid artery stent placement Hyperlipidemia Hypertension Primary hyperparathyroidism Smoker Surgical History History of appendectomy History of surgical procedure History of surgical procedure Hx of tonsillectomy Social History household members: spouse Smoking Status: Current every day smoker alcohol intake: current substance use type: does not use Assessment & Plan Post-op Postoperative Procedures: Procedures Operation Date: 06/11/23 14:45 Actual Procedure Side Surgeon p L3-4 TLIF Javed Vallecillo MD Postoperative day: 6 Postoperative status narrative: Progressing continue the breathing trials mobilization, NORI Ramos when mobilizing well enough. Per PT recommendation sniff so far. We will continue to work with PT as she steps down in care. Still probably a day or 2 away from discharge but making progress. Remains ICU status this morning. Appreciate hospitalist and tele ICU care Postoperative plan narrative: on steroids and antibiotics possible pneumonia Lumbar dressing is clean dry and intact. Postoperative plan narrative: Routine lumbar fusion postop with limited twisting and bending. Keep dressing clean dry and intact. Mobilize when able. Chemical DVT prophylaxis Jen, SCDs Appreciate tele ICU and hospitalist assistance on this medically complex patient. Cyclobenzaprine added for spasms Time Spent With Patient Time with patient: less than 15 minutes Quality VTE Deep Vein Thrombosis/Pulmonary Embolism Present on Admission: No
[2023-06-17] MEDS: SODIUM CHLORIDE 0.9% FLUSH 10 ML IV ×2 (08:53→21:07)
[2023-06-17] MEDS: CYCLOBENZAPRINE 10 MG TABLET PO ×2 (08:53→18:49)
[2023-06-17] MEDS: FUROSEMIDE 40 MG/4 ML VIAL IV (08:53)
[2023-06-17 09:20] LABS: Add Manual Diff / Slide Review NO; Basophils Absolute Auto 0 /uL (0-100); Basophils Percent Auto 0.2 % (0-2); Eosinophils Absolute Auto 200 /uL (0-450); Eosinophils Percent Auto 3.4 % (2-4); Hemoglobin 12.4 g/dL (12.0-16.0); Lymphocytes Absolute Auto 1200 /uL (1100-4500); Lymphocytes Percent Auto 24.1 % (25-40); Mean Corpuscular HGB Conc 33.5 % (30-36); Mean Corpuscular Hemoglobin 38.2 PG (26-34); Mean Corpuscular Volume 114.1 fL (80-100); Monocytes Absolute Auto 300 /uL (0-900); Neutrophils Absolute Auto 3200 /uL (1500-7000); Neutrophils Percent Auto 65.3 % (50-75); Platelet Count 158 X10^3/uL (150-400); Red Blood Cell Count 3.24 X10^6/uL (4.0-5.2); Red Cell Distribution Width 12.5 % (11.6-14.8); White Blood Cell Count 4.9 X10^3/uL (4.5-11.0)
[2023-06-17 09:21] LABS: BUN Creatinine Ratio 23.6 (6-22); Blood Urea Nitrogen 30 mg/dL (7-17); Calcium 9.6 mg/dL (8.4-10.2); Carbon Dioxide 33 mmol/L (22-32); Chloride 100 mmol/L (98-107); Estimated Glomerular Filt Rate 45 mL/min (>60); Glucose 125 mg/dL (80-110); HEMOLYSIS < 15 (0-50); Potassium 4.2 mmol/L (3.4-5.1); Sodium 137 mmol/L (137-145)
[2023-06-17 09:31] LABS: Magnesium 2.2 mg/dL (1.6-2.3)
--- NOTE | 2023-06-17 10:29 | PT.IPTN ---
Current Diagnoses Type 2 diabetes mellitus without complications (06/11/23) Chronic obstructive pulmonary disease, unspecified (06/11/23) Acute and chronic respiratory failure with hypoxia (06/11/23) Chronic or unspecified duodenal ulcer with perforation (06/11/23) Spinal stenosis, lumbar region with neurogenic claudication (06/11/23) Postlaminectomy syndrome, not elsewhere classified (06/11/23) Other specified abnormal findings of blood chemistry (06/11/23) Surgery Performed Operation Date: 06/11/23 14:45 Actual Procedures p L3-4 TLIF - Javed Vallecillo MD Physical Therapy Treatment Note M2 PT-IP Current Condition Start: 06/12/23 13:00 Freq: NEEDED Status: Active Protocol: Document 06/12/23 13:00 AB (Rec: 06/12/23 13:28 AB [id number]) Physical Therapy Current Condition Current Condition Evaluation Date 06/12/23 Treatment Diagnosis s/p lumbar TLIF L3-L4 Onset Date 06/11/23 M3 PT-IP Subjective Start: 06/12/23 13:00 Freq: NEEDED Status: Active Protocol: Document 06/17/23 10:04 KS (Rec: 06/17/23 12:12 KS [id number]) Subjective Physical Therapy Visit Type Type Treatment Note Visit Start Time 10:04 Visit Stop Time 10:29 Total Visit Minutes 25 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 Therapy Pain Assessment Pain When Pain Assessed After Treatment Pain Present Pain Present Pain Reported Location Back Intensity 8 Scale Used Numeric (0 - 10) Description Acute,Shooting Pain Behaviors Facial Grimacing,Guarding, Holding Area,Moaning, Restlessness,Wincing Pain Management Techniques Elevation,Modification of Treatment,Re-positioning, Timing of Activity with Medications M4 PT-IP Mobility and Gait Start: 06/12/23 13:00 Freq: NEEDED Status: Active Protocol: Document 06/17/23 10:04 KS (Rec: 06/17/23 12:12 KS [id number]) PT-Bed Mobility Assessment Rolling Type of Rolling Log Rolling,Roll to Right Level of Assist Minimal Assistance,1 Person Assistance Supine to Sit Supine to Sit Minimal Assistance Scooting Scooting to Edge of Bed Minimal Assistance PT-Transfer Assessment Sit to and From Stand Sit to and from Stand Minimal Assistance,1 Person Assistance,Use of Upper Extremities Equipment Transfer Assistive Device Gait Belt,Front Wheeled Walker Transfers Transfer Destination Chair Transfer Technique Stand Step Pivot Transfer Ability Level of Assist Minimal Assistance,Moderate Assistance,1 Person Assistance ,Use of Upper Extremities Comments Mobility Comments Pt able to recall 3/3 spinal precautions this date. Min A for bed mobility, increased time to complete tasks due to pain. Min A for sit<>stand w/ FWW, pt ambulated ~6 ft from bed to chair and reported increased pain and fatigue. Reveiwed LE exercises including ankle pumps, glute sets, and quad sets. Pt left in chair w/ all needs in reach . Gait Assessment Gait Gait Assistance Required: Contact Guard Assist,Minimum Assistance,1 Person Assist Distance (Feet) 6 Assistive Devices Assistive Device Front Wheeled Walker Orthotic/Prosthetic Devices or Brace: No Gait Deviations General Gait Pattern Antalgic,Decreased Stride Length,Decreased Feet Clearance,Step-to Gait,Wide Based Gait Factors Limiting Gait Function Factors Limiting Gait Function Decreased Activity Tolerance, Decreased Strength,Difficulty Following Directions,Limited Range of Motion,Poor Balance, Poor Safety Awareness, Respiratory Distress Comments Gait Comments See mobility comments PT-Balance Assessment Sitting Balance and Reactions Static Sitting Balance Ability Fair Dynamic Sitting Balance Ability Fair Standing Balance and Reactions Static Standing Balance Ability Fair Dynamic Standing Balance Ability Fair Device Used FWW M5 PT-IP Objective Assessments Start: 06/12/23 13:00 Freq: NEEDED Status: Active Protocol: Document 06/12/23 13:00 AB (Rec: 06/12/23 13:28 AB [id number]) Orientation Orientation/Cognition Level of Alertness Alert Orientation Name,Age,Birthday,Month,Date, Year,Day of Week,Place, Situation Language Function Ability No Deficits Noted Safety Awareness Understands Safety Issues Memory Description No Deficits Noted Gross Range of Motion Upper Extremity ROM Assessment Within Functional Limits Lower Extremity ROM Assessment Within Functional Limits Strength Upper Extremity Strength Assessment Within Functional Limits Lower Extremity Strength Assessment Bilaterally Impaired M6 PT-IP Treatment Start: 06/12/23 13:00 Freq: NEEDED Status: Active Protocol: Document 06/17/23 10:04 KS (Rec: 06/17/23 12:12 KS [id number]) Physical Therapy Treatment Exercises Exercises Ankle Pumps,Gluteal Sets,Quad Sets Education Education Provided Precautions,Safety M7 PT-IP Assessment and Plan Start: 06/12/23 13:00 Freq: NEEDED Status: Active Protocol: Document 06/17/23 10:04 KS (Rec: 06/17/23 12:12 KS [id number]) PT Summary Assessment and Plan Potential Rehabilitation Potential Fair Summary Impairments Pain,ROM,Strength,Balance, Coordination,Bed Mobility, Transfers,Gait,Activity Tolerance Progress Towards Goals Slow Progress due to Pain,Slow Progress due to Medical Issues,Slow Progress due to Activity Tolerance Assessment Summary Pt showed progress w/ mobility this date, requiring less assistance for bed mobility and transfers but continues to be limited by significant pain, weakness, and low tolerance for activity. PT continues to recommend SNF to progress bed mobility, transfers and gait. Goals Bed Mobility Goal Independent Transfer Goal Standby Assistance,Front Wheeled Walker Gait Goal Standby Assistance,Front Wheel Walker Gait Distance 50 Other Goals Pt to recall 3/3 lumbar spine surgical precautions in order to improve her post operative outcomes and improve her safety. Days to Meet Goals 5 Frequency of Treatment Frequency Of Treatment Twice a Day Treatment Plan Physical Therapy Treatment Plan Bed Mobility Training,Transfer Training,Gait Training, Therapeutic Exercise,Balance Retraining,Post Op Education, Discharge Planning,Hot or Cold Pack,Neuromuscular Re-ed, Coordination Retraining,Manual Therapy Precautions Lumbar Precautions Log Roll,No Twisting,Limit Bending,Lifting Restriction of 10 lbs,Gait Belt above Incisional Area Other Precautions Fall risk Weight Bearing Status Weight Bearing Status Weight Bear as Tolerated Recommendations To Nursing Amount of Assist Needed 1 Person Assist Discharge Recommendations PT Discharge Recommendations SNF Rehab Equipment Needed for Home Before FWW Discharge Transportation Needs at Discharge Wheelchair/Cabulance
[2023-06-17] MEDS: SODIUM CHLORIDE 0.9% 1,000 ML 100 ML IV (11:00)
[2023-06-17] MEDS: INSULIN LISPRO 100 UNIT/ML 3ML VIAL SUBCUT ×2 (11:55→16:55)
[2023-06-17 12:47] LABS: Macrocytosis 1+
--- NOTE | 2023-06-17 13:25 | PT.IPTN ---
Current Diagnoses Type 2 diabetes mellitus without complications (06/11/23) Chronic obstructive pulmonary disease, unspecified (06/11/23) Acute and chronic respiratory failure with hypoxia (06/11/23) Chronic or unspecified duodenal ulcer with perforation (06/11/23) Spinal stenosis, lumbar region with neurogenic claudication (06/11/23) Postlaminectomy syndrome, not elsewhere classified (06/11/23) Other specified abnormal findings of blood chemistry (06/11/23) Surgery Performed Operation Date: 06/11/23 14:45 Actual Procedures p L3-4 TLIF - Javed Vallecillo MD Physical Therapy Treatment Note M2 PT-IP Current Condition Start: 06/12/23 13:00 Freq: NEEDED Status: Active Protocol: Document 06/12/23 13:00 AB (Rec: 06/12/23 13:28 AB [id number]) Physical Therapy Current Condition Current Condition Evaluation Date 06/12/23 Treatment Diagnosis s/p lumbar TLIF L3-L4 Onset Date 06/11/23 M3 PT-IP Subjective Start: 06/12/23 13:00 Freq: NEEDED Status: Active Protocol: Document 06/17/23 13:05 KS (Rec: 06/17/23 13:29 KS [id number]) Subjective Physical Therapy Visit Type Type Treatment Note Visit Start Time 13:05 Visit Stop Time 13:25 Total Visit Minutes 20 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 M4 PT-IP Mobility and Gait Start: 06/12/23 13:00 Freq: NEEDED Status: Active Protocol: Document 06/17/23 13:05 KS (Rec: 06/17/23 13:29 KS [id number]) PT-Transfer Assessment Sit to and From Stand Sit to and from Stand Minimal Assistance,Moderate Assistance,1 Person Assistance ,Use of Upper Extremities Equipment Transfer Assistive Device Gait Belt,Front Wheeled Walker Transfers Transfer Destination Chair,Bedside Commode Transfer Technique Stand Step Pivot Transfer Ability Level of Assist Minimal Assistance,Moderate Assistance,1 Person Assistance ,Use of Upper Extremities Comments Mobility Comments Pt in chair upon arrival, needing to use BSC. Pt required Mod A for sit<>stand and Min/Mod A for stand step pivot to BSC. After voiding, Pt requested to return to chair and had 1x lateral LOB requiring Mod A to recover. Pt performed 5x sit<>stands w/ FWW w/ marching in place. She then completed ankle pumps, quad sets, and glute sets. Left in chair w/ all needs in reach. Gait Assessment Gait Gait Assistance Required: Minimum Assistance,1 Person Assist Distance (Feet) 5 Assistive Devices Assistive Device Front Wheeled Walker Orthotic/Prosthetic Devices or Brace: No Gait Deviations General Gait Pattern Antalgic,Decreased Stride Length,Decreased Feet Clearance,Step-to Gait,Wide Based Gait Factors Limiting Gait Function Factors Limiting Gait Function Decreased Activity Tolerance, Decreased Strength,Difficulty Following Directions,Limited Range of Motion,Poor Balance, Poor Safety Awareness, Respiratory Distress Comments Gait Comments See mobility comments PT-Balance Assessment Sitting Balance and Reactions Static Sitting Balance Ability Fair Dynamic Sitting Balance Ability Fair Standing Balance and Reactions Static Standing Balance Ability Fair Dynamic Standing Balance Ability Fair Device Used FWW M5 PT-IP Objective Assessments Start: 06/12/23 13:00 Freq: NEEDED Status: Active Protocol: Document 06/12/23 13:00 AB (Rec: 06/12/23 13:28 AB [id number]) Orientation Orientation/Cognition Level of Alertness Alert Orientation Name,Age,Birthday,Month,Date, Year,Day of Week,Place, Situation Language Function Ability No Deficits Noted Safety Awareness Understands Safety Issues Memory Description No Deficits Noted Gross Range of Motion Upper Extremity ROM Assessment Within Functional Limits Lower Extremity ROM Assessment Within Functional Limits Strength Upper Extremity Strength Assessment Within Functional Limits Lower Extremity Strength Assessment Bilaterally Impaired M6 PT-IP Treatment Start: 06/12/23 13:00 Freq: NEEDED Status: Active Protocol: Document 06/17/23 13:05 HI (Rec: 06/17/23 13:29 HI [id number]) Physical Therapy Treatment Exercises Exercises Ankle Pumps,Gluteal Sets,Quad Sets Education Education Provided Precautions,Safety Other Treatments Other Treatment Performed sit<>stands M7 PT-IP Assessment and Plan Start: 06/12/23 13:00 Freq: NEEDED Status: Active Protocol: Document 06/17/23 13:05 HI (Rec: 06/17/23 13:29 HI [id number]) PT Summary Assessment and Plan Potential Rehabilitation Potential Fair Summary Impairments Pain,ROM,Strength,Balance, Coordination,Bed Mobility, Transfers,Gait,Activity Tolerance Progress Towards Goals Slow Progress due to Pain,Slow Progress due to Medical Issues,Slow Progress due to Activity Tolerance Assessment Summary Pt remains limited by low tolerance for activity and medical issues, but dayron sable to complete 5x sit<>stand w/ min to mod A w/ short bouts of marching in place and seated rest breaks between each repetition as well as minimal LE exercises to promote blood flow and strengthening. She had 1x LOB this date when transferring [place] [facility] [place] needing Mod A to recover . PT continues to recommend SNF to progress bed mobility, transfers and gait. Goals Bed Mobility Goal Independent Transfer Goal Standby Assistance,Front Wheeled Walker Gait Goal Standby Assistance,Front Wheel Walker Gait Distance 50 Other Goals Pt to recall 3/3 lumbar spine surgical precautions in order to improve her post operative outcomes and improve her safety. Days to Meet Goals 5 Frequency of Treatment Frequency Of Treatment Twice a Day Treatment Plan Physical Therapy Treatment Plan Bed Mobility Training,Transfer Training,Gait Training, Therapeutic Exercise,Balance Retraining,Post Op Education, Discharge Planning,Hot or Cold Pack,Neuromuscular Re-ed, Coordination Retraining,Manual Therapy Precautions Lumbar Precautions Log Roll,No Twisting,Limit Bending,Lifting Restriction of 10 lbs,Gait Belt above Incisional Area Other Precautions Fall risk Weight Bearing Status Weight Bearing Status Weight Bear as Tolerated Recommendations To Nursing Amount of Assist Needed 1 Person Assist Discharge Recommendations PT Discharge Recommendations SNF Rehab Equipment Needed for Home Before FWW Discharge Transportation Needs at Discharge Wheelchair/Cabulance
--- NOTE | 2023-06-17 14:24 | CM.DPC ---
DCP Continued: DRY KILN BURNER reviewed EMR. Per hospitalist in rounds, patient remains on high flow O2 and likely will be for awhile. Per nursing staff, anticipate another week here before d/c to SNF. DRY KILN BURNER entered room and reintroduced self and role. Patient sitting up in chair and accompanied by spouse. Confirm plan to d/c to [facility] when stable. Plan: d/c to [facility] when medically stable. Transport likely with facility. CM team will continue to follow closely. DARWIN Izaguirre
--- NOTE | 2023-06-17 19:52 | PM.ICURNDS ---
- Date Patient Seen: 06/17/23 Time Patient Seen: 19:52 :: This patient was seen via real time interactive two-way audiovisual telecommunication. Note: Currently improving slowly w/ diuresis and abx. On HFNC 40/45%. Encourage IS and seek early mobility. Cont diuresis as tolerated. D/w bedside RN.
[2023-06-17] MEDS: ATORVASTATIN 20 MG TABLET 80 MG PO (21:06)
[2023-06-17] MEDS: PRAMIPEXOLE 0.25 MG TABLET PO (21:07)
[2023-06-18] VITALS (54 sets, daily range): BP systolic 109–167; BP diastolic 55–96; PULSE 55–96; RESP 10–35; TEMP 36.6–37.2; O2SAT 75–99
[2023-06-18] MEDS: PIPERACILLIN/TAZO 3.375 GM in SODIUM CHLORIDE 0.9% 100 ML IV (02:33)
[2023-06-18] MEDS: CYCLOBENZAPRINE 10 MG TABLET PO ×2 (02:36→21:27)
[2023-06-18] MEDS: OXYCODONE IR 5 MG TABLET PO (02:36)
[2023-06-18] MEDS: ACETAMINOPHEN 325 MG TABLET 650 MG PO ×2 (02:36→21:28)
[2023-06-18] MEDS: HYDROMORPHONE 0.5 MG INJ IV ×2 (04:52)
[2023-06-18 05:08] LABS: Add Manual Diff / Slide Review SLIDE REVIEW; Basophils Absolute Auto 0 /uL (0-100); Basophils Percent Auto 0.8 % (0-2); Eosinophils Absolute Auto 200 /uL (0-450); Hematocrit 35.5 % (36-46); Hemoglobin 11.9 g/dL (12.0-16.0); Lymphocytes Absolute Auto 1200 /uL (1100-4500); Lymphocytes Percent Auto 29.1 % (25-40); Mean Corpuscular HGB Conc 33.6 % (30-36); Mean Corpuscular Hemoglobin 37.7 PG (26-34); Mean Corpuscular Volume 111.9 fL (80-100); Monocytes Absolute Auto 300 /uL (0-900); Monocytes Percent Auto 7.7 % (3-14); Neutrophils Absolute Auto 2300 /uL (1500-7000); Neutrophils Percent Auto 57.4 % (50-75); Platelet Count 146 X10^3/uL (150-400); Red Blood Cell Count 3.17 X10^6/uL (4.0-5.2); Red Cell Distribution Width 12.2 % (11.6-14.8)
[2023-06-18 05:45] LABS: Macrocytosis 2+
[2023-06-18 05:48] LABS: BUN Creatinine Ratio 25.6 (6-22); Blood Urea Nitrogen 32 mg/dL (7-17); Carbon Dioxide 34 mmol/L (22-32); Chloride 102 mmol/L (98-107); Estimated Glomerular Filt Rate 46 mL/min (>60); Glucose 133 mg/dL (80-110); HEMOLYSIS 27 (0-50); Potassium 3.8 mmol/L (3.4-5.1); Sodium 139 mmol/L (137-145)
[2023-06-18] MEDS: INSULIN LISPRO 100 UNIT/ML 3ML VIAL SUBCUT ×3 (07:54→16:53)
--- NOTE | 2023-06-18 08:14 | PT.IPTN ---
Current Diagnoses Type 2 diabetes mellitus without complications (06/11/23) Chronic obstructive pulmonary disease, unspecified (06/11/23) Acute and chronic respiratory failure with hypoxia (06/11/23) Chronic or unspecified duodenal ulcer with perforation (06/11/23) Spinal stenosis, lumbar region with neurogenic claudication (06/11/23) Postlaminectomy syndrome, not elsewhere classified (06/11/23) Other specified abnormal findings of blood chemistry (06/11/23) Surgery Performed Operation Date: 06/11/23 14:45 Actual Procedures p L3-4 TLIF - Javed Vallecillo MD Physical Therapy Treatment Note M2 PT-IP Current Condition Start: 06/12/23 13:00 Freq: NEEDED Status: Active Protocol: Document 06/18/23 09:24 SP (Rec: 06/18/23 09:45 SP [id number]) Physical Therapy Current Condition Current Condition Evaluation Date 06/12/23 Treatment Diagnosis s/p lumbar TLIF L3-L4 Onset Date 06/11/23 M3 PT-IP Subjective Start: 06/12/23 13:00 Freq: NEEDED Status: Active Protocol: Document 06/18/23 09:24 SP (Rec: 06/18/23 09:45 SP [id number]) Subjective Physical Therapy Visit Type Type Treatment Note Visit Start Time 07:50 Visit Stop Time 08:14 Total Visit Minutes [address] Wing arrived pre mobility. Nursing in room during tx assisting as 2nd person for pericare during BSC transfers. 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 Vitals: supine: L automated BP 142/63 HR 70, SaO2 89-90 % on 40 L high flow. Maintained 93% during mobility. M4 PT-IP Mobility and Gait Start: 06/12/23 13:00 Freq: NEEDED Status: Active Protocol: Document 06/18/23 09:24 SP (Rec: 06/18/23 09:45 SP [id number]) PT-Bed Mobility Assessment Rolling Type of Rolling Log Rolling,Roll to Right Level of Assist Standby Assistance Supine to Sit Supine to Sit Standby Assistance,Bedrails Scooting Scooting to Edge of Bed Contact Guard Assistance, Minimal Assistance PT-Transfer Assessment Sit to and From Stand Sit to and from Stand Minimal Assistance,1 Person Assistance,Use of Upper Extremities Equipment Transfer Assistive Device Gait Belt,Front Wheeled Walker Orthotic/Prosthetic Devices or Brace: No Transfers Transfer Destination Chair,Bedside Commode Transfer Technique Stand Step Pivot w/ FWW Transfer Ability Level of Assist Contact Guard Assistance, Minimal Assistance,1 Person Assistance,Use of Upper Extremities Comments Mobility Comments Pt did not report pain during mobility. SBA during Bed Mob, CG-Min A scoot to EOB extra time to complete. 5xSTS, cues redirection push from bed to come to stand Min A, SPT bed> BSC Max cues for keeping eyes open, spacial awareness pivot and backing up to BSC w/FWW positioning assist as needed. Pt reported felt wet, nursing/ SLAT BASKET TOP MAKER discovered she had BM soiled brief, patient was unaware. Nursing assisted pericare, assist required for standing stability via gait belt at trunk and brief mgt. Pt no success voiding. SPT BSC > chair w/ FWW, SLAT BASKET TOP MAKER managed HR monitor/O2/high flow tubing lines during mobility. Deysi for trunk stability with max cues for positioning during pivot 180 deg and back up fullly then reach back slow descent sit chair, over trunk sways during pivot safety assist required. SLAT BASKET TOP MAKER discussed with unsteadiness instanding mobility and decreased endurance standing activity recommending SNF for progress strength/increase independence in mobility, pt agreeable. Gait Assessment Gait Gait Assistance Required: Contact Guard Assist,Minimum Assistance,1 Person Assist Distance (Feet) 3 Assistive Devices Assistive Device Gait Belt,Front Wheeled Walker Orthotic/Prosthetic Devices or Brace: No Gait Deviations General Gait Pattern Antalgic,Decreased Stride Length,Decreased Feet Clearance,Flexed Trunk,Lateral Trunk Lean,Step-to Gait,Wide Based Gait Factors Limiting Gait Function Factors Limiting Gait Function Decreased Activity Tolerance, Decreased Strength,Difficulty Following Directions,Limited Range of Motion,Poor Balance, Poor Safety Awareness, Respiratory Distress Comments Gait Comments Cues for proximal to FWW with upright posture/ increase foot clearance and BLE/trunk positioning w/ Min A FWW support, Min A for stability trunk lateral sways during mobility at side of bed. PT-Balance Assessment Sitting Balance and Reactions Static Sitting Balance Ability Good Dynamic Sitting Balance Ability Fair Standing Balance and Reactions Static Standing Balance Ability Fair Dynamic Standing Balance Ability Poor Device Used FWW M5 PT-IP Objective Assessments Start: 06/12/23 13:00 Freq: NEEDED Status: Active Protocol: Document 06/12/23 13:00 AB (Rec: 06/12/23 13:28 AB [id number]) Orientation Orientation/Cognition Level of Alertness Alert Orientation Name,Age,Birthday,Month,Date, Year,Day of Week,Place, Situation Language Function Ability No Deficits Noted Safety Awareness Understands Safety Issues Memory Description No Deficits Noted Gross Range of Motion Upper Extremity ROM Assessment Within Functional Limits Lower Extremity ROM Assessment Within Functional Limits Strength Upper Extremity Strength Assessment Within Functional Limits Lower Extremity Strength Assessment Bilaterally Impaired M6 PT-IP Treatment Start: 06/12/23 13:00 Freq: NEEDED Status: Active Protocol: Document 06/18/23 09:24 SP (Rec: 06/18/23 09:45 SP [id number]) Physical Therapy Treatment Exercises Exercises Ankle Pumps,Heel Slides Education Education Provided Precautions,Safety Other Treatments Other Treatment Performed seated march x5 5xSTS Min A w/ FWW at EOB M7 PT-IP Assessment and Plan Start: 06/12/23 13:00 Freq: NEEDED Status: Active Protocol: Document 06/18/23 09:24 SP (Rec: 06/18/23 09:45 SP [id number]) PT Summary Assessment and Plan Potential Rehabilitation Potential Fair Summary Impairments Pain,ROM,Strength,Balance, Coordination,Bed Mobility, Transfers,Gait,Activity Tolerance Progress Towards Goals Slow Progress due to Pain,Slow Progress due to Medical Issues,Slow Progress due to Activity Tolerance Assessment Summary Pt remains limited by low tolerance for activity and medical issues, but wa sable to complete 5x sit<>stand w/ min A w/ short bouts of marching in place and seated rest breaks between each repetition as well as minimal LE exercises to promote blood flow and strengthening. She unsteady during SPT using FWW to BSC then to chair. PT continues to recommend SNF to progress bed mobility, transfers and gait, pt in agreement. Pt had decreased sensation of BM noted when come to standing. Goals Bed Mobility Goal Independent Transfer Goal Standby Assistance,Front Wheeled Walker Gait Goal Standby Assistance,Front Wheel Walker Gait Distance 50 Other Goals Pt to recall 3/3 lumbar spine surgical precautions in order to improve her post operative outcomes and improve her safety. Days to Meet Goals 5 Frequency of Treatment Frequency Of Treatment Twice a Day Treatment Plan Physical Therapy Treatment Plan Bed Mobility Training,Transfer Training,Gait Training, Therapeutic Exercise,Balance Retraining,Post Op Education, Discharge Planning,Hot or Cold Pack,Neuromuscular Re-ed, Coordination Retraining,Manual Therapy Other Recommendations and Next Treatment pre mob LE ther ex, 5 x STS, Focus transfers, increase distance gait w/ FWW. If safe trial 4WW (has at home) Precautions Lumbar Precautions Log Roll,No Twisting,Limit Bending,Lifting Restriction of 10 lbs,Gait Belt above Incisional Area Other Precautions Fall risk Weight Bearing Status Weight Bearing Status Weight Bear as Tolerated Recommendations To Nursing Amount of Assist Needed 1 Person Assist Discharge Recommendations PT Discharge Recommendations SNF Rehab Equipment Needed for Home Before FWW Discharge Transportation Needs at Discharge Wheelchair/Cabulance
[2023-06-18] MEDS: ALBUTEROL/IPRATROPIUM 3 ML AMPUL INH ×4 (08:20→22:10)
--- NOTE | 2023-06-18 08:27 | PM.PN.1 ---
Subjective Subjective Interval history: She feels she is improving. Less sensation of dyspnea. Less back pain. No new nausea or other issues. Exam Vital Signs (past 8 hours): - 06/18/23 00:54 06/18/23 01:01 06/18/23 01:01 Temperature Pulse Rate 55 L 58 L Respiratory Rate 20 28 H Blood Pressure 109/55 L Pulse Oximetry 92 89 L Oxygen Delivery Method Oxygen Flow Rate 45 45 45 Fraction of Inspired Oxygen 06/18/23 01:02 06/18/23 01:00 06/18/23 02:01 Temperature Pulse Rate 57 L 61 Respiratory Rate 23 21 Blood Pressure 123/55 L Pulse Oximetry 92 90 L Oxygen Delivery Method Oxygen Flow Rate 45 45 Fraction of Inspired Oxygen 06/18/23 02:01 06/18/23 02:07 06/18/23 02:00 Temperature Pulse Rate 59 L 56 L 58 L Respiratory Rate 24 10 L 18 Blood Pressure Pulse Oximetry 90 L 92 89 L Oxygen Delivery Method Oxygen Flow Rate 45 45 Fraction of Inspired Oxygen 06/18/23 02:45 06/18/23 03:00 06/18/23 03:00 Temperature Pulse Rate 66 56 L Respiratory Rate 16 18 Blood Pressure 128/62 Pulse Oximetry 94 92 Oxygen Delivery Method Oxygen Flow Rate 45 45 Fraction of Inspired Oxygen 06/18/23 03:02 06/18/23 03:00 06/18/23 04:00 Temperature Pulse Rate 58 L Respiratory Rate 13 Blood Pressure 132/60 Pulse Oximetry 95 Oxygen Delivery Method Heated High Flow Oxygen Flow Rate 45 Fraction of Inspired Oxygen 06/18/23 04:00 06/18/23 05:00 06/18/23 05:00 Temperature Pulse Rate 58 L 62 Respiratory Rate 16 13 Blood Pressure 145/66 H Pulse Oximetry 91 91 Oxygen Delivery Method Oxygen Flow Rate Fraction of Inspired Oxygen 06/18/23 06:00 06/18/23 06:01 06/18/23 06:01 Temperature Pulse Rate 64 65 Respiratory Rate 12 12 Blood Pressure 134/59 L Pulse Oximetry 90 L 90 L Oxygen Delivery Method Oxygen Flow Rate Fraction of Inspired Oxygen 06/18/23 07:00 06/18/23 07:00 06/18/23 07:59 Temperature 97.8 F Pulse Rate 67 75 Respiratory Rate 11 L 16 Blood Pressure 149/63 H Pulse Oximetry 87 L 91 Oxygen Delivery Method Oxygen Flow Rate Fraction of Inspired Oxygen 06/18/23 07:59 06/18/23 08:00 06/18/23 08:21 Temperature Pulse Rate 74 68 Respiratory Rate 18 20 Blood Pressure 142/63 H Pulse Oximetry 91 90 L Oxygen Delivery Method Heated High Flow Oxygen Flow Rate 40 Fraction of Inspired Oxygen 45 06/18/23 08:24 Temperature Pulse Rate 68 Respiratory Rate 18 Blood Pressure Pulse Oximetry 91 Oxygen Delivery Method Oxygen Flow Rate Fraction of Inspired Oxygen Fraction of Inspired Oxygen 45 SaO2/FiO2 Ratio 200 Oxygen Delivery Method Heated High Flow Oxygen Flow Rate 40 Narrative Exam Narrative: NAD, fluent speech. Oriented. Lungs CTA with normal effort and rate. HF O2. 40% 40 liters. CV RRR No MGR Abdomen Soft, NT and ND. 1+ bilateral leg edema. Objective Labs 06/18/23 04:45 06/18/23 05:30 Labs: Laboratory Results - last 24 hr 06/17/23 06/17/23 06/17/23 08:43 08:43 08:43 WBC 4.9 RBC 3.24 L Hgb 12.4 Hct 37.0 MCV 114.1 H MCH 38.2 H MCHC 33.5 RDW 12.5 Plt Count 158 Neut % (Auto) 65.3 Lymph % (Auto) 24.1 L [place] % (Auto) 7.0 Eos % (Auto) 3.4 Baso % (Auto) 0.2 Neut # (Auto) 3200 Lymph # (Auto) 1200 [place] # (Auto) 300 Eos # (Auto) 200 Baso # (Auto) 0 RBC Morphology See below Macrocytosis 1+ H Sodium 137 Potassium 4.2 Chloride 100 Carbon Dioxide 33 H BUN 30 H Creatinine 1.27 H Estimated GFR 45 L BUN/Creatinine Ratio 23.6 H Glucose 125 H Calcium 9.6 Magnesium 2.2 06/18/23 06/18/23 04:45 05:30 WBC 4.0 L RBC 3.17 L Hgb 11.9 L Hct 35.5 L MCV 111.9 H MCH 37.7 H MCHC 33.6 RDW 12.2 Plt Count 146 L Neut % (Auto) 57.4 Lymph % (Auto) 29.1 [place] % (Auto) 7.7 Eos % (Auto) 5.0 H Baso % (Auto) 0.8 Neut # (Auto) 2300 Lymph # (Auto) 1200 [place] # (Auto) 300 Eos # (Auto) 200 Baso # (Auto) 0 RBC Morphology See below Macrocytosis 2+ H Sodium 139 Potassium 3.8 Chloride 102 Carbon Dioxide 34 H BUN 32 H Creatinine 1.25 H Estimated GFR 46 L BUN/Creatinine Ratio 25.6 H Glucose 133 H Calcium 9.0 Magnesium PFSH Medical History Brain aneurysm Chronic kidney disease COPD (chronic obstructive pulmonary disease) Duodenal ulcer perforation Erythrocytosis History of common carotid artery stent placement Hyperlipidemia Hypertension Primary hyperparathyroidism Smoker Surgical History History of appendectomy History of surgical procedure History of surgical procedure Hx of tonsillectomy Social History household members: spouse Smoking Status: Current every day smoker alcohol intake: current substance use type: does not use Assessment & Plan Assessment & Plan narrative: 1. Acute on chronic hypoxemic respiratory failure, POA and improving. -Acute COPD flare, volume overload. -chest imaging reveals possible pneumonia -continue with steroids, nebs -continue lasix -echo showed preserved EF -for now pneumonia on antibiotics with zosyn (will do a 5 day course). -wean off HFNC as able. -teleICU started diamox BID -continue lasix 2. HTN, POA and stable. ?- continue home medications of amlodipine, losartan and metoprolol without change 3. DM type 2, POA and stable. -hold glipizide -insulin sliding scale ordered -monitor. 4. PUD with prior perforation, POA and stable. ?- continue home pantoprazole 40 mg ?- no NSAID use. 5. s/p lumbar fusion with Dr. Vallecillo, Improving. ?- PT, OOB ?- dvt ppx per primary service 6. Remote carotid stent, POA and stable. ?- continue asa and plavix ok per surgery ?- continue statin I spent a total of 35 minutes of critical care time on this patient's care today; this time is exclusive of procedural time. Quality VTE Deep Vein Thrombosis/Pulmonary Embolism Present on Admission: No
--- NOTE | 2023-06-18 08:48 | CM.DPC ---
Addendum entered by Julia Paige R.N. 06/18/23 15:41: Spoke to Jj at [facility], confirmed that they can accept. This would be a direct hospital admission. There would also need to be a doc to doc conversation. Dr. Wing was updated, he inquired if patient was aware. Let him know that this DC Plant Buyer mentioned it to spouse, attempted to let patient know, unclear if she understood. Dr. Wing will see how patient is in the morning, he is familiar with [facility]. Should her oxygen demands decrease overnight, may be able to go into a senior care facility versus [facility]. Addendum entered by Julia Paige R.N. 06/18/23 12:25: Did meet with patient and spouse, did mention that [facility] is a possibility, should she need continuous high flow. Did let spouse know that hospital is in [place], but they work with medically compromised patients. Patient was eating, minimum engagement in conversation. RT was just working with patient. Have not yet heard back from Jj at [facility] as of yet, but 23 page fax went through. Original Note: DCP Cont: KATLIN Miner, came by the office, just finished working with patient, patient up in her chair, unsteady. She is still currently on high flow oxygen, she is sitting up in chair. She is aware that skilled will be needed before going home. Plan is still [facility], but is still on the high flow. Did get in touch with [facility] in [place], for it is not clear as to how long that she will need to be on high flow. Spoke to Jj Valentin, she is the admission coordinator at [facility]. Her phone number is: [phone]. Described to her that patient had recent back surgery, but has been on high flow oxygen. Jj indicated that they have beds, patient would be appropriate, but need to confirm that she is in ICU for 3 days. Unclear if she has, can still fax over the referral, unclear if patient would consent to go, would need to discuss, but can send referral otherwise. Her fax number is: [phone]. Will go ahead and fax the referral. P: DCP to continue to follow and work on plan. Will fax referral over to [facility], will discuss further in team rounds to see how long she may need to be on high flow. Other plan is [facility], but not yet medically stable. Julia Paige, RN/Floor Space Allocator.
[2023-06-18] MEDS: TRAMADOL 50 MG TABLET PO ×2 (09:00→21:27)
--- NOTE | 2023-06-18 09:00 | PM.PNPO.1 ---
Subjective Subjective Date Patient Seen: 06/18/23 Time Patient Seen: 07:30 Interval history: Back pain is mild. states she was able to sit in bedside chair yesterday. Otherwise without complaints this morning. Exam Vital Signs (past 8 hours): - 06/18/23 01:01 06/18/23 01:01 06/18/23 01:02 Temperature Pulse Rate 58 L 57 L Respiratory Rate 28 H 23 Blood Pressure 109/55 L Pulse Oximetry 89 L 92 Oxygen Delivery Method Oxygen Flow Rate 45 45 45 Fraction of Inspired Oxygen 06/18/23 02:01 06/18/23 02:01 06/18/23 02:07 Temperature Pulse Rate 59 L 56 L Respiratory Rate 24 10 L Blood Pressure 123/55 L Pulse Oximetry 90 L 92 Oxygen Delivery Method Oxygen Flow Rate 45 45 45 Fraction of Inspired Oxygen 06/18/23 02:00 06/18/23 02:45 06/18/23 03:00 Temperature Pulse Rate 58 L 66 56 L Respiratory Rate 18 16 18 Blood Pressure Pulse Oximetry 89 L 94 92 Oxygen Delivery Method Oxygen Flow Rate 45 Fraction of Inspired Oxygen 06/18/23 03:00 06/18/23 03:02 06/18/23 03:00 Temperature Pulse Rate 58 L Respiratory Rate 13 Blood Pressure 128/62 Pulse Oximetry 95 Oxygen Delivery Method Heated High Flow Oxygen Flow Rate 45 45 Fraction of Inspired Oxygen 06/18/23 04:00 06/18/23 04:00 06/18/23 05:00 Temperature Pulse Rate 58 L Respiratory Rate 16 Blood Pressure 132/60 145/66 H Pulse Oximetry 91 Oxygen Delivery Method Oxygen Flow Rate Fraction of Inspired Oxygen 06/18/23 05:00 06/18/23 06:00 06/18/23 06:01 Temperature Pulse Rate 62 64 65 Respiratory Rate 13 12 12 Blood Pressure Pulse Oximetry 91 90 L 90 L Oxygen Delivery Method Oxygen Flow Rate Fraction of Inspired Oxygen 06/18/23 06:01 06/18/23 07:00 06/18/23 07:00 Temperature Pulse Rate 67 Respiratory Rate 11 L Blood Pressure 134/59 L 149/63 H Pulse Oximetry 87 L Oxygen Delivery Method Oxygen Flow Rate Fraction of Inspired Oxygen 06/18/23 07:59 06/18/23 07:59 06/18/23 08:00 Temperature 97.8 F Pulse Rate 75 74 Respiratory Rate 16 18 Blood Pressure 142/63 H Pulse Oximetry 91 91 Oxygen Delivery Method Oxygen Flow Rate Fraction of Inspired Oxygen 06/18/23 08:21 06/18/23 08:24 Temperature Pulse Rate 68 68 Respiratory Rate 20 18 Blood Pressure Pulse Oximetry 90 L 91 Oxygen Delivery Method Heated High Flow Oxygen Flow Rate 40 Fraction of Inspired Oxygen 45 Fraction of Inspired Oxygen 45 SaO2/FiO2 Ratio 200 Oxygen Delivery Method Heated High Flow Oxygen Flow Rate 40 Narrative Exam Narrative: 68-year-old female resting comfortably in bed in no apparent distress. Sensation grossly intact to light touch bilateral lower extremities. 5/5 strength bilateral lower extremities. Const General: cooperative Objective Labs 06/18/23 04:45 06/18/23 05:30 Labs: Laboratory Results - last 24 hr 06/17/23 06/17/23 06/17/23 08:43 08:43 08:43 WBC 4.9 RBC 3.24 L Hgb 12.4 Hct 37.0 MCV 114.1 H MCH 38.2 H MCHC 33.5 RDW 12.5 Plt Count 158 Neut % (Auto) 65.3 Lymph % (Auto) 24.1 L [place] % (Auto) 7.0 Eos % (Auto) 3.4 Baso % (Auto) 0.2 Neut # (Auto) 3200 Lymph # (Auto) 1200 [place] # (Auto) 300 Eos # (Auto) 200 Baso # (Auto) 0 RBC Morphology See below Macrocytosis 1+ H Sodium 137 Potassium 4.2 Chloride 100 Carbon Dioxide 33 H BUN 30 H Creatinine 1.27 H Estimated GFR 45 L BUN/Creatinine Ratio 23.6 H Glucose 125 H Calcium 9.6 Magnesium 2.2 06/18/23 06/18/23 04:45 05:30 WBC 4.0 L RBC 3.17 L Hgb 11.9 L Hct 35.5 L MCV 111.9 H MCH 37.7 H MCHC 33.6 RDW 12.2 Plt Count 146 L Neut % (Auto) 57.4 Lymph % (Auto) 29.1 [place] % (Auto) 7.7 Eos % (Auto) 5.0 H Baso % (Auto) 0.8 Neut # (Auto) 2300 Lymph # (Auto) 1200 [place] # (Auto) 300 Eos # (Auto) 200 Baso # (Auto) 0 RBC Morphology See below Macrocytosis 2+ H Sodium 139 Potassium 3.8 Chloride 102 Carbon Dioxide 34 H BUN 32 H Creatinine 1.25 H Estimated GFR 46 L BUN/Creatinine Ratio 25.6 H Glucose 133 H Calcium 9.0 Magnesium PFSH Medical History Brain aneurysm Chronic kidney disease COPD (chronic obstructive pulmonary disease) Duodenal ulcer perforation Erythrocytosis History of common carotid artery stent placement Hyperlipidemia Hypertension Primary hyperparathyroidism Smoker Surgical History History of appendectomy History of surgical procedure History of surgical procedure Hx of tonsillectomy Social History household members: spouse Smoking Status: Current every day smoker alcohol intake: current substance use type: does not use Assessment & Plan Post-op Postoperative Procedures: Procedures Operation Date: 06/11/23 14:45 Actual Procedure Side Surgeon p L3-4 TLIF Javed Vallecillo MD Postoperative day: 7 Postoperative status narrative: Improving Postoperative plan narrative: Mobilize with physical therapy, limit bending, twisting, lifting Interventionalist continues to follow for acute on chronic hypoxemic respiratory failure, POA and improving: Patient on Zosyn for possible pneumonia, wean off high-flow oxygen as able. Disposition, to be determined Quality VTE Deep Vein Thrombosis/Pulmonary Embolism Present on Admission: No
[2023-06-18] MEDS: AMLODIPINE 5 MG TABLET 10 MG PO (09:05)
[2023-06-18] MEDS: ASPIRIN EC 81 MG TABLET PO (09:05)
[2023-06-18] MEDS: ENOXAPARIN 40 MG/0.4 ML SYRINGE SUBCUT (09:05)
[2023-06-18] MEDS: CLOPIDOGREL 75 MG TABLET PO (09:05)
[2023-06-18] MEDS: METOPROLOL ER 50 MG TABLET PO (09:06)
[2023-06-18] MEDS: PANTOPRAZOLE DR 40 MG TABLET PO (09:06)
[2023-06-18] MEDS: GABAPENTIN 400 MG CAPSULE 800 MG PO ×2 (09:06→21:27)
[2023-06-18] MEDS: SODIUM CHLORIDE 0.9% FLUSH 10 ML IV ×2 (09:07→21:28)
--- NOTE | 2023-06-18 09:42 | PM.PN.EICU ---
Subjective Subjective IF CAMERA ACTIVATED, patient seen via real-time interactive audiovisual communication: Camera activated Date Patient Seen: 06/18/23 Consent obtained for tele-resident physician in radiology care: Yes Patient Location: ICU Provider location (State): [place] Other participants/roles: Bedside RN Interval history: No acute issues overnight. Diurese held due to NOEMI. Remains on HFNC 40/45%. Per RN report patient desaturate to the 70s on exertion. Current Medications Current Medications Medications: Home Medications acetaminophen 500 mg tablet 1,500 mg PO Q3H PRN Pain (Scale Score 1-3) 05/16/23 [History Confirmed 06/11/23] albuterol sulfate 90 mcg/actuation aerosol inhaler 2 puff inhalation Q4-6H PRN Dyspnea 05/16/23 [History Confirmed 06/11/23] amlodipine 10 mg tablet 10 mg PO DAILY 05/16/23 [History Confirmed 06/11/23] aspirin 81 mg capsule 81 mg PO DAILY 05/16/23 [History Confirmed 06/11/23] atorvastatin 80 mg tablet 80 mg PO DAILY 05/16/23 [History Confirmed 06/11/23] clopidogrel 75 mg tablet 75 mg PO DAILY 05/16/23 [History Confirmed 06/11/23] glipizide 2.5 mg tablet, extended release 24 hr 2.5 mg PO DAILY 05/16/23 [History Confirmed 06/11/23] losartan 25 mg tablet 25 mg PO DAILY 05/16/23 [History Confirmed 06/11/23] metoprolol succinate 50 mg tablet,extended release 24 hr 50 mg PO DAILY 05/16/23 [History Confirmed 06/11/23] pantoprazole 40 mg tablet,delayed release 40 mg PO DAILY 05/16/23 [History Confirmed 06/11/23] pramipexole 0.25 mg tablet 0.25 mg PO DAILY 05/16/23 [History Confirmed 06/11/23] gabapentin 400 mg capsule 800 mg PO BID 06/11/23 [History Confirmed 06/11/23] Visit Medications (administered) Generic Name Dose Route Start Last Admin Trade Name Freq PRN Reason Stop Dose Admin Acetaminophen 650 mg 06/11/23 18:50 06/18/23 02:36 Acetaminophen 325 Mg Tablet PO 650 mg Q6H PRN Administration Fever/Mild Pain (1-3) Albuterol/Ipratropium 3 ml 06/15/23 07:00 06/18/23 08:20 Albuterol/Ipratropium 3 Ml Ampul INH 3 ml [id number] [facility] Administration Amlodipine Besylate 10 mg 06/12/23 09:00 06/18/23 09:05 Amlodipine 5 Mg Tablet PO 10 mg DAILY [facility] Administration Aspirin 81 mg 06/15/23 09:45 06/18/23 09:05 Aspirin Ec 81 Mg Tablet PO 81 mg DAILY [facility] Administration Atorvastatin Calcium 80 mg 06/13/23 21:00 06/17/23 21:06 Atorvastatin 20 Mg Tablet PO 80 mg BEDTIME [facility] Administration Clopidogrel Bisulfate 75 mg 06/15/23 13:00 06/18/23 09:05 Clopidogrel 75 Mg Tablet PO 75 mg DAILY [facility] Administration Cyclobenzaprine HCl 10 mg 06/17/23 08:38 06/18/23 02:36 Cyclobenzaprine 10 Mg Tablet PO 10 mg Q8HR PRN Administration Spasms Docusate Sodium 100 mg 06/11/23 21:00 06/18/23 09:30 Docusate 100 Mg Capsule PO Not Given BID [facility] Enoxaparin Sodium 40 mg 06/16/23 09:00 06/18/23 09:05 Enoxaparin 40 Mg/0.4 Ml Syringe SUBCUT 40 mg DAILY [facility] Administration Gabapentin 800 mg 06/11/23 21:00 06/18/23 09:06 Gabapentin 400 Mg Capsule PO 800 mg BID [facility] Administration Heparin Sodium (Porcine) 50 unit 06/15/23 21:00 06/18/23 09:06 Heparin Flush (Cl/Picc/Mid-Line) 50 Unit/5 Ml Syringe IV 50 unit BID [facility] Administration Hydromorphone HCl 0.5 mg 06/11/23 18:50 06/18/23 04:52 Hydromorphone 0.5 Mg Inj IV 0.5 mg Q2H PRN Administration Pain, Severe (7-10) Piperacillin Sod/Tazobactam 100 mls @ 25 mls/hr 06/15/23 10:30 06/18/23 06:41 Sod 3.375 gm/ Sodium Chloride IV Infused Q8H [facility] Infusion Insulin Human Lispro 0 unit 06/16/23 16:45 06/18/23 07:54 Insulin Lispro 100 Unit/Ml 3ml Vial SUBCUT 1 unit ACHS [facility] Administration Protocol Magnesium Hydroxide 30 ml 06/11/23 18:50 06/16/23 09:25 Magnesium Hydroxide 30 Ml Udc PO 30 ml DAILY PRN Administration Constipation Methylprednisolone 30 mg 06/18/23 09:00 06/18/23 09:06 Methylprednisolone 40 Mg/Ml Vial IV 06/20/23 09:01 30 mg DAILY [facility] Administration Metoprolol Succinate 50 mg 06/12/23 09:00 06/18/23 09:06 Metoprolol Er 50 Mg Tablet PO 50 mg DAILY [facility] Administration Oxycodone HCl 5 mg 06/13/23 13:21 06/18/23 02:36 Oxycodone Ir 5 Mg Tablet PO 5 mg Q3HR PRN Administration Pain, Moderate (4-6) Pantoprazole Sodium 40 mg 06/12/23 09:00 06/18/23 09:[address] 40 Mg Tablet PO 40 mg DAILY [facility] Administration Polyethylene Glycol 17 gm 06/11/23 18:50 06/17/23 08:05 Polyethylene Glycol 3350 17 Gm Powd.Pack PO 17 gm DAILY PRN Administration Constipation Pramipexole Dihydrochloride 0.25 mg 06/12/23 21:00 06/17/23 21:07 Pramipexole 0.25 Mg Tablet PO 0.25 mg BEDTIME [facility] Administration Sennosides 17.2 mg 06/11/23 21:00 06/17/23 21:07 Sennosides 8.6 Mg Tablet PO Not Given BEDTIME [facility] Sodium Chloride 10 ml 06/15/23 02:59 06/16/23 04:55 Sodium Chloride 0.9% Flush IV 10 ml PRN PRN Administration Flush Sodium Chloride 10 ml 06/15/23 09:00 06/18/23 09:07 Sodium Chloride 0.9% Flush IV 10 ml BID [facility] Administration Tramadol HCl 50 mg 06/14/23 11:05 06/18/23 09:00 Tramadol 50 Mg Tablet PO 50 mg TID PRN Administration Pain, Moderate (4-6) Objective Ventilator Parameters: Ventilator Settings FiO2 0.43 Labs 06/18/23 04:45 06/18/23 05:30 Labs: Laboratory Results - last 24 hr 06/17/23 06/18/23 06/18/23 08:43 04:45 05:30 WBC 4.0 L RBC 3.17 L Hgb 11.9 L Hct 35.5 L MCV 111.9 H MCH 37.7 H MCHC 33.6 RDW 12.2 Plt Count 146 L Neut % (Auto) 57.4 Lymph % (Auto) 29.1 [place] % (Auto) 7.7 Eos % (Auto) 5.0 H Baso % (Auto) 0.8 Neut # (Auto) 2300 Lymph # (Auto) 1200 [place] # (Auto) 300 Eos # (Auto) 200 Baso # (Auto) 0 RBC Morphology See below See below Macrocytosis 1+ H 2+ H Sodium 139 Potassium 3.8 Chloride 102 Carbon Dioxide 34 H BUN 32 H Creatinine 1.25 H Estimated GFR 46 L BUN/Creatinine Ratio 25.6 H Glucose 133 H Calcium 9.0 Exam Vital Signs (past 8 hours): - 06/18/23 02:01 06/18/23 02:01 06/18/23 02:07 Temperature Pulse Rate 59 L 56 L Respiratory Rate 24 10 L Blood Pressure 123/55 L Pulse Oximetry 90 L 92 Oxygen Delivery Method Oxygen Flow Rate 45 45 45 Fraction of Inspired Oxygen 06/18/23 02:00 06/18/23 02:45 06/18/23 03:00 Temperature Pulse Rate 58 L 66 56 L Respiratory Rate 18 16 18 Blood Pressure Pulse Oximetry 89 L 94 92 Oxygen Delivery Method Oxygen Flow Rate 45 Fraction of Inspired Oxygen 06/18/23 03:00 06/18/23 03:02 06/18/23 03:00 Temperature Pulse Rate 58 L Respiratory Rate 13 Blood Pressure 128/62 Pulse Oximetry 95 Oxygen Delivery Method Heated High Flow Oxygen Flow Rate 45 45 Fraction of Inspired Oxygen 06/18/23 04:00 06/18/23 04:00 06/18/23 05:00 Temperature Pulse Rate 58 L Respiratory Rate 16 Blood Pressure 132/60 145/66 H Pulse Oximetry 91 Oxygen Delivery Method Oxygen Flow Rate Fraction of Inspired Oxygen 06/18/23 05:00 06/18/23 06:00 06/18/23 06:01 Temperature Pulse Rate 62 64 65 Respiratory Rate 13 12 12 Blood Pressure Pulse Oximetry 91 90 L 90 L Oxygen Delivery Method Oxygen Flow Rate Fraction of Inspired Oxygen 06/18/23 06:01 06/18/23 07:00 06/18/23 07:00 Temperature Pulse Rate 67 Respiratory Rate 11 L Blood Pressure 134/59 L 149/63 H Pulse Oximetry 87 L Oxygen Delivery Method Oxygen Flow Rate Fraction of Inspired Oxygen 06/18/23 07:59 06/18/23 07:59 06/18/23 08:00 Temperature 97.8 F Pulse Rate 75 74 Respiratory Rate 16 18 Blood Pressure 142/63 H Pulse Oximetry 91 91 Oxygen Delivery Method Oxygen Flow Rate Fraction of Inspired Oxygen 06/18/23 08:21 06/18/23 08:24 06/18/23 09:06 Temperature Pulse Rate 68 68 68 Respiratory Rate 20 18 Blood Pressure 142/63 H Pulse Oximetry 90 L 91 Oxygen Delivery Method Heated High Flow Oxygen Flow Rate 40 Fraction of Inspired Oxygen 45 06/18/23 09:00 Temperature Pulse Rate 68 Respiratory Rate 25 H Blood Pressure Pulse Oximetry 89 L Oxygen Delivery Method Oxygen Flow Rate Fraction of Inspired Oxygen Fraction of Inspired Oxygen 45 SaO2/FiO2 Ratio 200 Oxygen Delivery Method Heated High Flow Oxygen Flow Rate 40 Narrative Exam Narrative: Awake and following commands. On HFNC. Quality TeleICU VTE Deep Vein Thrombosis/Pulmonary Embolism Present on Admission: No Assessment & Plan Assessment & Plan narrative: NEURO: # Decondition -- Seek early mobility -- PT/OT RESP: # Acute hypoxemia respiratory failure -- Secondary to PNA w/ severe atelectasis -- On zosyn -- CTA PE study negative for PE -- Cx negative to date -- Encourage IS and seek early mobility -- HOB elevation -- Aspiration precaution -- Goal SpO2 > 88% CVS: # HTN -- On norvasc -- GOal SBP < 140 : # NOEMI -- Secondary to over diuresis -- Holding lasix -- Monitor I/O -- Avoid nephrotoxin agents -- Trend BMP ID: # Negative culture PNA -- ON zosyn -- Follow up cx ENDO: -- Goal BS < 180 D/w bedside RN.
--- NOTE | 2023-06-18 10:25 | OT.IP.TRT ---
Current Diagnoses Type 2 diabetes mellitus without complications (06/11/23) Chronic obstructive pulmonary disease, unspecified (06/11/23) Acute and chronic respiratory failure with hypoxia (06/11/23) Chronic or unspecified duodenal ulcer with perforation (06/11/23) Spinal stenosis, lumbar region with neurogenic claudication (06/11/23) Postlaminectomy syndrome, not elsewhere classified (06/11/23) Other specified abnormal findings of blood chemistry (06/11/23) Surgery Performed Operation Date: 06/11/23 14:45 Actual Procedures p L3-4 TLIF - Javed Vallecillo MD Occupational Therapy Treatment Note M2 OT-IP Current Condition Start: 06/12/23 13:21 Freq: Status: Active Protocol: Document 06/12/23 11:25 CCC (Rec: 06/12/23 13:55 [facility] [id number]) Occupational Therapy Current Condition Current Condition Evaluation Date 06/12/23 Treatment Diagnosis S/P L3-4 TLIF Diagnosis Onset Date 06/11/23 Post Operative Precautions Lumbar Precautions Log Roll,No Twisting,Limit Bending,Lifting Restriction of 10 lbs,Gait Belt above Incisional Area M3 OT- IP Subjective and Pain Start: 06/12/23 13:21 Freq: Status: Active Protocol: Document 06/18/23 10:27 CGR (Rec: 06/18/23 10:36 CGR [id number]) OT- Subjective Occupational Therapy Visit Type Type Progress Note Visit Start Time 10:10 Visit Stop Time 10:25 Total Visit Minutes 15 Notes Per pt, she is very fatigued and keeps falling asleep. OT Pain Assessment Pain When Pain Assessed At Rest Pain Present Pain Present Denied Pain M4 OT- IP ADL's Start: 06/12/23 13:21 Freq: Status: Active Protocol: Document 06/18/23 10:27 CGR (Rec: 06/18/23 10:36 CGR [id number]) OT KNO-Ifin-Mgkimrt Comments OT Self-Feeding Comments not meal time OT ADL-Grooming Comments OT Grooming Comments not performed OT ADL-Oral Care General Eval Oral Care Ability Contact Guard Assistance Areas of Assistance Brushing Teeth,Managing Dentures Comments Oral Care Comments Pt needed set up and was unable to maintain an upright standing posture instead leaning on the sink for support throughout activity. Pt with poor fine motor control. OT ADL-Dressing Comments OT Dressing Comments not performed OT ADL-Toileting Comments OT Toileting Comments not performed OT ADL-Bathing Comments OT Bathing Comments not performed M5 OT- IP IADL's Start: 06/12/23 13:21 Freq: Status: Active Protocol: Document 06/12/23 11:25 [facility] (Rec: 06/12/23 13:55 [facility] [id number]) OT-Instrumental Activities of Daily Living Deficits IADL Deficits Identified Deficits Home Safety Awareness Awareness of Need for Assistance at Home Decreased Awareness Home Safety Comments Pt is forgetful that she just had back surgery and assuming that she is able to do it on her own or that he is capable to assist. At this time would be best for her to assist with her needs as she is forgetful. Meal Preparation Meal Preparation Caregiver Provides Assist Front Load Trash Truck Driver Front Load Trash Truck Driver Caregiver Provides Assist M6 OT- IP Functional Cognition Start: 06/12/23 13:21 Freq: Status: Active Protocol: Document 06/14/23 09:00 [facility] (Rec: 06/14/23 11:13 [facility] [id number]) Cognitive Factors Limiting Selfcare Function Cognitive Ability Level of Alertness Alert,Drowsy Patient Orientation Name,Place,Situation Attention Span Ability Capable of Focused Attention, Capable of Sustained Attention Cognitive Comments Cognitive Assessment Comments Pt more alert and able to follow commands better for ADL and mobility needs. M7 OT- IP Mobility and Balance Start: 06/12/23 13:21 Freq: Status: Active Protocol: Document 06/18/23 10:27 CGR (Rec: 06/18/23 10:36 CGR [id number]) OT-Transfer Assessment Sit to and From Stand Sit to and from Stand Minimal Assistance,Moderate Assistance Transfers Transfer Ability Minimal Assistance,Moderate Assistance Technique Transfer Destination Chair Transfer Technique Stand Step Pivot Devices Transfer Assistive Devices Gait Belt,Front Wheeled Walker Comments Mobility Comments Pt ambulated to the sink from the chair with min to mod a with the use of the walker. Pt unable to keep upright posture standing at sink. OT- Gait Assessment Gait Gait Assistance Required: Minimum Assistance,Moderate Assistance,1 Person Assist Assistive Devices Assistive Device Gait Belt,Front Wheeled Walker Comments Gait Ability Comments with uncoordinated movements for mobility. OT- Balance Assessment Sitting Balance and Reactions Static Sitting Balance Ability Fair Dynamic Sitting Balance Ability Fair Standing Balance and Reactions Static Standing Balance Ability Poor Dynamic Standing Balance Ability Poor M8 OT- IP Objective Assessments Start: 06/12/23 13:21 Freq: Status: Active Protocol: Document 06/12/23 11:25 CCC (Rec: 06/12/23 13:55 CCC [id number]) OT Gross Range of Motion Upper Extremity Range of Motion Assessment Within Functional Limits OT Strength Upper Extremity Strength Assessment Within Functional Limits M9 OT- IP Assessment and Plan Start: 06/12/23 13:21 Freq: Status: Active Protocol: Document 06/18/23 10:27 CGR (Rec: 06/18/23 10:36 CGR [id number]) OT Summary Assessment and Plan Potential Rehabilitation Potential Good Analytic Complexity at Evaluation Low Summary OT Impairments Pain,Strength,Balance, Sensation,Functional Mobility, Grooming,Dressing,Toileting, Bathing,Toilet Transfers, Shower Transfers,Activity Tolerance Progress Towards Goals Progressing Toward Goals,Slow Progress due to Pain,Slow Progress due to Medical Issues Assessment Summary Pt tolerated ambulation to the sink but appears to take steps with slight knee buckling. Pt fatigued and unable to maintain an upright posture standing at sink, instead leaning on the counter for support. Pt removed only top dentures and cleaned those then returned to chair d/t fatigue. Pt left sitting up in chair at end of session, call button within reach and all needs at time met. vibration positioned on pt's L per respiratory therapist request. Goals Self-Feeding Goal Independent Grooming Goal Independent Dressing Goal Minimal Assistance Toileting Goal Standby Assistance Bathing Goal Minimal Assistance Toilet Transfer Goal Independent Shower Transfer Goal Minimal Assistance Days to Meet Goals 25 Frequency of Treatment Frequency Of Treatment Once a Day Treatment Plan OT Treatment Plan ADL Training,Functional Cognition Training,Functional Mobility,Patient/Family Education,Discharge Planning Other Treatment Recommendations and Next Pt to practice use of LB Treatment Focus dressgin equipment. Discharge Recommendations OT Discharge Recommendations SNF Rehab Transportation Needs at Discharge Wheelchair/Cabulance
--- NOTE | 2023-06-18 12:10 | PT-IP ANOTE ---
Pt finishing up a breathing treatment upon arrival, declined PT at this time wanting to eat lunch. She requested to come back later and will be more available to do PT. MACHINIST APPRENTICE WOOD notified PT Desire to follow back up for pm tx. Pt is due for 10th visit follow up.
--- NOTE | 2023-06-18 14:32 | PT.IPTN ---
Current Diagnoses Type 2 diabetes mellitus without complications (06/11/23) Chronic obstructive pulmonary disease, unspecified (06/11/23) Acute and chronic respiratory failure with hypoxia (06/11/23) Chronic or unspecified duodenal ulcer with perforation (06/11/23) Spinal stenosis, lumbar region with neurogenic claudication (06/11/23) Postlaminectomy syndrome, not elsewhere classified (06/11/23) Other specified abnormal findings of blood chemistry (06/11/23) Surgery Performed Operation Date: 06/11/23 14:45 Actual Procedures p L3-4 TLIF - Javed Vallecillo MD Physical Therapy Treatment Note M2 PT-IP Current Condition Start: 06/12/23 13:00 Freq: NEEDED Status: Active Protocol: Document 06/18/23 09:24 SP (Rec: 06/18/23 09:45 SP [id number]) Physical Therapy Current Condition Current Condition Evaluation Date 06/12/23 Treatment Diagnosis s/p lumbar TLIF L3-L4 Onset Date 06/11/23 M3 PT-IP Subjective Start: 06/12/23 13:00 Freq: NEEDED Status: Active Protocol: Document 06/18/23 14:32 AW (Rec: 06/18/23 15:01 AW [id number]) Subjective Physical Therapy Visit Type Type Treatment Note Visit Start Time 14:15 Visit Stop Time 14:32 Total Visit Minutes 17 Notes Spouse present Number of APPLIQUE SEWER Visits 0 Physical Therapy Visit Comments Patient Comments Pt is sitting up in the chair, very sleepy but willing to do PT. M4 PT-IP Mobility and Gait Start: 06/12/23 13:00 Freq: NEEDED Status: Active Protocol: Document 06/18/23 14:32 AW (Rec: 06/18/23 15:01 AW [id number]) PT-Transfer Assessment Sit to and From Stand Sit to and from Stand Minimal Assistance,1 Person Assistance,Use of Upper Extremities Equipment Transfer Assistive Device Gait Belt,Front Wheeled Walker Transfers Transfer Destination Chair Transfer Technique sit <> stand Transfer Ability Level of Assist Contact Guard Assistance, Minimal Assistance Comments Mobility Comments Pt is in the chair as PT arrives. BP 140/64 HR 70 SpO2 91% on 40 L/min HFNC with FiO2 43%. Settings were not changed during this encounter. Pt was able to stand an perform high knee stepping x 2 minutes. SpO2 drops to 80%. Pt sits and need 3 minutes to return to 90%. Subjectively, pt reports no significant SOB but does endorse fatigue. Pt agrees to trial Five Time Sit to Stand. First set 40.4 seconds with heavy UE pushoff. Second set 38.8 seconds. Pt agreed to remain sitting in the chair. Gait Assessment Comments Gait Comments Not performed this PM PT-Balance Assessment Sitting Balance and Reactions Static Sitting Balance Ability Fair Dynamic Sitting Balance Ability Fair Standing Balance and Reactions Static Standing Balance Ability Poor Dynamic Standing Balance Ability Fair Device Used FWW Comments Other Balance Tests/Deviations/Treatment Does not require hands on : assist during standing with FWW. Functional Assessments Functional Tests 5 Times Sit to Stand 38.8 M5 PT-IP Objective Assessments Start: 06/12/23 13:00 Freq: NEEDED Status: Active Protocol: Document 06/12/23 13:00 AB (Rec: 06/12/23 13:28 AB [id number]) Orientation Orientation/Cognition Level of Alertness Alert Orientation Name,Age,Birthday,Month,Date, Year,Day of Week,Place, Situation Language Function Ability No Deficits Noted Safety Awareness Understands Safety Issues Memory Description No Deficits Noted Gross Range of Motion Upper Extremity ROM Assessment Within Functional Limits Lower Extremity ROM Assessment Within Functional Limits Strength Upper Extremity Strength Assessment Within Functional Limits Lower Extremity Strength Assessment Bilaterally Impaired M6 PT-IP Treatment Start: 06/12/23 13:00 Freq: NEEDED Status: Active Protocol: Document 06/18/23 14:32 AW (Rec: 06/18/23 15:01 AW [id number]) Physical Therapy Treatment Education Education Provided Precautions,Safety Other Treatments Other Treatment Performed November x 2 min. 5XSTS with FWW from chair x 2. M7 PT-IP Assessment and Plan Start: 06/12/23 13:00 Freq: NEEDED Status: Active Protocol: Document 06/18/23 14:32 AW (Rec: 06/18/23 15:01 AW [id number]) PT Summary Assessment and Plan Potential Rehabilitation Potential Fair Summary Impairments Pain,ROM,Strength,Balance, Coordination,Bed Mobility, Transfers,Gait,Activity Tolerance Progress Towards Goals Slow Progress due to Pain,Slow Progress due to Medical Issues,Slow Progress due to Activity Tolerance Assessment Summary Pt on 40 L/min HFNC with FiO2 43% this date. She tolerates standing exercise with seated rest breaks. Subjective reports of SOB are less severe than apparent SpO2 drops to 80% would predict but pt continues to remain limited in her activity tolerance. PT recommendation remains for SNF rehab at discharge. Goals Bed Mobility Goal Independent Transfer Goal Standby Assistance,Front Wheeled Walker Gait Goal Standby Assistance,Front Wheel Walker Gait Distance 50 Other Goals Pt to recall 3/3 lumbar spine surgical precautions in order to improve her post operative outcomes and improve her safety. Days to Meet Goals 5 Frequency of Treatment Frequency Of Treatment Twice a Day Treatment Plan Physical Therapy Treatment Plan Bed Mobility Training,Transfer Training,Gait Training, Therapeutic Exercise,Balance Retraining,Post Op Education, Discharge Planning,Hot or Cold Pack,Neuromuscular Re-ed, Coordination Retraining,Manual Therapy Other Recommendations and Next Treatment pre mob LE ther ex, 5 x STS, Focus transfers, increase distance gait w/ FWW. If safe trial 4WW (has at home) Precautions Lumbar Precautions Log Roll,No Twisting,Limit Bending,Lifting Restriction of 10 lbs,Gait Belt above Incisional Area Other Precautions Fall risk Weight Bearing Status Weight Bearing Status Weight Bear as Tolerated Recommendations To Nursing Amount of Assist Needed 1 Person Assist Discharge Recommendations PT Discharge Recommendations SNF Rehab Equipment Needed for Home Before FWW Discharge
--- NOTE | 2023-06-18 18:55 | PC.NURSE ---
Ramos Cath removed at 0730, pt had not voided by 1700, bladder scan done approx 350-400cc in bladder, quick cath done and drained 400cc. Pt made comfortable in bed after cath done.
--- NOTE | 2023-06-18 20:25 | PM.ICURNDS ---
- Date Patient Seen: 06/18/23 Time Patient Seen: 20:25 :: This patient was seen via real time interactive two-way audiovisual telecommunication. Note: Remains on HFNC 40/40%. Currently on CPT with coarse BS. Added mucinex. D/w bedside RN.
[2023-06-18] MEDS: guaiFENesin ER 600 MG TAB PO (21:27)
[2023-06-18] MEDS: ATORVASTATIN 20 MG TABLET 80 MG PO (21:27)
[2023-06-18] MEDS: PRAMIPEXOLE 0.25 MG TABLET PO (21:27)
--- NOTE | 2023-06-18 22:40 | RT ---
PT was taken off HF at 2114, she was placed on 5L NC , sats are >92 and she is resting comfortably. will continue to monitor
[2023-06-19] VITALS (43 sets, daily range): BP systolic 120–180; BP diastolic 57–77; PULSE 60–86; RESP 14–44; TEMP 36.2–36.9; O2SAT 85–99
[2023-06-19] MEDS: CYCLOBENZAPRINE 10 MG TABLET PO ×2 (05:09→20:14)
[2023-06-19] MEDS: TRAMADOL 50 MG TABLET PO ×2 (05:09→20:14)
[2023-06-19] MEDS: ACETAMINOPHEN 325 MG TABLET 650 MG PO ×3 (05:09→20:14)
[2023-06-19 05:32] LABS: Basophils Absolute Auto 0 /uL (0-100); Basophils Percent Auto 0.5 % (0-2); Eosinophils Absolute Auto 100 /uL (0-450); Eosinophils Percent Auto 2.9 % (2-4); Hematocrit 37.1 % (36-46); Hemoglobin 12.6 g/dL (12.0-16.0); Lymphocytes Absolute Auto 1200 /uL (1100-4500); Lymphocytes Percent Auto 24.6 % (25-40); Mean Corpuscular HGB Conc 33.9 % (30-36); Mean Corpuscular Hemoglobin 37.8 PG (26-34); Mean Corpuscular Volume 111.3 fL (80-100); Monocytes Absolute Auto 300 /uL (0-900); Neutrophils Absolute Auto 3200 /uL (1500-7000); Platelet Count 163 X10^3/uL (150-400); Red Blood Cell Count 3.33 X10^6/uL (4.0-5.2); Red Cell Distribution Width 12.3 % (11.6-14.8); White Blood Cell Count 4.8 X10^3/uL (4.5-11.0)
[2023-06-19 05:40] LABS: Add Manual Diff / Slide Review SLIDE REVIEW
[2023-06-19 06:34] LABS: BUN Creatinine Ratio 22.9 (6-22); Blood Urea Nitrogen 24 mg/dL (7-17); Calcium 9.2 mg/dL (8.4-10.2); Carbon Dioxide 29 mmol/L (22-32); Chloride 102 mmol/L (98-107); Estimated Glomerular Filt Rate 57 mL/min (>60); Glucose 136 mg/dL (80-110); HEMOLYSIS < 15 (0-50); Potassium 3.6 mmol/L (3.4-5.1); Sodium 136 mmol/L (137-145)
[2023-06-19 07:03] LABS: Macrocytosis 2+
--- NOTE | 2023-06-19 07:32 | DI.RAD.S_ITS ---
PROCEDURE: XR CHEST 1V INDICATIONS: dyspnea TECHNIQUE: One view of the chest was acquired. COMPARISON: [facility], CR, XR CHEST 1V, 06/16/2023, 10:25. [facility], CR, XR CHEST 1V, 06/15/2023, 16:22. FINDINGS: Surgical changes and devices: Stent in the left neck. Lungs and pleura: Small bilateral pleural effusions, mildly increased on the left compared to prior. Adjacent atelectasis versus consolidation. Mediastinum: Mediastinal contours appear normal. Heart size is normal. Bones and chest wall: No suspicious bony lesions. Overlying soft tissues appear unremarkable. IMPRESSION: Small bilateral pleural effusions which appears mildly increased on the left with adjacent atelectasis versus consolidation. Dictated by: Bart Cota M.D. on 06/19/2023 at 8:27 Approved by: Bart Cota M.D. on 06/19/2023 at 8:28
[2023-06-19] MEDS: ALBUTEROL/IPRATROPIUM 3 ML AMPUL INH ×3 (08:09→19:49)
--- NOTE | 2023-06-19 08:15 | P.PN_ITS ---
Subjective Subjective Interval history: Feeling better today. Less dyspnea, and off HFO2. O2 NC 2 liters. No cough or chest pain. No leg weakness or numbness. Ramos out yesterday and replaced last noc for retention. Exam Vital Signs (past 8 hours): - 06/19/23 00:33 06/19/23 01:00 06/19/23 01:00 Temperature Pulse Rate 66 66 Respiratory Rate 17 15 Blood Pressure 173/77 H Pulse Oximetry 98 99 Oxygen Delivery Method Oxygen Flow Rate 4 4 4 06/19/23 01:14 06/19/23 02:00 06/19/23 02:00 Temperature Pulse Rate 65 64 Respiratory Rate 14 17 Blood Pressure 156/67 H Pulse Oximetry 99 96 Oxygen Delivery Method Oxygen Flow Rate 4 06/19/23 03:00 06/19/23 03:00 06/19/23 03:00 Temperature Pulse Rate 63 Respiratory Rate 27 H Blood Pressure 165/71 H Pulse Oximetry 96 Oxygen Delivery Method High Flow Nasal Cannula Oxygen Flow Rate 06/19/23 04:00 06/19/23 04:00 06/19/23 04:03 Temperature 97.2 F L Pulse Rate 63 68 Respiratory Rate 18 15 Blood Pressure 180/77 H Pulse Oximetry 97 97 Oxygen Delivery Method Oxygen Flow Rate 2 2 2 06/19/23 04:03 06/19/23 04:25 06/19/23 05:00 Temperature Pulse Rate 62 62 Respiratory Rate 15 14 Blood Pressure 158/70 H Pulse Oximetry 96 95 Oxygen Delivery Method Oxygen Flow Rate 2 2 2 06/19/23 05:00 06/19/23 05:14 06/19/23 06:00 Temperature Pulse Rate 69 Respiratory Rate 16 Blood Pressure 155/67 H 144/67 H Pulse Oximetry 93 Oxygen Delivery Method Oxygen Flow Rate 2 2 06/19/23 06:00 06/19/23 07:00 06/19/23 07:01 Temperature Pulse Rate 60 65 61 Respiratory Rate 15 16 14 Blood Pressure Pulse Oximetry 95 94 94 Oxygen Delivery Method Oxygen Flow Rate 06/19/23 07:01 06/19/23 08:12 Temperature Pulse Rate Respiratory Rate Blood Pressure 125/60 Pulse Oximetry 91 Oxygen Delivery Method Nasal Cannula Oxygen Flow Rate 1 Fraction of Inspired Oxygen 40 SaO2/FiO2 Ratio 230 Oxygen Delivery Method Nasal Cannula Oxygen Flow Rate 1 Narrative Exam Narrative: NAD, normal speech and calm. 2 liters O2 NC. Atraumatic head, EOMI. Neck supple and midline trachea. Lungs CTA, normal rate and effort. Heart RRR, without murmur, gallop, or rub. Abdomen Soft, NT, ND No leg edema. No skin rash. Objective Labs 06/19/23 05:20 06/19/23 06:15 Labs: Laboratory Results - last 24 hr 06/19/23 06/19/23 05:20 06:15 WBC 4.8 RBC 3.33 L Hgb 12.6 Hct 37.1 MCV 111.3 H MCH 37.8 H MCHC 33.9 RDW 12.3 Plt Count 163 Neut % (Auto) 66.0 Lymph % (Auto) 24.6 L Humphreys % (Auto) 6.0 Eos % (Auto) 2.9 Baso % (Auto) 0.5 Neut # (Auto) 3200 Lymph # (Auto) 1200 Humphreys # (Auto) 300 Eos # (Auto) 100 Baso # (Auto) 0 RBC Morphology See below Macrocytosis 2+ H Sodium 136 L Potassium 3.6 Chloride 102 Carbon Dioxide 29 BUN 24 H Creatinine 1.05 H Estimated GFR 57 L BUN/Creatinine Ratio 22.9 H Glucose 136 H Calcium 9.2 PFSH Medical History Brain aneurysm Chronic kidney disease COPD (chronic obstructive pulmonary disease) Duodenal ulcer perforation Erythrocytosis History of common carotid artery stent placement Hyperlipidemia Hypertension Primary hyperparathyroidism Smoker Surgical History History of appendectomy History of surgical procedure History of surgical procedure Hx of tonsillectomy Social History household members: spouse Smoking Status: Current every day smoker alcohol intake: current substance use type: does not use Assessment & Plan Assessment & Plan narrative: 1. Acute on chronic hypoxemic respiratory failure, POA and improving. -Acute COPD flare, volume overload. -chest imaging reveals possible pneumonia -continue with steroids, nebs -continue lasix -echo showed preserved EF -for now pneumonia on antibiotics with zosyn (will do a 5 day course). -teleICU started diamox BID -off HF, O2 2 liters NC. Wean O2 and OOB. PT. 2. Urine retention, new and active. -attempt removal Ramos in 1 day after OOB more today. 3. HTN, POA and stable. ?- continue home medications of amlodipine, losartan and metoprolol without c hange -Monitor. 4. DM type 2, POA and stable. -hold glipizide -insulin sliding scale ordered -monitor. 5. PUD with prior perforation, POA and stable. ?- continue home pantoprazole 40 mg ?- no NSAID use. 6. s/p lumbar fusion with Milli Reyes. ?- PT, OOB ?- dvt ppx per primary service 7. Remote carotid stent, POA and stable. ?- continue asa and plavix ok per surgery ?- continue statin Discharge planning. Home vs SNF pending PT. Time Spent With Patient Time with patient: 30 to 49 minutes with 50% spent counseling/coordinating care Quality VTE Deep Vein Thrombosis/Pulmonary Embolism Present on Admission: No
--- NOTE | 2023-06-19 08:15 | PM.PN.EICU ---
Subjective Subjective IF CAMERA ACTIVATED, patient seen via real-time interactive audiovisual communication: Camera not activated Date Patient Seen: 06/19/23 Consent obtained for tele-ceiling installer care: Yes Patient Location: ICU Provider location (State): [place] Other participants/roles: discussion with bedside RN, hospitalist Maciej Interval history: weaned to NC, oxygenation improving. diuresing. Afebrile with normal WBC Patient downgraded prior to rounds this am Current Medications Current Medications Medications: Home Medications acetaminophen 500 mg tablet 1,500 mg PO Q3H PRN Pain (Scale Score 1-3) 05/16/23 [History Confirmed 06/11/23] albuterol sulfate 90 mcg/actuation aerosol inhaler 2 puff inhalation Q4-6H PRN Dyspnea 05/16/23 [History Confirmed 06/11/23] amlodipine 10 mg tablet 10 mg PO DAILY 05/16/23 [History Confirmed 06/11/23] aspirin 81 mg capsule 81 mg PO DAILY 05/16/23 [History Confirmed 06/11/23] atorvastatin 80 mg tablet 80 mg PO DAILY 05/16/23 [History Confirmed 06/11/23] clopidogrel 75 mg tablet 75 mg PO DAILY 05/16/23 [History Confirmed 06/11/23] glipizide 2.5 mg tablet, extended release 24 hr 2.5 mg PO DAILY 05/16/23 [History Confirmed 06/11/23] losartan 25 mg tablet 25 mg PO DAILY 05/16/23 [History Confirmed 06/11/23] metoprolol succinate 50 mg tablet,extended release 24 hr 50 mg PO DAILY 05/16/23 [History Confirmed 06/11/23] pantoprazole 40 mg tablet,delayed release 40 mg PO DAILY 05/16/23 [History Confirmed 06/11/23] pramipexole 0.25 mg tablet 0.25 mg PO DAILY 05/16/23 [History Confirmed 06/11/23] gabapentin 400 mg capsule 800 mg PO BID 06/11/23 [History Confirmed 06/11/23] Visit Medications (administered) Generic Name Dose Route Start Last Admin Trade Name Freq PRN Reason Stop Dose Admin Acetaminophen 650 mg 06/11/23 18:50 06/19/23 05:09 Acetaminophen 325 Mg Tablet PO 650 mg Q6H PRN Administration Fever/Mild Pain (1-3) Albuterol/Ipratropium 3 ml 06/15/23 07:00 06/19/23 08:09 Albuterol/Ipratropium 3 Ml Ampul INH 3 ml [id number] [facility] Administration Amlodipine Besylate 10 mg 06/12/23 09:00 06/18/23 09:05 Amlodipine 5 Mg Tablet PO 10 mg DAILY [facility] Administration Aspirin 81 mg 06/15/23 09:45 06/18/23 09:05 Aspirin Ec 81 Mg Tablet PO 81 mg DAILY [facility] Administration Atorvastatin Calcium 80 mg 06/13/23 21:00 06/18/23 21:27 Atorvastatin 20 Mg Tablet PO 80 mg BEDTIME [facility] Administration Clopidogrel Bisulfate 75 mg 06/15/23 13:00 06/18/23 09:05 Clopidogrel 75 Mg Tablet PO 75 mg DAILY [facility] Administration Cyclobenzaprine HCl 10 mg 06/17/23 08:38 06/19/23 05:09 Cyclobenzaprine 10 Mg Tablet PO 10 mg Q8HR PRN Administration Spasms Docusate Sodium 100 mg 06/11/23 21:00 06/18/23 21:28 Docusate 100 Mg Capsule PO Not Given BID ABA Enoxaparin Sodium 40 mg 06/16/23 09:00 06/18/23 09:05 Enoxaparin 40 Mg/0.4 Ml Syringe SUBCUT 40 mg DAILY [facility] Administration Gabapentin 800 mg 06/11/23 21:00 06/18/23 21:27 Gabapentin 400 Mg Capsule PO 800 mg BID [facility] Administration Guaifenesin 600 mg 06/18/23 21:00 06/18/23 21:27 Guaifenesin Er 600 Mg Tab PO 600 mg BID [facility] Administration Heparin Sodium (Porcine) 50 unit 06/15/23 21:00 06/18/23 21:28 Heparin Flush (Cl/Picc/Mid-Line) 50 Unit/5 Ml Syringe IV 50 unit BID ABA Administration Hydromorphone HCl 0.5 mg 06/11/23 18:50 06/18/23 04:52 Hydromorphone 0.5 Mg Inj IV 0.5 mg Q2H PRN Administration Pain, Severe (7-10) Insulin Human Lispro 0 unit 06/16/23 16:45 06/18/23 21:36 Insulin Lispro 100 Unit/Ml 3ml Vial SUBCUT Not Given ACHS [facility] Protocol Magnesium Hydroxide 30 ml 06/11/23 18:50 06/16/23 09:25 Magnesium Hydroxide 30 Ml Udc PO 30 ml DAILY PRN Administration Constipation Methylprednisolone 30 mg 06/18/23 09:00 06/18/23 09:06 Methylprednisolone 40 Mg/Ml Vial IV 06/20/23 09:01 30 mg DAILY [facility] Administration Metoprolol Succinate 50 mg 06/12/23 09:00 06/18/23 09:06 Metoprolol Er 50 Mg Tablet PO 50 mg DAILY [facility] Administration Oxycodone HCl 5 mg 06/13/23 13:21 06/18/23 02:36 Oxycodone Ir 5 Mg Tablet PO 5 mg Q3HR PRN Administration Pain, Moderate (4-6) Pantoprazole Sodium 40 mg 06/12/23 09:00 06/18/23 09:[address] 40 Mg Tablet PO 40 mg DAILY [facility] Administration Polyethylene Glycol 17 gm 06/11/23 18:50 06/17/23 08:05 Polyethylene Glycol 3350 17 Gm Powd.Pack PO 17 gm DAILY PRN Administration Constipation Pramipexole Dihydrochloride 0.25 mg 06/12/23 21:00 06/18/23 21:27 Pramipexole 0.25 Mg Tablet PO 0.25 mg BEDTIME [facility] Administration Sennosides 17.2 mg 06/11/23 21:00 06/18/23 21:28 Sennosides 8.6 Mg Tablet PO Not Given BEDTIME ABA Sodium Chloride 10 ml 06/15/23 02:59 06/16/23 04:55 Sodium Chloride 0.9% Flush IV 10 ml PRN PRN Administration Flush Sodium Chloride 10 ml 06/15/23 09:00 06/18/23 21:28 Sodium Chloride 0.9% Flush IV 10 ml BID ABA Administration Tramadol HCl 50 mg 06/14/23 11:05 06/19/23 05:09 Tramadol 50 Mg Tablet PO 50 mg TID PRN Administration Pain, Moderate (4-6) Objective Ventilator Parameters: Ventilator Settings FiO2 0.44 Labs 06/19/23 05:20 06/19/23 06:15 Labs: Laboratory Results - last 24 hr 06/19/23 06/19/23 05:20 06:15 WBC 4.8 RBC 3.33 L Hgb 12.6 Hct 37.1 MCV 111.3 H MCH 37.8 H MCHC 33.9 RDW 12.3 Plt Count 163 Neut % (Auto) 66.0 Lymph % (Auto) 24.6 L [place] % (Auto) 6.0 Eos % (Auto) 2.9 Baso % (Auto) 0.5 Neut # (Auto) 3200 Lymph # (Auto) 1200 [place] # (Auto) 300 Eos # (Auto) 100 Baso # (Auto) 0 RBC Morphology See below Macrocytosis 2+ H Sodium 136 L Potassium 3.6 Chloride 102 Carbon Dioxide 29 BUN 24 H Creatinine 1.05 H Estimated GFR 57 L BUN/Creatinine Ratio 22.9 H Glucose 136 H Calcium 9.2 Exam Vital Signs (past 8 hours): - 06/19/23 00:33 06/19/23 01:00 06/19/23 01:00 Temperature Pulse Rate 66 66 Respiratory Rate 17 15 Blood Pressure 173/77 H Pulse Oximetry 98 99 Oxygen Delivery Method Oxygen Flow Rate 4 4 4 06/19/23 01:14 06/19/23 02:00 06/19/23 02:00 Temperature Pulse Rate 65 64 Respiratory Rate 14 17 Blood Pressure 156/67 H Pulse Oximetry 99 96 Oxygen Delivery Method Oxygen Flow Rate 4 06/19/23 03:00 06/19/23 03:00 06/19/23 03:00 Temperature Pulse Rate 63 Respiratory Rate 27 H Blood Pressure 165/71 H Pulse Oximetry 96 Oxygen Delivery Method High Flow Nasal Cannula Oxygen Flow Rate 06/19/23 04:00 06/19/23 04:00 06/19/23 04:03 Temperature 97.2 F L Pulse Rate 63 68 Respiratory Rate 18 15 Blood Pressure 180/77 H Pulse Oximetry 97 97 Oxygen Delivery Method Oxygen Flow Rate 2 2 2 06/19/23 04:03 06/19/23 04:25 06/19/23 05:00 Temperature Pulse Rate 62 62 Respiratory Rate 15 14 Blood Pressure 158/70 H Pulse Oximetry 96 95 Oxygen Delivery Method Oxygen Flow Rate 2 2 2 06/19/23 05:00 06/19/23 05:14 06/19/23 06:00 Temperature Pulse Rate 69 Respiratory Rate 16 Blood Pressure 155/67 H 144/67 H Pulse Oximetry 93 Oxygen Delivery Method Oxygen Flow Rate 2 2 06/19/23 06:00 06/19/23 07:00 06/19/23 07:01 Temperature Pulse Rate 60 65 61 Respiratory Rate 15 16 14 Blood Pressure Pulse Oximetry 95 94 94 Oxygen Delivery Method Oxygen Flow Rate 06/19/23 07:01 06/19/23 08:12 Temperature Pulse Rate Respiratory Rate Blood Pressure 125/60 Pulse Oximetry 91 Oxygen Delivery Method Nasal Cannula Oxygen Flow Rate 1 Fraction of Inspired Oxygen 40 SaO2/FiO2 Ratio 230 Oxygen Delivery Method Nasal Cannula Oxygen Flow Rate 1 Quality TeleICU VTE Deep Vein Thrombosis/Pulmonary Embolism Present on Admission: No Stress Ulcer Stress ulcer prophylaxis: yes Assessment & Plan Assessment and plan (1) Acute and chronic respiratory failure with hypoxia: Problem details: Unclear etiology. Does not appear to be infectious. Elevated BNP raises CHF etiology. Post-op status also raises DVT/PE concern Status: Acute (2) COPD (chronic obstructive pulmonary disease): Status: Acute (3) Duodenal ulcer perforation: Problem details: Chronic issue (history of) Status: Chronic (4) Type 2 diabetes mellitus: Problem details: Has history of PVD Qualifiers: Diabetes mellitus complication status: with circulatory complication Diabetes mellitus terminal press operator insulin use: unspecified terminal press operator insulin use status Status: Acute (5) Elevated brain natriuretic peptide (BNP) level: Status: Acute (6) NOEMI (acute kidney injury): Status: Acute Plan Chart reviewed, plan for downgrade d/w hospitalist MD Wing Assessment & Plan narrative: Assessment & Plan narrative: NEURO: # Decondition -- Seek early mobility -- PT/OT RESP: # Acute hypoxemia respiratory failure --improving, weaned to NC -- Secondary to PNA w/ severe atelectasis? -- On zosyn -- CTA PE study negative for PE -- Cx negative to date -- Encourage IS and seek early mobility -- HOB elevation -- Aspiration precaution -- Goal SpO2 > 88% CVS: # HTN -- On norvasc, metoprolol -- GOal SBP < 140 : # NOEMI -- improving, cr downtrending -- Secondary to over diuresis -- Holding lasix -- Monitor I/O -- Avoid nephrotoxin agents -- Trend BMP ID: # Negative culture PNA -- ON zosyn -- Follow up cx ENDO: -- Goal BS < 180 ppx: lovenox and PPI can downgrade from ICU status today D/w bedside RN. Time Spent With Patient Time with patient: less than 30 minutes (no critical care billing )
[2023-06-19] MEDS: INSULIN LISPRO 100 UNIT/ML 3ML VIAL SUBCUT ×3 (09:24→17:31)
[2023-06-19] MEDS: AMLODIPINE 5 MG TABLET 10 MG PO (09:26)
[2023-06-19] MEDS: ASPIRIN EC 81 MG TABLET PO (09:27)
[2023-06-19] MEDS: ENOXAPARIN 40 MG/0.4 ML SYRINGE SUBCUT (09:27)
[2023-06-19] MEDS: DOCUSATE 100 MG CAPSULE PO (09:27)
[2023-06-19] MEDS: CLOPIDOGREL 75 MG TABLET PO (09:27)
[2023-06-19] MEDS: guaiFENesin ER 600 MG TAB PO ×2 (09:27→20:14)
[2023-06-19] MEDS: GABAPENTIN 400 MG CAPSULE 800 MG PO ×2 (09:27→20:13)
[2023-06-19] MEDS: METOPROLOL ER 50 MG TABLET PO (09:28)
[2023-06-19] MEDS: PANTOPRAZOLE DR 40 MG TABLET PO (09:29)
[2023-06-19] MEDS: SODIUM CHLORIDE 0.9% FLUSH 10 ML IV ×2 (09:29→20:14)
--- NOTE | 2023-06-19 10:13 | CM.DPC ---
Addendum entered by Julia Paige R.N. 06/19/23 12:02: Checked in with patient and spouse. Pranav, SENIOR ENGINEERING TECHNICIAN, indicated that patient has improved with mobility, could possibly go home, but patient and spouse still want to go to [facility]. Spouse indicated, he is worried that when she gets home, she may end up with more respiratory problems, and is worried about that. For now, will continue to plan on [facility]. Original Note: DCP Cont: It is noted that patient is now between 1-2 liters of oxygen. Spoke to Jj rosa Livingston and updated her. She indicated, they can accept patient should she need to be back on high flow again. Hospitalist indicated that patient should be ready for discharge approximately on 06/21. Called Mikki at [facility] , updated her, did also encourage her to plan for tomorrow, should she improve and be ready then. Confirmed she can still accept. If patient does improve with P.T. today, could possibly have a home plan. P: DCP to continue to follow. Plan is [facility], potentially home if she does improve. [facility] can accept tomorrow if medically stable. Julia Paige RN/Reptile [employer]
--- NOTE | 2023-06-19 10:17 | PT.IPTN ---
Current Diagnoses Type 2 diabetes mellitus without complications (06/11/23) Chronic obstructive pulmonary disease, unspecified (06/11/23) Acute and chronic respiratory failure with hypoxia (06/11/23) Chronic or unspecified duodenal ulcer with perforation (06/11/23) Spinal stenosis, lumbar region with neurogenic claudication (06/11/23) Postlaminectomy syndrome, not elsewhere classified (06/11/23) Acute kidney failure, unspecified (06/11/23) Other specified abnormal findings of blood chemistry (06/11/23) Surgery Performed Operation Date: 06/11/23 14:45 Actual Procedures p L3-4 TLIF - Javed Vallecillo MD Physical Therapy Treatment Note M2 PT-IP Current Condition Start: 06/12/23 13:00 Freq: NEEDED Status: Active Protocol: Document 06/18/23 09:24 SP (Rec: 06/18/23 09:45 SP [id number]) Physical Therapy Current Condition Current Condition Evaluation Date 06/12/23 Treatment Diagnosis s/p lumbar TLIF L3-L4 Onset Date 06/11/23 M3 PT-IP Subjective Start: 06/12/23 13:00 Freq: NEEDED Status: Active Protocol: Document 06/19/23 10:42 TS (Rec: 06/19/23 11:00 TS [id number]) Subjective Physical Therapy Visit Type Type Treatment Note Visit Start Time 10:17 Visit Stop Time 10:37 Total Visit Minutes 20 Number of CORN CHIP MAKER Visits 1 Physical Therapy Visit Comments Patient Comments Pt found resting in chair on 1L o2 90% NC, reports having some pain in LEs but feeling much better. Therapy Pain Assessment Pain When Pain Assessed During Mobility Pain Present Pain Present Pain Reported M4 PT-IP Mobility and Gait Start: 06/12/23 13:00 Freq: NEEDED Status: Active Protocol: Document 06/19/23 10:42 TS (Rec: 06/19/23 11:00 TS [id number]) PT-Transfer Assessment Sit to and From Stand Sit to and from Stand Standby Assistance,Contact Guard Assistance,1 Person Assistance,Use of Upper Extremities Equipment Transfer Assistive Device Gait Belt,Front Wheeled Walker Orthotic/Prosthetic Devices or Brace: No Comments Mobility Comments Pt found resting in bed, SPo2 90% on 1L, HR 74. Her o2 drops sitting in chair speaking to therapist to low 80's, required cues for PLB, increased to 92%. Pt recalled 2/3 spinal precautions prior to mobility(no lifting). Sit to stand from chair w/FWW CGA, she demonstrated good carryover of sequencing. She ambulated in room ~40'CGA/SBA, she is unsteady but has no buckling or LOB. She ambulated back to chair, Spo2 84% on 1L , cued for PLB, increased to low 90's. She performed sit to stand test x5 in 42 secs, she self cued for PLB, Spo2 88% on 1L. Pt was left back in chair with all needs met. Gait Assessment Gait Gait Assistance Required: Standby Assistance,Contact Guard Assist,1 Person Assist Distance (Feet) 40 Assistive Devices Assistive Device Gait Belt,Front Wheeled Walker Orthotic/Prosthetic Devices or Brace: No Gait Deviations General Gait Pattern Antalgic,Decreased Stride Length,Decreased Feet Clearance,Flexed Trunk,Lateral Trunk Lean,Step-to Gait,Wide Based Gait Factors Limiting Gait Function Factors Limiting Gait Function Decreased Activity Tolerance, Decreased Strength,Difficulty Following Directions,Limited Range of Motion,Poor Balance, Poor Safety Awareness, Respiratory Distress Comments Gait Comments See mobility comments. PT-Balance Assessment Sitting Balance and Reactions Static Sitting Balance Ability Fair Dynamic Sitting Balance Ability Fair Standing Balance and Reactions Static Standing Balance Ability Fair Dynamic Standing Balance Ability Fair Device Used FWW Functional Assessments Functional Tests 5 Times Sit to Stand 42 M5 PT-IP Objective Assessments Start: 06/12/23 13:00 Freq: NEEDED Status: Active Protocol: Document 06/12/23 13:00 AB (Rec: 06/12/23 13:28 AB [id number]) Orientation Orientation/Cognition Level of Alertness Alert Orientation Name,Age,Birthday,Month,Date, Year,Day of Week,Place, Situation Language Function Ability No Deficits Noted Safety Awareness Understands Safety Issues Memory Description No Deficits Noted Gross Range of Motion Upper Extremity ROM Assessment Within Functional Limits Lower Extremity ROM Assessment Within Functional Limits Strength Upper Extremity Strength Assessment Within Functional Limits Lower Extremity Strength Assessment Bilaterally Impaired M6 PT-IP Treatment Start: 06/12/23 13:00 Freq: NEEDED Status: Active Protocol: Document 06/19/23 10:42 TS (Rec: 06/19/23 11:00 TS [id number]) Physical Therapy Treatment Education Education Provided Precautions,Safety Other Treatments Other Treatment Performed 5xSTS M7 PT-IP Assessment and Plan Start: 06/12/23 13:00 Freq: NEEDED Status: Active Protocol: Document 06/19/23 10:42 TS (Rec: 06/19/23 11:00 TS [id number]) PT Summary Assessment and Plan Potential Rehabilitation Potential Fair Summary Impairments Pain,ROM,Strength,Balance, Coordination,Bed Mobility, Transfers,Gait,Activity Tolerance Progress Towards Goals Progressing Toward Goals Assessment Summary Celi is on 1L o2 NC at 90% at rest. When she conversing with therapist or dueing mobility she desats to low 80' s. She initially required cues for PLB but could self cue by end of session. She is CGA/ SBA for sit to stands w/FWW, she performed STS test x5 in 42 secs. She progressed her mobility to ~40'CGA/SBA. She is unsteady with gait but does not have any buckling or LOB as previously. She continues to have difficulty recalling spinal precautions, she recalled 2/3(no lifting). PT is recommending home with 24/7 support at this time. Pt could benefit from HHPT. Goals Bed Mobility Goal Independent Transfer Goal Standby Assistance,Front Wheeled Walker Gait Goal Standby Assistance,Front Wheel Walker Gait Distance 50 Other Goals Pt to recall 3/3 lumbar spine surgical precautions in order to improve her post operative outcomes and improve her safety. Days to Meet Goals 5 Frequency of Treatment Frequency Of Treatment Twice a Day Treatment Plan Physical Therapy Treatment Plan Bed Mobility Training,Transfer Training,Gait Training, Therapeutic Exercise,Balance Retraining,Post Op Education, Discharge Planning,Hot or Cold Pack,Neuromuscular Re-ed, Coordination Retraining,Manual Therapy Other Recommendations and Next Treatment pre mob LE ther ex, 5 x STS, Focus transfers, increase distance gait w/ FWW. If safe trial 4WW (has at home) Precautions Lumbar Precautions Log Roll,No Twisting,Limit Bending,Lifting Restriction of 10 lbs,Gait Belt above Incisional Area Other Precautions Fall risk Weight Bearing Status Weight Bearing Status Weight Bear as Tolerated Recommendations To Nursing Amount of Assist Needed 1 Person Assist Discharge Recommendations PT Discharge Recommendations Home with 24/7 Assist Available,Home Health Equipment Needed for Home Before FWW Discharge Transportation Needs at Discharge Private Vehicle
--- NOTE | 2023-06-19 11:03 | OT.IP.TRT ---
Current Diagnoses Type 2 diabetes mellitus without complications (06/11/23) Chronic obstructive pulmonary disease, unspecified (06/11/23) Acute and chronic respiratory failure with hypoxia (06/11/23) Chronic or unspecified duodenal ulcer with perforation (06/11/23) Spinal stenosis, lumbar region with neurogenic claudication (06/11/23) Postlaminectomy syndrome, not elsewhere classified (06/11/23) Acute kidney failure, unspecified (06/11/23) Other specified abnormal findings of blood chemistry (06/11/23) Surgery Performed Operation Date: 06/11/23 14:45 Actual Procedures p L3-4 TLIF - Javed Vallecillo MD Occupational Therapy Treatment Note M2 OT-IP Current Condition Start: 06/12/23 13:21 Freq: Status: Active Protocol: Document 06/12/23 11:25 [facility] (Rec: 06/12/23 13:55 [facility] [id number]) Occupational Therapy Current Condition Current Condition Evaluation Date 06/12/23 Treatment Diagnosis S/P L3-4 TLIF Diagnosis Onset Date 06/11/23 Post Operative Precautions Lumbar Precautions Log Roll,No Twisting,Limit Bending,Lifting Restriction of 10 lbs,Gait Belt above Incisional Area M3 OT- IP Subjective and Pain Start: 06/12/23 13:21 Freq: Status: Active Protocol: Document 06/19/23 11:03 [facility] (Rec: 06/19/23 12:06 [facility] [id number]) OT- Subjective Occupational Therapy Visit Type Type Treatment Note Visit Start Time 11:03 Visit Stop Time 11:45 Total Visit Minutes 42 Occupational Therapy Visit Comments Patient Comments Pt agreed to get up and wanting to brush her mouth out and hair. Notified nursing that there was a loose pill on the floor. When asked way pt did not have a dressing on her incisions, nursing aid states they are airing out her back at this time. Patient/Caregiver Goals Pt wanting to go home but open to going to skilled rehab if needed. OT Pain Assessment Pain When Pain Assessed At Rest Pain Present Pain Present Denied Pain M4 OT- IP ADL's Start: 06/12/23 13:21 Freq: Status: Active Protocol: Document 06/19/23 11:03 [facility] (Rec: 06/19/23 12:06 [facility] [id number]) OT [id number] General Evaluation Self-Feeding Ability Independent OT ADL-Grooming General Evaluation Grooming Ability Standby Assistance Areas Needing Assistance Retrieving/Set-up of Grooming Items Comments OT Grooming Comments Set-up, vc to let her know her dentures were is her mouth when trying to look for them. OT ADL-Oral Care General Eval Oral Care Ability Independent OT ADL-Dressing General Eval Lower Body Dressing Ability Moderate Assistance Areas Needing Assistance Underpants/Brief Comments OT Dressing Comments NINI to help get the brief over her feet and up over her hips. Assist to help pull up the brief in the back as well. OT ADL-Toileting General Evaluation Toileting Ability Maximum Assistance Areas Needing Assistance Manage Clothing,Perform Perineal Hygiene Comments OT Toileting Comments Pt unable to reach apppropriately and needing assist to wipe her bottom. At this time her will have to assist her. Suggested use of wet ones and pull up brief will be helpful at home in addition to getting a BSC. OT ADL-Bathing Comments OT Bathing Comments Not performed. M5 OT- IP IADL's Start: 06/12/23 13:21 Freq: Status: Active Protocol: Document 06/12/23 11:25 [facility] (Rec: 06/12/23 13:55 [facility] [id number]) OT-Instrumental Activities of Daily Living Deficits IADL Deficits Identified Deficits Home Safety Awareness Awareness of Need for Assistance at Home Decreased Awareness Home Safety Comments Pt is forgetful that she just had back surgery and assuming that she is able to do it on her own or that he is capable to assist. At this time would be best for her to assist with her needs as she is forgetful. Meal Preparation Meal Preparation Caregiver Provides Assist News Director News Director Caregiver Provides Assist M6 OT- IP Functional Cognition Start: 06/12/23 13:21 Freq: Status: Active Protocol: Document 06/19/23 11:03 [facility] (Rec: 06/19/23 12:06 [facility] [id number]) Cognitive Factors Limiting Selfcare Function Cognitive Ability Level of Alertness Alert Patient Orientation Name,Place,Situation Attention Span Ability Capable of Focused Attention, Capable of Sustained Attention Memory Description Short Term Impaired Cognitive Comments Cognitive Assessment Comments Pt a bit forgetful and forgets that she had her dentures in, forgetting to lock the brakes of the 4ww first before standing or sitting up. Pt however does recall her back precautions. M7 OT- IP Mobility and Balance Start: 06/12/23 13:21 Freq: Status: Active Protocol: Document 06/19/23 11:03 [facility] (Rec: 06/19/23 12:06 [facility] [id number]) OT-Transfer Assessment Sit to and From Stand Sit to and from Stand Standby Assistance,Contact Guard Assistance Transfers Transfer Ability Standby Assistance,Contact Guard Assistance Technique Transfer Destination Bedside Commode,Chair Transfer Technique Stand Step Pivot Devices Transfer Assistive Devices Gait Belt,Front Wheeled Walker Comments Mobility Comments Pt able to come to stand with CGA to close SBA to the 4ww as pt has one at home she uses. Pt O2 on 1L 86% and after up at the sink and BSC at 92%. OT- Balance Assessment Sitting Balance and Reactions Static Sitting Balance Ability Good Dynamic Sitting Balance Ability Fair Standing Balance and Reactions Static Standing Balance Ability Fair Dynamic Standing Balance Ability Fair M8 OT- IP Objective Assessments Start: 06/12/23 13:21 Freq: Status: Active Protocol: Document 06/12/23 11:25 [facility] (Rec: 06/12/23 13:55 [facility] [id number]) OT Gross Range of Motion Upper Extremity Range of Motion Assessment Within Functional Limits OT Strength Upper Extremity Strength Assessment Within Functional Limits M9 OT- IP Assessment and Plan Start: 06/12/23 13:21 Freq: Status: Active Protocol: Document 06/19/23 11:03 [facility] (Rec: 06/19/23 12:06 [facility] [id number]) OT Summary Assessment and Plan Potential Rehabilitation Potential Good Analytic Complexity at Evaluation Low Summary OT Impairments Pain,Strength,Balance, Sensation,Functional Mobility, Grooming,Dressing,Toileting, Bathing,Toilet Transfers, Shower Transfers,Activity Tolerance Progress Towards Goals Progressing Toward Goals Assessment Summary Pt able to tolerate standing at the sink today and use of BSC . Pt still a little forgetful and will needing assist for especially LB and toileting needs today. Pt still will highly benefit from skilled rehab. However pt's insists that he can take care of her. To focus more on caregiver training with her . Goals Self-Feeding Goal Independent Grooming Goal Independent Dressing Goal Minimal Assistance Toileting Goal Standby Assistance Bathing Goal Minimal Assistance Toilet Transfer Goal Independent Shower Transfer Goal Contact Guard Assistance Days to Meet Goals 20 Frequency of Treatment Frequency Of Treatment Once a Day Treatment Plan OT Treatment Plan ADL Training,Functional Cognition Training,Functional Mobility,Patient/Family Education,Discharge Planning Other Treatment Recommendations and Next shower Treatment Focus Discharge Recommendations OT Discharge Recommendations SNF Rehab,Home vs SNF Other Discharge Recommendations Pending caregiver training possibly home with 24/ assist and home health. Transportation Needs at Discharge Private Vehicle,Wheelchair/ Cabulance
[2023-06-19] MEDS: OXYCODONE IR 5 MG TABLET PO (12:41)
--- NOTE | 2023-06-19 14:10 | P.PN_ITS ---
Subjective Subjective Date Patient Seen: 06/19/23 Time Patient Seen: 14:10 Interval history: Patient states her back pain is mild. No fever or chills. No nausea or vomiting. Exam Vital Signs (past 8 hours): - 06/19/23 07:00 06/19/23 07:01 06/19/23 07:01 Temperature Pulse Rate 65 61 Respiratory Rate 16 14 Blood Pressure 125/60 Pulse Oximetry 94 94 Oxygen Delivery Method Oxygen Flow Rate Fraction of Inspired Oxygen 06/19/23 08:12 06/19/23 08:00 06/19/23 08:00 Temperature Pulse Rate 66 Respiratory Rate 20 Blood Pressure 152/64 H Pulse Oximetry 91 94 Oxygen Delivery Method Nasal Cannula Oxygen Flow Rate 1 Fraction of Inspired Oxygen 06/19/23 09:00 06/19/23 09:01 06/19/23 09:01 Temperature 98 F Pulse Rate 73 73 Respiratory Rate 16 16 Blood Pressure 135/61 Pulse Oximetry 85 L 86 L Oxygen Delivery Method Oxygen Flow Rate Fraction of Inspired Oxygen 06/19/23 09:28 06/19/23 10:00 06/19/23 10:00 Temperature Pulse Rate 86 73 Respiratory Rate 18 Blood Pressure 125/60 150/74 H Pulse Oximetry 88 L Oxygen Delivery Method Oxygen Flow Rate Fraction of Inspired Oxygen 06/19/23 09:58 06/19/23 07:00 06/19/23 11:43 Temperature Pulse Rate 70 68 Respiratory Rate 20 Blood Pressure 150/74 H Pulse Oximetry 89 L Oxygen Delivery Method Nasal Cannula Nasal Cannula Oxygen Flow Rate 1 Fraction of Inspired Oxygen 24 06/19/23 11:00 06/19/23 12:00 06/19/23 13:00 Temperature Pulse Rate 69 67 68 Respiratory Rate 16 22 18 Blood Pressure Pulse Oximetry 86 L 90 L 92 Oxygen Delivery Method Oxygen Flow Rate Fraction of Inspired Oxygen Fraction of Inspired Oxygen 24 SaO2/FiO2 Ratio 370 Oxygen Delivery Method Nasal Cannula Oxygen Flow Rate 1 Narrative Exam Narrative: 68-year-old female sitting comfortably in bedside chair in no apparent distress. Patient currently on 2 L per nasal cannula. The incisions are healing well. No erythema or drainage. Motor functions intact bilateral lower extremities. Const General: cooperative and comfortable Resp Effort & Inspection: normal respiratory effort and able to speak in complete sentences Objective Labs 06/19/23 05:20 06/19/23 06:15 Labs: Laboratory Results - last 24 hr 06/19/23 06/19/23 05:20 06:15 WBC 4.8 RBC 3.33 L Hgb 12.6 Hct 37.1 MCV 111.3 H MCH 37.8 H MCHC 33.9 RDW 12.3 Plt Count 163 Neut % (Auto) 66.0 Lymph % (Auto) 24.6 L [place] % (Auto) 6.0 Eos % (Auto) 2.9 Baso % (Auto) 0.5 Neut # (Auto) 3200 Lymph # (Auto) 1200 [place] # (Auto) 300 Eos # (Auto) 100 Baso # (Auto) 0 RBC Morphology See below Macrocytosis 2+ H Sodium 136 L Potassium 3.6 Chloride 102 Carbon Dioxide 29 BUN 24 H Creatinine 1.05 H Estimated GFR 57 L BUN/Creatinine Ratio 22.9 H Glucose 136 H Calcium 9.2 PFSH Medical History Brain aneurysm Chronic kidney disease COPD (chronic obstructive pulmonary disease) Duodenal ulcer perforation Erythrocytosis History of common carotid artery stent placement Hyperlipidemia Hypertension Primary hyperparathyroidism Smoker Surgical History History of appendectomy History of surgical procedure History of surgical procedure Hx of tonsillectomy Social History household members: spouse Smoking Status: Current every day smoker alcohol intake: current substance use type: does not use Assessment & Plan Post-op Postoperative Procedures: Procedures Operation Date: 06/11/23 14:45 Actual Procedure Side Surgeon p L3-4 TLIF Javed Vallecillo MD Postoperative day: 8 Postoperative status narrative: Patient improving status post lumbar fusion Patient currently tolerating sitting in bedside chair on 2 L per nasal cannula. Patient has been downgraded and hospitalist continues to follow for acute on chronic hypoxemic respiratory failure, POA and improving, urinary retention. Catheter removed and had to be reinserted for urinary retention. Attempt removal Ramos again tomorrow encourage out of bed. Limit bending, twisting, lifting Disposition 1-2 days when stable per hospitalist Quality VTE Deep Vein Thrombosis/Pulmonary Embolism Present on Admission: No
--- NOTE | 2023-06-19 14:21 | PC.NURSE ---
Addendum entered by Bella Robert R.N. 06/19/23 14:28: Reinforced PICC dressing in afternoon. Insertion site clean/dry/intact. Original Note: During am rounds, RN spoke with hospitalist regarding pt status and Ramos reinsertion overnight for retention (>800). Provider said to leave Ramos in for today and Ramos may be removed tomorrow for void trial. Provider and RN encouraged pt to get up to chair and ambulate with assistance. RN assessed pt's back incision with am assessment and observed that incision was TERI. When orthopedic PA did rounds in afternoon, RN relayed information about the Ramos and PA concurred with hospitalist. RN asked PA about incision regarding wound care and if PA was okay with incision being TERI. PA assessed incision and said TERI is fine and wound care not needed.
--- NOTE | 2023-06-19 15:34 | PT.IPTN ---
Current Diagnoses Type 2 diabetes mellitus without complications (06/11/23) Chronic obstructive pulmonary disease, unspecified (06/11/23) Acute and chronic respiratory failure with hypoxia (06/11/23) Chronic or unspecified duodenal ulcer with perforation (06/11/23) Spinal stenosis, lumbar region with neurogenic claudication (06/11/23) Postlaminectomy syndrome, not elsewhere classified (06/11/23) Acute kidney failure, unspecified (06/11/23) Other specified abnormal findings of blood chemistry (06/11/23) Surgery Performed Operation Date: 06/11/23 14:45 Actual Procedures p L3-4 TLIF - Javed Vallecillo MD Physical Therapy Treatment Note M2 PT-IP Current Condition Start: 06/12/23 13:00 Freq: NEEDED Status: Active Protocol: Document 06/18/23 09:24 SP (Rec: 06/18/23 09:45 SP [id number]) Physical Therapy Current Condition Current Condition Evaluation Date 06/12/23 Treatment Diagnosis s/p lumbar TLIF L3-L4 Onset Date 06/11/23 M3 PT-IP Subjective Start: 06/12/23 13:00 Freq: NEEDED Status: Active Protocol: Document 06/19/23 16:13 TS (Rec: 06/19/23 16:31 TS [id number]) Subjective Physical Therapy Visit Type Type Treatment Note Visit Start Time 15:34 Visit Stop Time 15:58 Total Visit Minutes 24 Notes Spouse present Number of CLUB CAR ATTENDANT Visits 2 Physical Therapy Visit Comments Patient Comments Pt found without o2, pt reports she hasn't been on o2 this afternoon, nursing states pt is on 2L and needs to keep it on. Spo2 on RA low 80's, low 90's on 2L. Pt agreeable to PT. Therapy Pain Assessment Pain When Pain Assessed During Mobility Pain Present Pain Present Pain Reported M4 PT-IP Mobility and Gait Start: 06/12/23 13:00 Freq: NEEDED Status: Active Protocol: Document 06/19/23 16:13 TS (Rec: 06/19/23 16:31 TS [id number]) PT-Transfer Assessment Sit to and From Stand Sit to and from Stand Standby Assistance,Use of Upper Extremities Equipment Transfer Assistive Device Gait Belt,Front Wheeled Walker Orthotic/Prosthetic Devices or Brace: No Comments Mobility Comments Prior to mobility spouse was instructed in and performed donning/doffing of gait belt. Sit to stand from chair SBA w/ 4WW, pt demonstrated good use of FWW with locking of brakes. She ambulated ~80'SBA with 4WW, pt is unsteady especially with turns but has no buckling or LOB. She performed sit to stand x5 in 31 secs, requires cues to continue to breath. Spo2 after sit to stand x5 mid 80's, with cues for PLB Spo2 quickly increases to low 90's. She ambulated another 20'SBA w/4WW before returning back to chair. She recalled 2/3 spinal precautions(no lifting). She was left back in chair with all needs met. Gait Assessment Gait Gait Assistance Required: Standby Assistance,1 Person Assist Distance (Feet) 100 Assistive Devices Assistive Device Gait Belt,Front Wheeled Walker Orthotic/Prosthetic Devices or Brace: No Gait Deviations General Gait Pattern Antalgic,Decreased Stride Length,Decreased Feet Clearance,Flexed Trunk,Lateral Trunk Lean,Step-to Gait,Wide Based Gait Factors Limiting Gait Function Factors Limiting Gait Function Decreased Activity Tolerance, Decreased Strength,Difficulty Following Directions,Limited Range of Motion,Poor Balance, Poor Safety Awareness, Respiratory Distress Comments Gait Comments See mobility comments. PT-Balance Assessment Sitting Balance and Reactions Static Sitting Balance Ability Good Dynamic Sitting Balance Ability Fair Standing Balance and Reactions Static Standing Balance Ability Fair Dynamic Standing Balance Ability Fair Device Used FWW Functional Assessments Functional Tests 5 Times Sit to Stand 31 M5 PT-IP Objective Assessments Start: 06/12/23 13:00 Freq: NEEDED Status: Active Protocol: Document 06/12/23 13:00 AB (Rec: 06/12/23 13:28 AB [id number]) Orientation Orientation/Cognition Level of Alertness Alert Orientation Name,Age,Birthday,Month,Date, Year,Day of Week,Place, Situation Language Function Ability No Deficits Noted Safety Awareness Understands Safety Issues Memory Description No Deficits Noted Gross Range of Motion Upper Extremity ROM Assessment Within Functional Limits Lower Extremity ROM Assessment Within Functional Limits Strength Upper Extremity Strength Assessment Within Functional Limits Lower Extremity Strength Assessment Bilaterally Impaired M6 PT-IP Treatment Start: 06/12/23 13:00 Freq: NEEDED Status: Active Protocol: Document 06/19/23 16:13 TS (Rec: 06/19/23 16:31 TS [id number]) Physical Therapy Treatment Education Education Provided Precautions,Safety Other Treatments Other Treatment Performed 5xSTS M7 PT-IP Assessment and Plan Start: 06/12/23 13:00 Freq: NEEDED Status: Active Protocol: Document 06/19/23 16:13 TS (Rec: 06/19/23 16:31 TS [id number]) PT Summary Assessment and Plan Potential Rehabilitation Potential Fair Summary Impairments Pain,ROM,Strength,Balance, Coordination,Bed Mobility, Transfers,Gait,Activity Tolerance Progress Towards Goals Progressing Toward Goals Assessment Summary Celi continues to make progress with her mobility. She progressed her gait to ~ 100'SBA with use of 4WW. Her gait remains unsteady but has no buckling or LOB. Her sit to stand test time improved with a time of 31 secs from 42 secs. She continues to have some difficulty recalling spinal precautions, she recalled 2/3(no lifting). Spouse was educated on and performed donning/doffing of gait belt and proper handplacement on gait for sit to stands/gait. PT is recommending pt return home with 24/7 assist and HHPT. Goals Bed Mobility Goal Independent Transfer Goal Standby Assistance,Front Wheeled Walker Gait Goal Standby Assistance,Front Wheel Walker Gait Distance 50 Other Goals Pt to recall 3/3 lumbar spine surgical precautions in order to improve her post operative outcomes and improve her safety. Days to Meet Goals 5 Frequency of Treatment Frequency Of Treatment Twice a Day Treatment Plan Physical Therapy Treatment Plan Bed Mobility Training,Transfer Training,Gait Training, Therapeutic Exercise,Balance Retraining,Post Op Education, Discharge Planning,Hot or Cold Pack,Neuromuscular Re-ed, Coordination Retraining,Manual Therapy Other Recommendations and Next Treatment pre mob LE ther ex, 5 x STS, Focus transfers, increase distance gait w/ 4WW Precautions Lumbar Precautions Log Roll,No Twisting,Limit Bending,Lifting Restriction of 10 lbs,Gait Belt above Incisional Area Other Precautions Fall risk Weight Bearing Status Weight Bearing Status Weight Bear as Tolerated Recommendations To Nursing Amount of Assist Needed 1 Person Assist Discharge Recommendations PT Discharge Recommendations Home with 24/7 Assist Available,Home Health Equipment Needed for Home Before FWW Discharge Transportation Needs at Discharge Private Vehicle
[2023-06-19] MEDS: LOSARTAN 25 MG TABLET PO (16:31)
[2023-06-19] MEDS: ATORVASTATIN 20 MG TABLET 80 MG PO (20:13)
[2023-06-19] MEDS: PRAMIPEXOLE 0.25 MG TABLET PO (20:14)
[2023-06-20] VITALS (27 sets, daily range): BP systolic 116–174; BP diastolic 59–81; PULSE 58–88; RESP 14–39; TEMP 36.9–37.3; O2SAT 88–100
[2023-06-20] MEDS: TRAMADOL 50 MG TABLET PO ×2 (04:23→10:17)
[2023-06-20] MEDS: CYCLOBENZAPRINE 10 MG TABLET PO (04:23)
[2023-06-20] MEDS: ACETAMINOPHEN 325 MG TABLET 650 MG PO (04:24)
[2023-06-20 05:20] LABS: Basophils Absolute Auto 0 /uL (0-100); Basophils Percent Auto 0.4 % (0-2); Eosinophils Absolute Auto 100 /uL (0-450); Eosinophils Percent Auto 1.4 % (2-4); Hematocrit 40.2 % (36-46); Hemoglobin 13.5 g/dL (12.0-16.0); Lymphocytes Absolute Auto 1400 /uL (1100-4500); Lymphocytes Percent Auto 24.3 % (25-40); Mean Corpuscular HGB Conc 33.6 % (30-36); Mean Corpuscular Hemoglobin 37.4 PG (26-34); Mean Corpuscular Volume 111.3 fL (80-100); Monocytes Absolute Auto 300 /uL (0-900); Neutrophils Absolute Auto 3900 /uL (1500-7000); Neutrophils Percent Auto 68.9 % (50-75); Platelet Count 183 X10^3/uL (150-400); Red Blood Cell Count 3.61 X10^6/uL (4.0-5.2); Red Cell Distribution Width 12.2 % (11.6-14.8); White Blood Cell Count 5.6 X10^3/uL (4.5-11.0)
[2023-06-20 05:21] LABS: Add Manual Diff / Slide Review SLIDE REVIEW
[2023-06-20 05:28] LABS: BUN Creatinine Ratio 23.5 (6-22); Blood Urea Nitrogen 24 mg/dL (7-17); Calcium 9.4 mg/dL (8.4-10.2); Carbon Dioxide 30 mmol/L (22-32); Chloride 101 mmol/L (98-107); Estimated Glomerular Filt Rate 59 mL/min (>60); Glucose 131 mg/dL (80-110); HEMOLYSIS < 15 (0-50); Potassium 3.8 mmol/L (3.4-5.1); Sodium 138 mmol/L (137-145)
[2023-06-20 06:53] LABS: Macrocytosis 2+
--- NOTE | 2023-06-20 07:57 | PM.PNPO.1 ---
Subjective Subjective Date Patient Seen: 06/20/23 Time Patient Seen: 07:58 Interval history: Patient's pain is mild. Denies shortness of breath or chest pain. No fever or chills Exam Vital Signs (past 8 hours): - 06/20/23 00:00 06/20/23 00:01 06/20/23 00:01 Temperature Pulse Rate 73 70 Respiratory Rate 22 33 H Blood Pressure 152/64 H Pulse Oximetry 98 98 Oxygen Flow Rate 06/20/23 01:00 06/20/23 02:00 06/20/23 03:00 Temperature Pulse Rate 61 59 L 58 L Respiratory Rate 15 16 15 Blood Pressure Pulse Oximetry 97 99 97 Oxygen Flow Rate 06/20/23 06:00 06/20/23 04:00 06/20/23 04:19 Temperature 98.4 F Pulse Rate 64 63 71 Respiratory Rate 29 H 27 H 31 H Blood Pressure 124/59 L Pulse Oximetry 95 98 98 Oxygen Flow Rate 2 06/20/23 04:19 06/20/23 05:00 06/20/23 06:00 Temperature Pulse Rate 60 64 Respiratory Rate 39 H 29 H Blood Pressure 124/59 L Pulse Oximetry 98 95 Oxygen Flow Rate Fraction of Inspired Oxygen 24 SaO2/FiO2 Ratio 370 Oxygen Delivery Method Nasal Cannula Oxygen Flow Rate 2 Narrative Exam Narrative: 68-year-old female resting comfortably in bed in no apparent distress. Incisions are clean, dry and intact Const General: cooperative and comfortable Resp Effort & Inspection: normal respiratory effort and able to speak in complete sentences Objective Labs 06/20/23 05:00 06/20/23 05:00 Labs: Laboratory Results - last 24 hr 06/20/23 06/20/23 05:00 05:00 WBC 5.6 RBC 3.61 L Hgb 13.5 Hct 40.2 MCV 111.3 H MCH 37.4 H MCHC 33.6 RDW 12.2 Plt Count 183 Neut % (Auto) 68.9 Lymph % (Auto) 24.[address] [place] % (Auto) 5.0 Eos % (Auto) 1.4 L Baso % (Auto) 0.4 Neut # (Auto) 3900 Lymph # (Auto) 1400 [place] # (Auto) 300 Eos # (Auto) 100 Baso # (Auto) 0 RBC Morphology See below Macrocytosis 2+ H Sodium 138 Potassium 3.8 Chloride 101 Carbon Dioxide 30 BUN 24 H Creatinine 1.02 Estimated GFR 59 L BUN/Creatinine Ratio 23.5 H Glucose 131 H Calcium 9.4 PFSH Medical History Brain aneurysm Chronic kidney disease COPD (chronic obstructive pulmonary disease) Duodenal ulcer perforation Erythrocytosis History of common carotid artery stent placement Hyperlipidemia Hypertension Primary hyperparathyroidism Smoker Surgical History History of appendectomy History of surgical procedure History of surgical procedure Hx of tonsillectomy Social History household members: spouse Smoking Status: Current every day smoker alcohol intake: current substance use type: does not use Assessment & Plan Post-op Postoperative Procedures: Procedures Operation Date: 06/11/23 14:45 Actual Procedure Side Surgeon p L3-4 TLIF Javed Vallecillo MD Postoperative day: 9 Postoperative status narrative: Improving Postoperative plan narrative: Status post lumbar fusion with acute on chronic hypoxemic respiratory failure. Urinary retention. Patient currently stable on 2 L per nasal cannula. Patient had urinary retention after catheter was removed the other day. A trial to remove the catheter again today. Disposition home or [facility] facility today or tomorrow if stable per hospitalist Quality VTE Deep Vein Thrombosis/Pulmonary Embolism Present on Admission: No
[2023-06-20] MEDS: CLOPIDOGREL 75 MG TABLET PO (08:35)
[2023-06-20] MEDS: GABAPENTIN 400 MG CAPSULE 800 MG PO (08:35)
[2023-06-20] MEDS: AMLODIPINE 5 MG TABLET 10 MG PO (08:35)
[2023-06-20] MEDS: ASPIRIN EC 81 MG TABLET PO (08:35)
[2023-06-20] MEDS: METOPROLOL ER 50 MG TABLET PO (08:35)
[2023-06-20] MEDS: LOSARTAN 25 MG TABLET PO (08:35)
[2023-06-20] MEDS: DOCUSATE 100 MG CAPSULE PO (08:35)
[2023-06-20] MEDS: guaiFENesin ER 600 MG TAB PO (08:35)
[2023-06-20] MEDS: PANTOPRAZOLE DR 40 MG TABLET PO (08:35)
--- NOTE | 2023-06-20 08:37 | PM.PN.1 ---
Subjective Subjective Interval history: Feels much better, down to 1 liter O2 (takes at noc and prn and home). No cough or dyspnea. Minimal back pain and no leg weakness or numbness. Wants to discharge directly home (soon). Exam Vital Signs (past 8 hours): - 06/20/23 01:00 06/20/23 02:00 06/20/23 03:00 Temperature Pulse Rate 61 59 L 58 L Respiratory Rate 15 16 15 Blood Pressure Pulse Oximetry 97 99 97 Oxygen Flow Rate 06/20/23 06:00 06/20/23 04:00 06/20/23 04:19 Temperature 98.4 F Pulse Rate 64 63 71 Respiratory Rate 29 H 27 H 31 H Blood Pressure 124/59 L Pulse Oximetry 95 98 98 Oxygen Flow Rate 2 06/20/23 04:19 06/20/23 05:00 06/20/23 06:00 Temperature Pulse Rate 60 64 Respiratory Rate 39 H 29 H Blood Pressure 124/59 L Pulse Oximetry 98 95 Oxygen Flow Rate Fraction of Inspired Oxygen 24 SaO2/FiO2 Ratio 370 Oxygen Delivery Method Nasal Cannula Oxygen Flow Rate 2 Narrative Exam Narrative: NAD, normal speech and calm. Atraumatic head, EOMI. Neck supple and midline trachea. Lungs CTA, normal rate and effort. Globally diminished breath sounds. Heart RRR, without murmur, gallop, or rub. Abdomen Soft, NT, ND No leg edema. No skin rash. Objective Labs 06/20/23 05:00 06/20/23 05:00 Labs: Laboratory Results - last 24 hr 06/20/23 06/20/23 05:00 05:00 WBC 5.6 RBC 3.61 L Hgb 13.5 Hct 40.2 MCV 111.3 H MCH 37.4 H MCHC 33.6 RDW 12.2 Plt Count 183 Neut % (Auto) 68.9 Lymph % (Auto) 24.3 L [place] % (Auto) 5.0 Eos % (Auto) 1.4 L Baso % (Auto) 0.4 Neut # (Auto) 3900 Lymph # (Auto) 1400 [place] # (Auto) 300 Eos # (Auto) 100 Baso # (Auto) 0 RBC Morphology See below Macrocytosis 2+ H Sodium 138 Potassium 3.8 Chloride 101 Carbon Dioxide 30 BUN 24 H Creatinine 1.02 Estimated GFR 59 L BUN/Creatinine Ratio 23.5 H Glucose 131 H Calcium 9.4 PFSH Medical History Brain aneurysm Chronic kidney disease COPD (chronic obstructive pulmonary disease) Duodenal ulcer perforation Erythrocytosis History of common carotid artery stent placement Hyperlipidemia Hypertension Primary hyperparathyroidism Smoker Surgical History History of appendectomy History of surgical procedure History of surgical procedure Hx of tonsillectomy Social History household members: spouse Smoking Status: Current every day smoker alcohol intake: current substance use type: does not use Assessment & Plan Assessment & Plan narrative: 1. Acute on chronic hypoxemic respiratory failure, POA and essentially resolved. . -Acute COPD flare, volume overload. -she is near home O2 needs (she has at home). 2. Urine retention, new and active. -attempt removal Ramos today, failed 2 days ago with retention and reinsertion. 3. HTN, POA and stable. ?- continue home medications of amlodipine, losartan and metoprolol without change -Monitor. 4. DM type 2, POA and stable. -hold glipizide -insulin sliding scale ordered -monitor. 5. PUD with prior perforation, POA and stable. ?- continue home pantoprazole 40 mg ?- no NSAID use. 6. s/p lumbar fusion with Dr. Vallecillo, [place]. ?- PT, OOB ?- dvt ppx per primary service 7. Remote carotid stent, POA and stable. ?- continue asa and plavix ok per surgery ?- continue statin Discharge planning. Home with (likely) vs SNF pending PT. GAYLE (expected date of discharge): 06/21. Time Spent With Patient Time with patient: 30 to 49 minutes with 50% spent counseling/coordinating care Quality VTE Deep Vein Thrombosis/Pulmonary Embolism Present on Admission: No
[2023-06-20] MEDS: ENOXAPARIN 40 MG/0.4 ML SYRINGE SUBCUT (08:44)
--- NOTE | 2023-06-20 09:11 | PT.IPTN ---
Current Diagnoses Type 2 diabetes mellitus without complications (06/11/23) Chronic obstructive pulmonary disease, unspecified (06/11/23) Acute and chronic respiratory failure with hypoxia (06/11/23) Chronic or unspecified duodenal ulcer with perforation (06/11/23) Spinal stenosis, lumbar region with neurogenic claudication (06/11/23) Postlaminectomy syndrome, not elsewhere classified (06/11/23) Acute kidney failure, unspecified (06/11/23) Other specified abnormal findings of blood chemistry (06/11/23) Surgery Performed Operation Date: 06/11/23 14:45 Actual Procedures p L3-4 TLIF - Javed Vallecillo MD Physical Therapy Treatment Note M2 PT-IP Current Condition Start: 06/12/23 13:00 Freq: NEEDED Status: Active Protocol: Document 06/18/23 09:24 SP (Rec: 06/18/23 09:45 SP [id number]) Physical Therapy Current Condition Current Condition Evaluation Date 06/12/23 Treatment Diagnosis s/p lumbar TLIF L3-L4 Onset Date 06/11/23 M3 PT-IP Subjective Start: 06/12/23 13:00 Freq: NEEDED Status: Active Protocol: Document 06/20/23 10:01 TS (Rec: 06/20/23 10:22 TS [id number]) Subjective Physical Therapy Visit Type Type Treatment Note Visit Start Time 09:11 Visit Stop Time 09:31 Total Visit Minutes 20 Number of BAR MACHINE OPERATOR MULTIPLE SPINDLE Visits 3 Physical Therapy Visit Comments Patient Comments Pt found resting on 1L of o2 at 95%, HR 72, she is agreeable to PT. Therapy Pain Assessment Pain When Pain Assessed During Mobility Pain Present Pain Present Pain Reported M4 PT-IP Mobility and Gait Start: 06/12/23 13:00 Freq: NEEDED Status: Active Protocol: Document 06/20/23 10:01 TS (Rec: 06/20/23 10:22 TS [id number]) PT-Bed Mobility Assessment Rolling Type of Rolling Log Rolling,Roll to Right Level of Assist Standby Assistance Supine to Sit Supine to Sit Standby Assistance,Bedrails Sit to Supine Sit to Supine Standby Assistance Scooting Scooting to Edge of Bed Standby Assistance PT-Transfer Assessment Sit to and From Stand Sit to and from Stand Standby Assistance,Use of Upper Extremities Equipment Transfer Assistive Device Gait Belt,Front Wheeled Walker Orthotic/Prosthetic Devices or Brace: No Comments Mobility Comments Sit to stand from chair SBA with BUE support pushing from arms of chair. She ambulated to toilet SBA with 4ww ~8'. OPTICAL INSTRUMENT ASSEMBLER performed pericare for pt after use of restroom. She performed sit to stand with use of grab bar SBA. She ambulated ~100'SBA w/4WW, is unsteady with gait but has no buckling or LOB. Pt fatigued quickly with gait and requested back to room. She performed sit to supine/supine to sit SBA w HOB flat. Pt transfer back ot chair SBA. She remained on 1L of o2 throughout session, could not get reading for o2 after mobility. She denied any dizziness, lightheadedness or SOB. Pt was left in chair with all needs met. Gait Assessment Gait Gait Assistance Required: Standby Assistance,1 Person Assist Distance (Feet) 100 Assistive Devices Assistive Device Gait Belt,Front Wheeled Walker Orthotic/Prosthetic Devices or Brace: No Gait Deviations General Gait Pattern Antalgic,Decreased Stride Length,Decreased Feet Clearance,Flexed Trunk,Lateral Trunk Lean,Wide Based Gait Factors Limiting Gait Function Factors Limiting Gait Function Decreased Activity Tolerance, Decreased Strength,Difficulty Following Directions, Incoordination,Limited Range of Motion,Poor Balance,Poor Safety Awareness,Respiratory Distress Comments Gait Comments See mobility comments. PT-Balance Assessment Sitting Balance and Reactions Static Sitting Balance Ability Good Dynamic Sitting Balance Ability Fair Standing Balance and Reactions Static Standing Balance Ability Fair Dynamic Standing Balance Ability Fair Device Used FWW M5 PT-IP Objective Assessments Start: 06/12/23 13:00 Freq: NEEDED Status: Active Protocol: Document 06/12/23 13:00 AB (Rec: 06/12/23 13:28 AB [id number]) Orientation Orientation/Cognition Level of Alertness Alert Orientation Name,Age,Birthday,Month,Date, Year,Day of Week,Place, Situation Language Function Ability No Deficits Noted Safety Awareness Understands Safety Issues Memory Description No Deficits Noted Gross Range of Motion Upper Extremity ROM Assessment Within Functional Limits Lower Extremity ROM Assessment Within Functional Limits Strength Upper Extremity Strength Assessment Within Functional Limits Lower Extremity Strength Assessment Bilaterally Impaired M6 PT-IP Treatment Start: 06/12/23 13:00 Freq: NEEDED Status: Active Protocol: Document 06/20/23 10:01 TS (Rec: 06/20/23 10:22 TS [id number]) Physical Therapy Treatment Education Education Provided Precautions,Safety M7 PT-IP Assessment and Plan Start: 06/12/23 13:00 Freq: NEEDED Status: Active Protocol: Document 06/20/23 10:01 TS (Rec: 06/20/23 10:22 TS [id number]) PT Summary Assessment and Plan Potential Rehabilitation Potential Fair Summary Impairments Pain,ROM,Strength,Balance, Coordination,Bed Mobility, Transfers,Gait,Activity Tolerance Progress Towards Goals Progressing Toward Goals Assessment Summary Celi continues to make good progress with her mobility. She is SBA for all bed mobility and for sit to stands . She continues to ambulate ~ 100' SBA, denied any dizziness or SOB but did fatigue quickly. She made progress in recalling her spinal precautions to 3/3 this session. PT recommends return home with 24/ assist and outpatient PT. Goals Bed Mobility Goal Independent Transfer Goal Standby Assistance,Front Wheeled Walker Gait Goal Standby Assistance,Front Wheel Walker Gait Distance 50 Other Goals Pt to recall 3/3 lumbar spine surgical precautions in order to improve her post operative outcomes and improve her safety. Days to Meet Goals 5 Frequency of Treatment Frequency Of Treatment Twice a Day Treatment Plan Physical Therapy Treatment Plan Bed Mobility Training,Transfer Training,Gait Training, Therapeutic Exercise,Balance Retraining,Post Op Education, Discharge Planning,Hot or Cold Pack,Neuromuscular Re-ed, Coordination Retraining,Manual Therapy Other Recommendations and Next Treatment Continue to progress gait, Focus assess carryover of spinal precautions. Precautions Lumbar Precautions Log Roll,No Twisting,Limit Bending,Lifting Restriction of 10 lbs,Gait Belt above Incisional Area Other Precautions Fall risk Weight Bearing Status Weight Bearing Status Weight Bear as Tolerated Recommendations To Nursing Amount of Assist Needed Standby Assistance Discharge Recommendations PT Discharge Recommendations Home with 24/ Assist Available,Home Health Equipment Needed for Home Before FWW Discharge Transportation Needs at Discharge Private Vehicle
--- NOTE | 2023-06-20 10:26 | PC.NURSE ---
Rmaos catheter removed, patient tolerated well.
[2023-06-20] MEDS: ALBUTEROL/IPRATROPIUM 3 ML AMPUL INH ×2 (11:17→14:23)
--- NOTE | 2023-06-20 11:27 | OT.IP.TRT ---
Current Diagnoses Type 2 diabetes mellitus without complications (06/11/23) Chronic obstructive pulmonary disease, unspecified (06/11/23) Acute and chronic respiratory failure with hypoxia (06/11/23) Chronic or unspecified duodenal ulcer with perforation (06/11/23) Spinal stenosis, lumbar region with neurogenic claudication (06/11/23) Postlaminectomy syndrome, not elsewhere classified (06/11/23) Acute kidney failure, unspecified (06/11/23) Other specified abnormal findings of blood chemistry (06/11/23) Surgery Performed Operation Date: 06/11/23 14:45 Actual Procedures p L3-4 TLIF - Javed Vallecillo MD Occupational Therapy Treatment Note M2 OT-IP Current Condition Start: 06/12/23 13:21 Freq: Status: Active Protocol: Document 06/12/23 11:25 [facility] (Rec: 06/12/23 13:55 [facility] [id number]) Occupational Therapy Current Condition Current Condition Evaluation Date 06/12/23 Treatment Diagnosis S/P L3-4 TLIF Diagnosis Onset Date 06/11/23 Post Operative Precautions Lumbar Precautions Log Roll,No Twisting,Limit Bending,Lifting Restriction of 10 lbs,Gait Belt above Incisional Area M3 OT- IP Subjective and Pain Start: 06/12/23 13:21 Freq: Status: Active Protocol: Document 06/20/23 11:27 [facility] (Rec: 06/20/23 12:13 [facility] [id number]) OT- Subjective Occupational Therapy Visit Type Type Treatment Note Visit Start Time 11:27 Visit Stop Time 11:53 Total Visit Minutes 26 Occupational Therapy Visit Comments Patient Comments Pt not wanting to shower as states may go home today. Pt agrees to do oral care at the sink and practice LB dressing. Patient/Caregiver Goals To go home. OT Pain Assessment Pain When Pain Assessed At Rest Pain Present Pain Present Denied Pain M4 OT- IP ADL's Start: 06/12/23 13:21 Freq: Status: Active Protocol: Document 06/20/23 11:27 [facility] (Rec: 06/20/23 12:13 [facility] [id number]) OT [id number] Comments OT Self-Feeding Comments not meal time OT ADL-Grooming General Evaluation Grooming Ability Independent Comments OT Grooming Comments While standing with 4ww. OT ADL-Oral Care General Eval Oral Care Ability Independent OT ADL-Dressing General Eval Lower Body Dressing Ability Standby Assistance,Moderate Assistance Comments OT Dressing Comments Able to practice with drum drier and sock aid and able to do LB dressing. Encouraged pt and to get items so pt able to be more independent with her ADL needs. Otherwise pt will need her to assist her due to her back precautions. OT ADL-Toileting Comments OT Toileting Comments Ramos just taken out eariler and pt not having to go. Continue to suggest BSC may be helpful as prior to sx pt having to get up 3 times at night or use of briefs to prevent from rushing to the bathroom. Otherwise encouraged pt's to provide assist/supervision. OT ADL-Bathing Comments OT Bathing Comments Pt refused. M5 OT- IP IADL's Start: 06/12/23 13:21 Freq: Status: Active Protocol: Document 06/12/23 11:25 [facility] (Rec: 06/12/23 13:55 [facility] [id number]) OT-Instrumental Activities of Daily Living Deficits IADL Deficits Identified Deficits Home Safety Awareness Awareness of Need for Assistance at Home Decreased Awareness Home Safety Comments Pt is forgetful that she just had back surgery and assuming that she is able to do it on her own or that he is capable to assist. At this time would be best for her to assist with her needs as she is forgetful. Meal Preparation Meal Preparation Caregiver Provides Assist Mail Sorter Mail Sorter Caregiver Provides Assist M6 OT- IP Functional Cognition Start: 06/12/23 13:21 Freq: Status: Active Protocol: Document 06/20/23 11:27 [facility] (Rec: 06/20/23 12:13 [facility] [id number]) Cognitive Factors Limiting Selfcare Function Cognitive Ability Level of Alertness Alert Patient Orientation Name,Place,Situation Attention Span Ability Capable of Focused Attention, Capable of Sustained Attention Memory Description Short Term Impaired Safety Awareness Decreased Recall of Precautions,Decreased Ability to Apply Precautions Cognitive Comments Cognitive Assessment Comments Pt doing better today and able to sequence through her ADL's without assist. Pt still needing safety cues to lock the 4ww. Pt still needing cues to recall and follow her back precautions. M7 OT- IP Mobility and Balance Start: 06/12/23 13:21 Freq: Status: Active Protocol: Document 06/20/23 11:27 [facility] (Rec: 06/20/23 12:13 [facility] [id number]) OT-Transfer Assessment Sit to and From Stand Sit to and from Stand Standby Assistance Transfers Transfer Ability Standby Assistance Technique Transfer Destination Chair Transfer Technique Stand Step Pivot Devices Transfer Assistive Devices Gait Belt,4 Wheeled Walker Comments Mobility Comments Pt SBA with 4ww and mainly just needing cues to lock with brakes on the 4ww. Pt on 2L and at rest 91% and after up at 93%. Pt able to safely manage the line to the sink and needing reminders to watch out for the O2 line getting back to the recliner. OT- Balance Assessment Sitting Balance and Reactions Static Sitting Balance Ability Good Dynamic Sitting Balance Ability Good Standing Balance and Reactions Static Standing Balance Ability Good Dynamic Standing Balance Ability Fair M8 OT- IP Objective Assessments Start: 06/12/23 13:21 Freq: Status: Active Protocol: Document 06/12/23 11:25 [facility] (Rec: 06/12/23 13:55 [facility] [id number]) OT Gross Range of Motion Upper Extremity Range of Motion Assessment Within Functional Limits OT Strength Upper Extremity Strength Assessment Within Functional Limits M9 OT- IP Assessment and Plan Start: 06/12/23 13:21 Freq: Status: Active Protocol: Document 06/20/23 11:27 [facility] (Rec: 06/20/23 12:13 [facility] [id number]) OT Summary Assessment and Plan Potential Rehabilitation Potential Good Analytic Complexity at Evaluation Low Summary OT Impairments Pain,Strength,Balance, Sensation,Functional Mobility, Grooming,Dressing,Toileting, Bathing,Toilet Transfers, Shower Transfers,Activity Tolerance Progress Towards Goals Progressing Toward Goals Assessment Summary Pt doing better with her mobility needs. Pt able to practice use of LB dressing equipment with supervision. Pt 's states will assist her due to her back precautions. Pt know looking to go home when medically stable with home health. Goals Self-Feeding Goal Independent Grooming Goal Independent Dressing Goal Minimal Assistance Toileting Goal Standby Assistance Bathing Goal Minimal Assistance Toilet Transfer Goal Independent Shower Transfer Goal Contact Guard Assistance Days to Meet Goals 5 Frequency of Treatment Frequency Of Treatment Once a Day Treatment Plan OT Treatment Plan ADL Training,Functional Cognition Training,Functional Mobility,Patient/Family Education,Discharge Planning Discharge Recommendations OT Discharge Recommendations Home with 24/ Assist Available,Home Health Home Equipment Needs BSC, lower body dressing equipment Transportation Needs at Discharge Private Vehicle
[2023-06-20] MEDS: INSULIN LISPRO 100 UNIT/ML 3ML VIAL SUBCUT (12:14)
--- NOTE | 2023-06-20 13:06 | CM.DPC ---
DCP HH Planning: Per MD, pt remains on oxygen around 1LNC and pt typically uses oxygen at home nocturnally. Pt's [place] d/c'd and awaiting pt to void independently with possible d/c home today vs tomorrow pending progress. Per OVERWEAVER, pt made good progress and recommending discharge home with spouse assist and HH. SW met bedside with pt and spouse and explained role and discussed SNF vs HH. Pt and spouse both in agreement that they feel pt can now safely discharge home and are agreeable with HH and preference is [facility] as they have used them in the past. Pt is hopeful for d/c home today and spouse plans to provide transport at d/c. ORIANA Cui kindly faxed initial referral to [facility] and called and alerted them and F2F done and HH orders completed and sent to [facility]. Plan: SW to follow for plan of d/c home with spouse assist and new [facility] and to fax d/c summary to [facility] when available. DARWIN Patel
--- NOTE | 2023-06-20 16:20 | PT.IPTN ---
Current Diagnoses Type 2 diabetes mellitus without complications (06/11/23) Chronic obstructive pulmonary disease, unspecified (06/11/23) Acute and chronic respiratory failure with hypoxia (06/11/23) Chronic or unspecified duodenal ulcer with perforation (06/11/23) Spinal stenosis, lumbar region with neurogenic claudication (06/11/23) Postlaminectomy syndrome, not elsewhere classified (06/11/23) Acute kidney failure, unspecified (06/11/23) Other specified abnormal findings of blood chemistry (06/11/23) Surgery Performed Operation Date: 06/11/23 14:45 Actual Procedures p L3-4 TLIF - Javed Vallecillo MD Physical Therapy Treatment Note M2 PT-IP Current Condition Start: 06/12/23 13:00 Freq: NEEDED Status: Active Protocol: Document 06/18/23 09:24 SP (Rec: 06/18/23 09:45 SP [id number]) Physical Therapy Current Condition Current Condition Evaluation Date 06/12/23 Treatment Diagnosis s/p lumbar TLIF L3-L4 Onset Date 06/11/23 M3 PT-IP Subjective Start: 06/12/23 13:00 Freq: NEEDED Status: Active Protocol: Document 06/20/23 16:20 AB (Rec: 06/20/23 18:23 AB [email or web address]) Subjective Physical Therapy Visit Type Type Treatment Note Visit Start Time 16:20 Visit Stop Time 16:51 Total Visit Minutes 21 Number of KNOWLEDGE MANAGER Visits 0 Physical Therapy Visit Comments Patient Comments agreeable to do PT Therapy Pain Assessment Pain When Pain Assessed At Rest Pain Present Pain Present Pain Reported Location Back Intensity 2 Scale Used Numeric (0 - 10) M4 PT-IP Mobility and Gait Start: 06/12/23 13:00 Freq: NEEDED Status: Active Protocol: Document 06/20/23 16:20 AB (Rec: 06/20/23 18:23 AB [email or web address]) PT-Bed Mobility Assessment Rolling Type of Rolling Log Rolling Level of Assist Standby Assistance Supine to Sit Supine to Sit Standby Assistance Sit to Supine Sit to Supine Standby Assistance PT-Transfer Assessment Sit to and From Stand Sit to and from Stand Standby Assistance,Contact Guard Assistance Equipment Transfer Assistive Device Gait Belt,4 Wheeled Walker Orthotic/Prosthetic Devices or Brace: No Transfers Transfer Destination Bed,Chair,Toilet Transfer Technique ambulated Transfer Ability Level of Assist Standby Assistance,Contact Guard Assistance,1 Person Assistance,Use of Upper Extremities Comments Mobility Comments pt sitting on the chair and agreeable to do PT. O2 sat with 0.5l/min: 88-90. reviewed back precautions with pt and pt able to recall 3/3. spouse just arrived. per nurse pt's O2 sat should stay 88-90 due to COPD. pt requested to use the toilet. completed sit to stand CGA. 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 pt ambulated to the toilet using 4WW SBA to CGA. cues for safety and to slow down. completed toileting with assist for brief management. sit to stand from the toilet using grab bar SBA. ambulated in room using 4WW SBA to CGA ~ 45 ft. cued pt for PLB in between tasks. pt sat on EOB and completed log roll bed mobility SBA. educated pt on safety and pacing and doing PLB in between actvities. pt understood. completed sit to stand from EOB SBA and step transfer to chair using 4WW SBA to CGA. positioned pt on chair. call light and table placed within reach. spouse stated that he knows how to assist pt. Gait Assessment Gait Gait Assistance Required: Standby Assistance,Contact Guard Assist Distance (Feet) 45 Able to Maintain Weight Bearing Status Yes During Gait Assistive Devices Assistive Device Gait Belt,4 Wheeled Walker Orthotic/Prosthetic Devices or Brace: No Gait Deviations General Gait Pattern Ataxic,Decreased Stride Length ,Decreased Feet Clearance,Step -to Gait Factors Limiting Gait Function Factors Limiting Gait Function Decreased Activity Tolerance, Decreased Strength,Limited Range of Motion,Pain,Poor Balance,Poor Safety Awareness M5 PT-IP Objective Assessments Start: 06/12/23 13:00 Freq: NEEDED Status: Active Protocol: Document 06/12/23 13:00 AB(2) (Rec: 06/12/23 13:28 AB(2) [id number]) Orientation Orientation/Cognition Level of Alertness Alert Orientation Name,Age,Birthday,Month,Date, Year,Day of Week,Place, Situation Language Function Ability No Deficits Noted Safety Awareness Understands Safety Issues Memory Description No Deficits Noted Gross Range of Motion Upper Extremity ROM Assessment Within Functional Limits Lower Extremity ROM Assessment Within Functional Limits Strength Upper Extremity Strength Assessment Within Functional Limits Lower Extremity Strength Assessment Bilaterally Impaired M6 PT-IP Treatment Start: 06/12/23 13:00 Freq: NEEDED Status: Active Protocol: Document 06/20/23 16:20 AB (Rec: 06/20/23 18:23 AB [id number]) Physical Therapy Treatment Education Education Provided Safety M7 PT-IP Assessment and Plan Start: 06/12/23 13:00 Freq: NEEDED Status: Active Protocol: Document 06/20/23 16:20 AB (Rec: 06/20/23 18:23 AB [email or web address]) PT Summary Assessment and Plan Potential Rehabilitation Potential Good Summary Impairments Pain,ROM,Strength,Balance, Coordination,Sensation,Tone, Cognition,Bed Mobility, Transfers,Gait,Activity Tolerance Progress Towards Goals Slow Progress due to Activity Tolerance Assessment Summary pt progressing slowly with mobility and able to ambulate using 4WW. spouse plans to assist pt at home. Pt will benefit from HHPT to improve overall strength and activity tolerance. Goals Bed Mobility Goal Independent Transfer Goal Independent,Four Wheeled Walker Gait Goal Independent,Four Wheel Walker Gait Distance 250 Days to Meet Goals 5 Frequency of Treatment Frequency Of Treatment Twice a Day Treatment Plan Physical Therapy Treatment Plan Bed Mobility Training,Transfer Training,Gait Training, Therapeutic Exercise,Balance Retraining,Post Op Education, Discharge Planning,Hot or Cold Pack,Neuromuscular Re-ed, Coordination Retraining,Manual Therapy Precautions Lumbar Precautions Log Roll,No Twisting,Limit Bending,Lifting Restriction of 10 lbs,Gait Belt above Incisional Area Other Precautions Fall risk, O2 sat Recommendations To Nursing Amount of Assist Needed 1 Person Assist Discharge Recommendations PT Discharge Recommendations Home with 16/04 Assist Available,Home Health Transportation Needs at Discharge Private Vehicle
--- NOTE | 2023-06-20 17:21 | P.DS_ITS ---
History of Present Illness History of Present Illness Date Patient Seen: 06/20/23 Time Patient Seen: 17:22 Date of Onset of Symptoms: 06/12/23 Chief complaint: TLIF Narrative: This is a 68 year old female with PMH of prior brain aneurysm, CKD, COPD with chronic respiratory failure on 2L O2 at home, type 2 DM, previous duodenal ulcer perforation, carotid stent placement, HTN, active smoker at 0.5 ppd who underwent posterior lumbar fusion with Dr. Vallecillo yesterday. She was on 4-5L of O2 after surgery. By this morning she has returned to her usual 2L and is currently at 91%. She denies recent cough, fever, chills. She states she started on oxygen after an RSV infection last year and has not been able to come off since. She has no shortness of breath today, abdominal pain, nausea, vomiting and feels her usual self. Consult was requested for worsening respiratory status after back surgery. Discharge Providers Provider Date of admission: 06/11/23 12:08 Discharge Date: 06/20/23 Primary care physician: Karri Powers DO Consults: 06/11/23 18:09 Consult to Internal Medicine Routine Comment: Consulting Provider: Favio Decker Reason for consultation: COPD, CKD, Duodenal Ulcers, random jerking movements. Has provider been notified: Yes 06/11/23 18:50 Consult to Occupational Therapy Evaluate & Treat Comment: Physician Instructions: Evaluate and treat Consult to Physical Therapy Evaluate & Treat Comment: Physician Instructions: Evaluate and Treat 06/15/23 01:31 Consult to Hospitalist Service Routine Comment: Consulting Provider: Zackary Carreon Reason for consultation: requiring high flow 06/15/23 01:49 Consult to Tele-state assessed properties director Routine Comment: Consulting Provider: [facility] [employer] Reason for consultation: Dietetics Professor services 06/19/23 17:11 Consult to Tele-state assessed properties director Routine Comment: Consulting Provider: [employer] Reason for consultation: Dietetics Professor services 06/20/23 13:12 Consult to Home Health Routine Comment: TLIF, resp failure with bipap/heated highflow to N Reason For Exam: Set up RN/PT for discharge to home Discharge provider: Phong Wing MD Summary Hospital Course Discharge Diagnosis: 1. Acute on chronic hypoxemic respiratory failure, POA and essentially resolved. . -Acute COPD flare, volume overload. 2. Urine retention, new and active. 3. HTN, POA and stable. 4. DM type 2, POA and stable. 5. PUD with prior perforation, POA and stable. 6. s/p lumbar fusion with Milli Reyes. 7. Remote carotid stent, POA and stable. ?- continue asa and plavix ok per surgery ?- continue statin Hospital Course: The patient developed acute respiratory failure likely secondary to volume overl oad as well as COPD exacerbation. The patient was treated for COPD exacerbation and did require high-flow oxygen. Remained on high-flow oxygen for a number of days and ultimately began after these other measures. Over the last 3 days of her hospitalization she was able to wean off from the oxygen and in fact came down to 0 L at rest with 1 L with exertion. She does have oxygen at home and uses it prn and at night. On the day of discharge she was discussed [id number] with orthopedic as well as her . She did very well with physical therapy and was comfortable without any oxygen at rest. She current home, her agreed. Status at Discharge Cognitive/behavioral status at discharge: oriented Functional status at discharge: independent ambulation Overall status at discharge: patient is progressing back to baseline Time Spent with Patient Time spent: Greater than 30 minutes Exam Vital Signs (past 8 hours): - 06/20/23 11:16 06/20/23 11:17 06/20/23 14:23 Temperature Pulse Rate 70 70 77 Respiratory Rate 23 18 18 Blood Pressure 174/69 H Pulse Oximetry 100 92 91 Oxygen Delivery Method Nasal Cannula Nasal Cannula Oxygen Flow Rate 2 1 0.5 Fraction of Inspired Oxygen 24 06/20/23 10:00 06/20/23 11:00 06/20/23 11:13 Temperature Pulse Rate 65 67 66 Respiratory Rate 20 14 Blood Pressure Pulse Oximetry 91 90 L 92 Oxygen Delivery Method Oxygen Flow Rate Fraction of Inspired Oxygen 06/20/23 11:13 06/20/23 12:00 06/20/23 13:00 Temperature Pulse Rate 73 72 Respiratory Rate 32 H Blood Pressure 174/69 H Pulse Oximetry 93 88 L Oxygen Delivery Method Oxygen Flow Rate Fraction of Inspired Oxygen 06/20/23 14:00 06/20/23 15:00 06/20/23 15:49 Temperature Pulse Rate 72 78 78 Respiratory Rate Blood Pressure Pulse Oximetry 92 92 92 Oxygen Delivery Method Oxygen Flow Rate Fraction of Inspired Oxygen 06/20/23 15:49 06/20/23 16:00 06/20/23 16:25 Temperature 99.2 F Pulse Rate 72 Respiratory Rate Blood Pressure 116/81 Pulse Oximetry 89 L Oxygen Delivery Method Oxygen Flow Rate Fraction of Inspired Oxygen Fraction of Inspired Oxygen 24 SaO2/FiO2 Ratio 383 Oxygen Delivery Method Nasal Cannula Oxygen Flow Rate 0.5 Narrative Exam Narrative: NAD, normal speech and calm. Atraumatic head, EOMI. Neck supple and midline trachea. Lungs CTA, normal rate and effort. Heart RRR, without murmur, gallop, or rub. Abdomen Soft, NT, ND No leg edema. No skin rash. Objective Labs 06/20/23 05:00 06/20/23 05:00 Labs: Laboratory Results - last 24 hr 06/20/23 06/20/23 05:00 05:00 WBC 5.6 RBC 3.61 L Hgb 13.5 Hct 40.2 MCV 111.3 H MCH 37.4 H MCHC 33.6 RDW 12.2 Plt Count 183 Neut % (Auto) 68.9 Lymph % (Auto) 24.3 L [place] % (Auto) 5.0 Eos % (Auto) 1.4 L Baso % (Auto) 0.4 Neut # (Auto) 3900 Lymph # (Auto) 1400 [place] # (Auto) 300 Eos # (Auto) 100 Baso # (Auto) 0 RBC Morphology See below Macrocytosis 2+ H Sodium 138 Potassium 3.8 Chloride 101 Carbon Dioxide 30 BUN 24 H Creatinine 1.02 Estimated GFR 59 L BUN/Creatinine Ratio 23.5 H Glucose 131 H Calcium 9.4 PFSH Medical History Brain aneurysm Chronic kidney disease COPD (chronic obstructive pulmonary disease) Duodenal ulcer perforation Erythrocytosis History of common carotid artery stent placement Hyperlipidemia Hypertension Primary hyperparathyroidism Smoker Surgical History History of appendectomy History of surgical procedure History of surgical procedure Hx of tonsillectomy Social History household members: spouse Smoking Status: Current every day smoker alcohol intake: current substance use type: does not use Discharge Assessment & Plan Assessment and Plan Assessment: 1. Acute on chronic hypoxemic respiratory failure, POA and essentially resolved. . -Acute COPD flare, volume overload. 2. Urine retention, new and active. 3. HTN, POA and stable. 4. DM type 2, POA and stable. 5. PUD with prior perforation, POA and stable. 6. s/p lumbar fusion with Milli Reyes. 7. Remote carotid stent, POA and stable. ?- continue asa and plavix ok per surgery ?- continue statin Plan of Treatment: Home with a resumption of all prior to admit chronic medications, use O2 with exertion as needed, and follow up with PCP within 6 days and Ortho as scheduled within a week. Discharge Plan Discharge Plan Patient Disposition: Home Discharge orders & Medications Prescriptions: Continued atorvastatin 80 mg Tablet 80 mg PO DAILY metoprolol succinate 50 mg Tablet Extended Release 24 Hr 50 mg PO DAILY clopidogrel 75 mg Tablet 75 mg PO DAILY acetaminophen 500 mg Tablet 1,500 mg PO Q3H PRN (Reason: Pain (Scale Score 1-3)) Patient Comments: patient notified max dose 3000mg/24hours amlodipine 10 mg Tablet 10 mg PO DAILY glipizide 2.5 mg Tablet Extended Release 24hr 2.5 mg PO DAILY pantoprazole 40 mg Tablet,Delayed Release (Dr/Ec) 40 mg PO DAILY losartan 25 mg Tablet 25 mg PO DAILY pramipexole 0.25 mg Tablet 0.25 mg PO DAILY albuterol sulfate 90 mcg/actuation Hfa Aerosol Inhaler 2 puff INHALATION Q4-6H PRN (Reason: Dyspnea) aspirin 81 mg Capsule 81 mg PO DAILY gabapentin 400 mg capsule 800 mg PO BID Medication counseling provided by Pharmacist: No Follow up/Referrals: Javed Vallecillo MD [Physician] - 2 Weeks (You will need to call & schedule this appointment please let them know you recently had surgery & was in the hospital ) Karri Powres, [Primary Care Provider] - Diet/Activity/Treatments Diet: Diet as Tolerated Activity: UP and walking as tolerated Cold/Heat Therapy: Heat to back as needed Skin/Wound/Dressing Care Report to your healthcare provider any signs of infection, such as:: chills, fever, night sweats, unusual drainage and unusual redness Dressing: Keep dressing intact until 2 week follow up with orthopedics. If it becomes soiled please replace with clean gauze/bandage. Visit Report/Discharge Packet Instructions: DI for Transforaminal Lumbar Interbody Fusion Stand Alone Forms: Patient Portal/API, Surgery Discharge Discharge Data Primary Care Provider: Karri Powers VTE Deep Vein Thrombosis/Pulmonary Embolism Present on Admission: No
== END 2023-06-20 18:35 | disposition home or self-care (01) | DRG 453 ==
LOC: AC 06-14 14:39 → ICU 06-15 01:45
PROVIDERS: Hospitalist; Internal Medicine; Internal Medicine Critical Care Medicine; Admitting Provider Orthopaedic Surgery Orthopaedic Surgery of the Spine; PCP Student in an Organized Health Care Education/Training Program; Referring Provider Physical Medicine & Rehabilitation; Visit Provider Orthopaedic Surgery Orthopaedic Surgery of the Spine
PROC: 0SG00AJ Fusion of Lumbar Vertebral Joint with Interbody Fusion Device, Posterior Approach, Anterior Column, Open Approach (ICD-10-PCS; principal; 2023-06-11 14:45)
DX: M48.062 Spinal stenosis, lumbar region with neurogenic claudication (principal); J96.21 Acute and chronic respiratory failure with hypoxia; N17.9 Acute kidney failure, unspecified; J44.1 Chronic obstructive pulmonary disease with (acute) exacerbation; M96.1 Postlaminectomy syndrome, not elsewhere classified; F17.210 Nicotine dependence, cigarettes, uncomplicated; I10 Essential (primary) hypertension; K27.9 Peptic ulcer, site unspecified, unspecified as acute or chronic, without hemorrhage or perforation; T40.605A Adverse effect of unspecified narcotics, initial encounter; E11.59 Type 2 diabetes mellitus with other circulatory complications; R33.9 Retention of urine, unspecified; E78.5 Hyperlipidemia, unspecified; Z95.828 Presence of other vascular implants and grafts; Z99.81 Dependence on supplemental oxygen; Z79.84 Long term (current) use of oral hypoglycemic drugs
CPT/HCPCS: 36415; 36592; 36600; 71045; 71275; 72100; 76000; 80048; 82607; 82746; 82805; 82962; 83735; 83880; 84145; 84443; 84484; 85025; 85027; 87040; 87086; 87797; 93306; 94640; 94660; 94667; 94762; 97110; 97116; 97162; 97165; 97530; 97535; 99232; 99291; C1713; C9290; J0171; J0690; J1100; J1170; J1642; J1650; J1815; J1940; J2405; J2543; J2704; J2920; J2930; J3010; J3410; J3475; J7613; Q9967